=== PATIENT | male | born 1930 | race Caucasian/White ===

== ENCOUNTER 2016-02-20 12:24 | Observation (INO) ==
--- NOTE | 2016-02-20 12:42 | Emergency Department Note ---
Disposition Clinical Impression: Pneumonia, Alzheimer's dementia, Frequent falls, Failure to thrive Disposition: Admitted As Inpatient Condition: Fair Referrals: NO,PCP [Non-Partnered Physician] - Forms: ED Satisfaction Letter Time of Disposition: 14:41 General Adult HPI - General Chief complaint: ED Altered Mental Status Stated complaint: ams Time Seen by Provider: 02/20/16 12:35 Source: patient, EMS Mode of arrival: EMS Limitations: altered mental status Nursing Notes Reviewed: Yes Vital Signs Reviewed: Yes - History of Present Illness HPI Narrative: This is an 85-year-old male who presents with increased confusion. Patient has a history of Alzheimer's dementia and his 's having a hard time taking care of him at home. Patient is not able to feed himself anymore and he is becoming increasingly more difficult to deal with. There is no one here with the patient at this time and so all history is obtained from EMS patient is not really a good historian he is oriented to his name only. Patient is also apparently having more falls at home. Patient was just seen here 3 days ago for a fall and sent back home and he had another one. Pain Scale: 1 - Related Data Previous Rx's Medication Instructions Recorded Nystatin Cream [Mycostatin Cream] 1 appl TP BID #1 tube 08/17/15 Tramadol HCl [Ultram] 50 mg PO TID PRN #20 tab 02/17/16 Allergies Allergy/AdvReac Type Severity Reaction Status Date / Time No Known Allergies Allergy Verified 08/17/15 10:29 Limitations: ROS unobtainable due to patients medical condition (AMS) Past Medical History - Past Medical History Source: old records reviewed Medical history: Reports: dementia, diabetes, hyperlipidemia, hypertension, osteoporosis Psychiatric history: Reports: no psych history - Social History Smoking Status: Former smoker Smokeless Tobacco Status: No Alcohol use: Reports: none Drug use: Reports: none Physical Exam - General Limitations: altered mental status General appearance: alert, in no apparent distress - Head Head exam: atraumatic, normocephalic, normal inspection - Eye Eye exam: Present: normal appearance, PERRL, EOMI - ENT ENT exam: normal exam, normal oropharynx, mucous membranes dry - Expanded ENT Exam External ear exam: Present: normal external inspection Mouth exam: Present: normal external inspection Teeth exam: Present: normal inspection Throat exam: Present: normal inspection - Neck Neck exam: Present: normal inspection, full ROM, trachea midline - Chest Chest inspection: Present: normal inspection, symmetric chest wall rise - Respiratory Respiratory exam: Present: normal lung sounds bilaterally - Cardiovascular Cardiovascular exam: Present: regular rate, normal rhythm, normal heart sounds - Abdominal Exam Abdominal exam: Present: soft, Non-Tender. Absent: tenderness, distention, guarding, rebound, rigidity - Extremities Exam Extremities exam: Present: normal inspection, full ROM. Absent: tenderness, pedal edema - Expanded Upper Extremity Exam Shoulder exam: Present: normal inspection, full ROM Arm exam: Present: normal inspection, full ROM Elbow exam: Present: normal inspection, full ROM Forearm/Wrist exam: Present: normal inspection, full ROM Hand exam: Present: normal inspection, full ROM Vascular exam: Normal: capillary refill, radial pulse - Expanded Lower Extremity Exam Hip/Pelvis exam: Present: normal inspection, full ROM Upper leg exam: Present: normal inspection, full ROM Knee exam: Present: normal inspection, full ROM Lower leg exam: Present: normal inspection, full ROM, abrasion (superficial abrasions to b/l lower legs) Ankle exam: Present: normal inspection, full ROM Foot/toe exam: Present: normal inspection, full ROM Neurovascular/Tendon exam: Absent: motor deficit, sensory deficit, tendon deficit - Back Exam Back exam: Present: normal inspection, full ROM. Absent: tenderness - Neurological Exam Neurological exam: Present: alert. Absent: oriented X3 - Expanded Neurological Exam Patient oriented to: Present: person. Absent: place, time Coma Scale Eye Opening: Spontaneous Coma Scale Motor Response: Obeys Commands Coma Scale Verbal Response: Confused Coma Scale Total: 14 - Psychiatric Psychiatric exam: Present: normal affect, normal mood - Skin Skin exam: Present: warm, dry, normal color, other (abrasions to lower legs noted) Course - Consultations Consultation #1: I spoke with Dr. Fede collins to admit. Time: 15:15 Vital Signs Temperature 97.3 F L 02/20/16 12:26 Pulse Rate 53 02/20/16 12:26 Respiratory Rate 18 02/20/16 12:26 Blood Pressure 139/80 02/20/16 12:26 O2 Sat by Pulse Oximetry 91 L 02/20/16 12:26 Temperature 97.3 F L 02/20/16 12:26 Pulse Rate 53 01/14/17 12:26 Respiratory Rate 18 02/20/16 12:26 Blood Pressure 139/80 02/20/16 12:26 O2 Sat by Pulse Oximetry 91 L 02/20/16 12:26 Oxygen Delivery Oxygen Delivery Room Air Medical Decision Making - Medical Records Medical records reviewed: Yes I reviewed the patient's medical records. - Lab Data Lab results reviewed: Yes I reviewed the patient's lab results. Result diagrams: 02/20/16 12:54 02/20/16 12:54 Lab Results 02/20/16 02/20/16 02/20/16 Range/Units 12:54 12:54 12:54 WBC 6.5 (4.3-11.1) K/mcL RBC 4.85 (4.19-5.50) M/mcL Hgb 14.2 (12.9-16.9) g/dL Hct 41.9 (37.5-50.1) % MCV 86.4 (83.0-100.0) fL MCH 29.3 (28.0-33.3) pg MCHC 33.9 (31.6-35.5) g/dL RDW 12.5 (11.5-14.5) % Plt Count 186 (140-400) K/mcL MPV 9.4 (9.4-12.4) fL Immature Gran % 0.3 (0-4) % Seg Neutrophils % 67.1 % Lymphocytes % 18.7 % Monocytes % 11.0 % Eosinophils % 2.3 % Basophils % 0.6 % Neutrophils # 4.4 (1.6-8.9) K/mcL Lymphocytes # 1.2 (0.6-4.6) K/mcL Monocytes # 0.7 (0.0-1.3) K/mcL Eosinophils # 0.2 (0.0-0.6) K/mcL Basophils # 0.0 (0.0-0.2) K/mcL PT 12.3 H (9.4-12.1) Seconds INR 1.1 APTT 30.0 (26.0-36.0) Seconds Sodium 144 (136-145) mEq/L Potassium 4.0 (3.5-4.5) mEq/L Chloride 109 (98-109) mEq/L Carbon Dioxide 27 (19-29) mEq/L BUN 20 (8-26) mg/dL Creatinine 1.11 (0.72-1.25) mg/dL Est GFR ( Amer) > 60 (> 60) Est GFR (Non-Af Amer) > 60 (> 60) BUN/Creatinine Ratio 18 (6-26) Glucose 128 H (70-99) mg/dL Calculated Osmolality 302 H (280-300) Calcium 9.4 (8.6-10.8) mg/dL Total Bilirubin 1.5 H (0.2-1.2) mg/dL Direct Bilirubin 0.5 (0.0-0.5) mg/dL Indirect Bilirubin 1.0 (0.0-1.2) mg/dL AST 27 (5-34) Units/L ALT 23 (0-55) Units/L Alkaline Phosphatase 76 (38-126) Units/L Troponin I (0-0.03) ng/mL B-Natriuretic Peptide (0-100) pg/mL Serum Total Protein 6.8 (6.0-8.3) g/dL Albumin 3.1 L (3.5-5.0) g/dL Globulin 3.7 H (2.4-3.5) g/dL Albumin/Globulin Ratio 0.8 L (1.1-2.2) 02/20/16 02/20/16 Range/Units 12:54 12:54 WBC (4.3-11.1) K/mcL RBC (4.19-5.50) M/mcL Hgb (12.9-16.9) g/dL Hct (37.5-50.1) % MCV (83.0-100.0) fL MCH (28.0-33.3) pg MCHC (31.6-35.5) g/dL RDW (11.5-14.5) % Plt Count (140-400) K/mcL MPV (9.4-12.4) fL Immature Gran % (0-4) % Seg Neutrophils % % Lymphocytes % % Monocytes % % Eosinophils % % Basophils % % Neutrophils # (1.6-8.9) K/mcL Lymphocytes # (0.6-4.6) K/mcL Monocytes # (0.0-1.3) K/mcL Eosinophils # (0.0-0.6) K/mcL Basophils # (0.0-0.2) K/mcL PT (9.4-12.1) Seconds INR APTT (26.0-36.0) Seconds Sodium (136-145) mEq/L Potassium (3.5-4.5) mEq/L Chloride (98-109) mEq/L Carbon Dioxide (19-29) mEq/L BUN (8-26) mg/dL Creatinine (0.72-1.25) mg/dL Est GFR ( Amer) (> 60) Est GFR (Non-Af Amer) (> 60) BUN/Creatinine Ratio (6-26) Glucose (70-99) mg/dL Calculated Osmolality (280-300) Calcium (8.6-10.8) mg/dL Total Bilirubin (0.2-1.2) mg/dL Direct Bilirubin (0.0-0.5) mg/dL Indirect Bilirubin (0.0-1.2) mg/dL AST (5-34) Units/L ALT (0-55) Units/L Alkaline Phosphatase (38-126) Units/L Troponin I 0.00 (0-0.03) ng/mL B-Natriuretic Peptide 62 (0-100) pg/mL Serum Total Protein (6.0-8.3) g/dL Albumin (3.5-5.0) g/dL Globulin (2.4-3.5) g/dL Albumin/Globulin Ratio (1.1-2.2) - Radiology Data Radiology results reviewed: Yes I reviewed the patient's radiology results. - EKG Data EKG #1 EKG attestation: Yes I reviewed and interpreted this EKG. EKG shows normal: sinus rhythm Rate: bradycardia (51) Rhythm: NSR [place]/QRS: left axis deviation Interpretation: no acute changes, nonspecific ST-T wave changes
[2016-02-20 13:02] LABS: Basophils % 0.6 %; Eosinophils # 0.2 K/mcL (0.0-0.6); Eosinophils % 2.3 %; Hematocrit 41.9 % (37.5-50.1); Hemoglobin 14.2 g/dL (12.9-16.9); Immature Granulocytes % 0.3 % (0-4); Lymphocytes # 1.2 K/mcL (0.6-4.6); Lymphocytes % 18.7 %; Mean Corpuscular HGB Conc 33.9 g/dL (31.6-35.5); Mean Corpuscular Hemoglobin 29.3 pg (28.0-33.3); Mean Corpuscular Volume 86.4 fL (83.0-100.0); Mean Platelet Volume 9.4 fL (9.4-12.4); Monocytes # 0.7 K/mcL (0.0-1.3); Neutrophils # 4.4 K/mcL (1.6-8.9); Platelet Count 186 K/mcL (140-400); Red Blood Count 4.85 M/mcL (4.19-5.50); Red Cell Distribution Width 12.5 % (11.5-14.5); Segmented Neutrophils % 67.1 %
[2016-02-20 13:08] LABS: INR 1.1; Prothrombin Time 12.3 Seconds (9.4-12.1)
[2016-02-20 13:19] LABS: Alanine Aminotransferase 23 Units/L (0-55); Albumin 3.1 g/dL (3.5-5.0); Albumin/Globulin Ratio 0.8 (1.1-2.2); Alkaline Phosphatase 76 Units/L (38-126); Aspartate Amino Transferase 27 Units/L (5-34); BUN/Creatinine Ratio 18 (6-26); Bilirubin,Direct 0.5 mg/dL (0.0-0.5); Bilirubin,Total 1.5 mg/dL (0.2-1.2); Blood Urea Nitrogen 20 mg/dL (8-26); Calcium 9.4 mg/dL (8.6-10.8); Carbon Dioxide 27 mEq/L (19-29); Chloride 109 mEq/L (98-109); Globulin 3.7 g/dL (2.4-3.5); Glucose 128 mg/dL (70-99); Osmolality,Calculated 302 (280-300); Sodium 144 mEq/L (136-145); Total Protein 6.8 g/dL (6.0-8.3); eGFR For African Americans > 60 (> 60); eGFR For Non-African Americans > 60 (> 60)
[2016-02-20] MEDS ORDERED: Levofloxacin 750 MG/150 ML 750 MG/150 ML BAG IVPB ONE (14:40)
[2016-02-20] MEDS ORDERED: Ondansetron 4 MG/2 ML VIAL IVP PRN (17:54)
[2016-02-20] MEDS ORDERED: Naloxone 0.4 MG/ML INJ IVP PRN (17:54)
[2016-02-20] MEDS ORDERED: *HR* Morphine 2 MG/ML SYRINGE IVP PRN (17:54)
[2016-02-20] MEDS ORDERED: Acetaminophen 325 MG TABLET PO PRN (17:54)
[2016-02-20] MEDS ORDERED: Fluticasone Propionate Nasal 50 MCG/SPRAY BOTTLE NS PRN (17:55)
[2016-02-20] MEDS ORDERED: *HR* Dextrose 50 % in Water (Syg) 50 ML SYRINGE IVP PRN (17:56)
[2016-02-20] MEDS ORDERED: D5% in Water 1,000 ML IV PRN (17:56)
[2016-02-20] MEDS ORDERED: Dextrose Gel 15 GM PO PRN ×2 (17:56)
--- NOTE | 2016-02-20 18:22 | Internal Med History&Physical ---
Date of Encounter: 02/20/16 Time of Encounter: 18:20 Assessment and Plan (1) Pneumonia Current visit: Yes Status: Acute Afebrile, no leukocytosis Continue levoquin Sputum culture if patient makes sputum Qualifiers: Pneumonia type: due to unspecified organism Laterality: left Lung location: lower lobe of lung Qualified Code(s): J18.9 - Pneumonia, unspecified organism (2) Hypertension Current visit: Yes Status: Chronic resume home meds Qualifiers: Hypertension type: essential hypertension Qualified Code(s): I10 - Essential (primary) hypertension (3) Alzheimer's dementia Current visit: Yes Status: Chronic Worsening,patient now poor oral intake IVF hydration Nutrition consult SW for NH placement as pt's is older than him and cannot care for him anymore High risk for delirium Oreintation and reorientation Qualifiers: Alzheimer's disease onset: unspecified onset Dementia behavioral disturbance: without behavioral disturbance Qualified Code(s): G30.9 - Alzheimer's disease, unspecified; F02.80 - Dementia in other diseases classified elsewhere without behavioral disturbance (4) Failure to thrive Current visit: Yes Status: Chronic As above Qualifiers: Failure to thrive age range: in adult Qualified Code(s): R62.7 - Adult failure to thrive (5) Frequent falls Current visit: Yes Status: Chronic Pelvic Xray, Cspie Xray, no fractures Head CT no acute finding Fall precautions Monitor closely For SNF placement Internal Medicine - H&P: HPI Chief complaint: Fall Admitted From: Home Plans for Post Hospital Care: Transfer [facility] History of present illness: Mr. Carbajal is a 85 year old male Patient with Alzheimer's dementia, oriented to person only Unable to obtain history from patient as he is not oriented No family at bedside Hx and findings obtained from ER include a history of worsening lethargy due to very minimal oral intake, recurrent falls with most recent one today, worsening confusion and worsening of baseline dementia Patient' had denied any /Chest/Respiratory symptoms at time of review per ER But she stated she is older than the patient and is unable to care for him anymore hence she would love him to be placed in SNF Patient's labs work unremarkable Imaging has ruled out a fracture or intracranial bleed CXR with evolving LLL pneumonia Patient will be started on IV antibiotics for CAP, SW consult for placement, 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 High risk due to poor mental status, risk of falls and bleed, active infection with poor oral intake Past Med Surg Social Fam HX - Past Medical History Medical history: DVT, dementia, diabetes, hyperlipidemia, hypertension, osteoporosis Psychiatric history: no psych history - Social History Smoking Status: Former smoker Smokeless Tobacco Status: No Alcohol use: none Drug use: none Internal Medicine - H&P: Meds Tramadol HCl [Ultram] 50 mg PO TID PRN #20 tab 02/17/16 [Rx] Albuterol Sulfate [Ventolin Hfa] 2 puff IH Q4H PRN 02/20/16 [History] Amlodipine [Norvasc] 5 mg PO DAILY 02/20/16 [History] Beclomethasone Diprop 40mcg [Qvar 40 mcg] 1 puff IH BID 02/20/16 [History] Calcium Carbonate/Vitamin D3 [Calcium 600 + Vit D Tablet] 1 tab PO DAILY [History] Cholecalciferol (D-3) [Vitamin D] 5,000 unit PO DAILY 02/20/16 [History] Cyanocobalamin (Vitamin B-12) [Vitamin B12] 5,000 mcg PO BID 02/20/16 [History] Donepezil HCl 23 mg PO HS 02/20/16 [History] Fluticasone Propionate Nasal [Flonase] 1 - 2 spray NS DAILY PRN 02/20/16 [ History] Glimepiride [Amaryl] 1 mg PO QPM 02/20/16 [History] Glimepiride [Amaryl] 2 mg PO QAM 02/20/16 [History] Guaifenesin [Mucinex] 600 mg PO BID PRN 02/20/16 [History] Loratadine [Allergy Relief] 10 mg PO DAILY 02/20/16 [History] Losartan [Cozaar] 25 mg PO DAILY 02/20/16 [History] Memantine [Namenda] 10 mg PO DAILY 02/20/16 [History] Multivitamin [One Daily Essential] 1 tab PO DAILY 02/20/16 [History] Pantoprazole Sodium [Protonix] 40 mg PO DAILY 02/20/16 [History] Perphenazine 6 mg PO HS 02/20/16 [History] Saline Nasal [place] [[place] Nasal [place]] 1 - 2 ml NS Q4-6H PRN 02/20/16 [History] Sertraline [Zoloft] 50 mg PO DAILY 02/20/16 [History] Allergies No Known Allergies Allergy (Verified 08/17/15 10:29) ROS unobtainable: due to mental status All Systems PM: A 10-system review of systems was performed and is negative for pertinent findings except as documented above in the HPI. - Constitutional Vitals: Temp Pulse Resp BP Pulse Ox 97.1 F L 61 18 152/68 90 L 02/20/16 17:12 02/20/16 17:12 02/20/16 17:12 02/20/16 17:12 02/20/16 17:12 General appearance: Present: cachectic, A&O X 0, pleasant, no acute distress - Head Head exam: Present: atraumatic - Eye Eye exam: Present: PERRL, conjuntiva pink, sclera anicteric - ENT ENT exam: Present: mucous membranes dry - Neck Neck exam general surgery: Present: normal inspection - Respiratory Respiratory exam: Present: CTAB - Cardiovascular Cardiovascular exam: Present: RRR, +S1, +S2. Absent: JVD, tachycardia - GI/Abdominal GI/Abdominal exam: Present: normal bowel sounds, soft, no peritoneal signs. Absent: tenderness - Extremities Exam Additional comments: Left hannah covered with band aids, no pedal edema Some bruising on left arm, - Neurological Exam Additional comments: Alert, oriented to person only Moves all limbs equally No speech deficits No facial paralysis - Skin Skin exam: Present: dry, excoriation Internal Med - H&P Results - Labs CBC & Chem 7: 02/20/16 12:54 02/20/16 12:54
[2016-02-20] MEDS: 0.9 % Sodium Chloride 1,000 ML IVC SCH (19:05)
[2016-02-20] MEDS: *HR* HYDROcodone/Acet 5/325 mg TABLET PO PRN (20:36)
[2016-02-20] MEDS: Beclomethasone 40mcg MDI IH SCH (21:28)
[2016-02-20] MEDS: (Donepezil Hcl [Donepezil Hcl] 23 MG) PO SCH (23:48)
[2016-02-20] MEDS: Insulin LISPRO 300 UNITS/3 ML VIAL SQ SCH (23:49)
[2016-02-21 05:12] LABS: Basophils % 0.6 %; Eosinophils # 0.1 K/mcL (0.0-0.6); Eosinophils % 1.7 %; Hematocrit 38.3 % (37.5-50.1); Hemoglobin 13.3 g/dL (12.9-16.9); Immature Granulocytes % 0.3 % (0-4); Lymphocytes # 1.1 K/mcL (0.6-4.6); Mean Corpuscular HGB Conc 34.7 g/dL (31.6-35.5); Mean Corpuscular Volume 86.3 fL (83.0-100.0); Mean Platelet Volume 9.9 fL (9.4-12.4); Monocytes # 0.8 K/mcL (0.0-1.3); Monocytes % 11.7 %; Neutrophils # 4.8 K/mcL (1.6-8.9); Platelet Count 171 K/mcL (140-400); Red Blood Count 4.44 M/mcL (4.19-5.50); Red Cell Distribution Width 12.3 % (11.5-14.5); Segmented Neutrophils % 69.7 %
[2016-02-21 05:20] LABS: BUN/Creatinine Ratio 21 (6-26); Blood Urea Nitrogen 20 mg/dL (8-26); Calcium 8.8 mg/dL (8.6-10.8); Carbon Dioxide 26 mEq/L (19-29); Chloride 107 mEq/L (98-109); Glucose 128 mg/dL (70-99); Osmolality,Calculated 298 (280-300); Potassium 4.1 mEq/L (3.5-4.5); Sodium 142 mEq/L (136-145); eGFR For African Americans > 60 (> 60); eGFR For Non-African Americans > 60 (> 60)
[2016-02-21] MEDS: Insulin LISPRO 300 UNITS/3 ML VIAL SQ SCH ×4 (08:03→22:53)
[2016-02-21] MEDS: Multivit/Ca/Min/Fe/FA 1 TAB TABLET PO SCH (08:15)
[2016-02-21] MEDS: amLODIPine 5 MG TABLET PO SCH (08:16)
[2016-02-21] MEDS: Cyanocobalamin (B-12) 1,000 MCG TABLET PO SCH (08:16)
[2016-02-21] MEDS: Cholecalciferol (D-3) 1,000 UNIT TABLET PO SCH (08:16)
[2016-02-21] MEDS: 0.9 % Sodium Chloride 1,000 ML IVC SCH ×2 (08:22→22:52)
[2016-02-21] MEDS: Beclomethasone 40mcg MDI IH SCH ×2 (08:24→20:20)
--- NOTE | 2016-02-21 10:18 | Internal Med Progress Note ---
Date of Encounter: 02/21/16 Time of Encounter: 08:00 - Assessment and plan (1) Pneumonia Current Visit: Yes Status: Acute Assessment and plan: We will continue Levaquin treatment. Qualifiers: Pneumonia type: due to unspecified organism Laterality: left Lung location: lower lobe of lung Qualified Code(s): J18.9 - Pneumonia, unspecified organism (2) Diabetes mellitus Current Visit: Yes Status: Acute Assessment and plan: We will cover patient with sliding scale when patient is in the hospital. 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 Qualifiers: Alzheimer's disease onset: unspecified onset Dementia behavioral disturbance: without behavioral disturbance Qualified Code(s): G30.9 - Alzheimer's disease, unspecified; F02.80 - Dementia in other diseases classified elsewhere without behavioral disturbance (4) Failure to thrive Current Visit: Yes Status: Chronic Assessment and plan: Poor uptake. Nutrition consult. IV fluid to prevent dehydration. Qualifiers: Failure to thrive age range: in adult Qualified Code(s): R62.7 - Adult failure to thrive (5) Frequent falls Current Visit: Yes Status: Chronic Assessment and plan: PT evaluation and treatment. (6) Hypertension Current Visit: Yes Status: Chronic Assessment and plan: Will continue home medication. Hydralazine IV when necessary. Qualifiers: Hypertension type: essential hypertension Qualified Code(s): I10 - Essential (primary) hypertension (7) DVT prophylaxis Current Visit: Yes Status: Acute Assessment and plan: EPCD - Subjective Interval history: Patient is a 85-year-old male admitted for frequent fall and altered mental status. His past medical history is significant for dementia, DVT, diabetes, hyperlipidemia, hypertension, osteoporosis. Patient was seen and examined. He is awake, some kind of sleepy, oriented only to person (knows his name). Looks in no acute distress. No fever, vital signs stable. Lungs are clear. We will continue Levaquin to treat his pneumonia. IV fluid. Continue close monitoring. - Constitutional Vitals: Temp Pulse Resp BP Pulse Ox 98.0 F 53 14 176/70 94 L 02/21/16 06:50 02/21/16 06:50 02/21/16 08:26 02/21/16 06:50 02/21/16 08:26 General appearance: Present: cachectic, A&O X 0, pleasant, no acute distress - Head Head exam: Present: atraumatic, normocephalic - Eye Eye exam: Present: PERRL, conjuntiva pink, sclera anicteric Pupils: Present: PERRL - Neck Neck exam general surgery: Present: supple, trachea midline. Absent: lymphadenopathy - Respiratory Respiratory exam: Present: CTAB. Absent: accessory muscle use, rales, rhonchi, wheezes - Cardiovascular Cardiovascular exam: Present: RRR, +S1, +S2. Absent: diastolic murmur, gallop, rubs, systolic murmur - GI/Abdominal GI/Abdominal exam: Present: normal bowel sounds, soft, no peritoneal signs. Absent: distended, tenderness - Extremities Exam Extremities exam: Present: warm, radial pulses palpable and symetrical. Absent : calf tenderness, cyanotic, pedal edema - Neurological Exam Neurological exam: Present: CN II-XII intact, oriented X3, no focal deficits. Absent: pronater drift, facial droop, speech deficit - Skin Skin exam: Present: dry, intact Internal Medicine: Result - Labs CBC & Chem 7: 02/21/16 04:52 02/21/16 04:52 Labs: Short CBC 02/21/16 Range/Units 04:52 WBC 6.9 (4.3-11.1) K/mcL Hgb 13.3 (12.9-16.9) g/dL Hct 38.3 (37.5-50.1) % Plt Count 171 (140-400) K/mcL Neutrophils # 4.8 (1.6-8.9) K/mcL BMP 02/21/16 04:52 Sodium 142 Potassium 4.1 Chloride 107 Carbon Dioxide 26 BUN 20 Creatinine 0.96 Glucose 128 H Calcium 8.8 - ABG Interpretation ABG results: PT/INR, D-dimer PT 12.3 Seconds (9.4-12.1) H 02/20/16 12:54 Consult Discharge Plan - Plan Referrals: Jagdeep Howe DO [Primary Care Provider] -
[2016-02-21] MEDS: (Donepezil Hcl [Donepezil Hcl] 23 MG) PO SCH (21:00)
[2016-02-22] MEDS: *HR* HYDROcodone/Acet 5/325 mg TABLET PO PRN ×2 (00:01→19:33)
[2016-02-22 05:25] LABS: Basophils % 0.6 %; Eosinophils # 0.2 K/mcL (0.0-0.6); Eosinophils % 3.3 %; Hematocrit 37.1 % (37.5-50.1); Hemoglobin 12.9 g/dL (12.9-16.9); Immature Granulocytes % 0.3 % (0-4); Lymphocytes # 1.3 K/mcL (0.6-4.6); Lymphocytes % 20.6 %; Mean Corpuscular HGB Conc 34.8 g/dL (31.6-35.5); Mean Corpuscular Hemoglobin 29.7 pg (28.0-33.3); Mean Corpuscular Volume 85.5 fL (83.0-100.0); Mean Platelet Volume 9.8 fL (9.4-12.4); Monocytes # 0.6 K/mcL (0.0-1.3); Monocytes % 10.2 %; Neutrophils # 4.1 K/mcL (1.6-8.9); Platelet Count 183 K/mcL (140-400); Red Blood Count 4.34 M/mcL (4.19-5.50); Red Cell Distribution Width 12.2 % (11.5-14.5)
[2016-02-22 05:53] LABS: BUN/Creatinine Ratio 23 (6-26); Blood Urea Nitrogen 20 mg/dL (8-26); Calcium 8.7 mg/dL (8.6-10.8); Carbon Dioxide 23 mEq/L (19-29); Chloride 109 mEq/L (98-109); Glucose 142 mg/dL (70-99); Osmolality,Calculated 293 (280-300); Potassium 3.9 mEq/L (3.5-4.5); Sodium 139 mEq/L (136-145); eGFR For African Americans > 60 (> 60); eGFR For Non-African Americans > 60 (> 60)
[2016-02-22 06:03] LABS: Thyroid Stimulating Hormone 1.208 mcIU/mL (0.350-4.840)
[2016-02-22 06:10] LABS: Folate 5.3 ng/mL (7.0-31.4)
[2016-02-22] MEDS: Insulin LISPRO 300 UNITS/3 ML VIAL SQ SCH ×3 (07:49→17:40)
--- NOTE | 2016-02-22 09:33 | Electrocardiograph Report ---
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
[2016-02-22] MEDS: Cyanocobalamin (B-12) 1,000 MCG TABLET PO SCH (09:44)
[2016-02-22] MEDS: Cholecalciferol (D-3) 1,000 UNIT TABLET PO SCH (09:44)
[2016-02-22] MEDS: Multivit/Ca/Min/Fe/FA 1 TAB TABLET PO SCH (09:44)
[2016-02-22] MEDS: amLODIPine 5 MG TABLET PO SCH (09:46)
[2016-02-22] MEDS: Beclomethasone 40mcg MDI IH SCH ×2 (11:19→22:53)
[2016-02-22] MEDS: 0.9 % Sodium Chloride 1,000 ML IVC SCH (12:28)
--- NOTE | 2016-02-22 14:36 | Internal Med Progress Note ---
Date of Encounter: 02/22/16 Time of Encounter: 09:00 - Assessment and plan (1) Pneumonia Current Visit: Yes Status: Acute Assessment and plan: We will continue Levaquin treatment. Qualifiers: Pneumonia type: due to unspecified organism Laterality: left Lung location: lower lobe of lung Qualified Code(s): J18.9 - Pneumonia, unspecified organism (2) Diabetes mellitus Current Visit: Yes Status: Acute Assessment and plan: We will cover patient with sliding scale when patient is in the hospital. Qualifiers: Diabetes mellitus type: type 2 Diabetes mellitus complication status: without complication Diabetes mellitus shelter insulin use: without technician terminal and repeater use Qualified Code(s): E11.9 - Type 2 diabetes mellitus without complications (3) Alzheimer's dementia Current Visit: Yes Status: Chronic Assessment and plan: Continue home med. Qualifiers: Alzheimer's disease onset: unspecified onset Dementia behavioral disturbance: without behavioral disturbance Qualified Code(s): G30.9 - Alzheimer's disease, unspecified; F02.80 - Dementia in other diseases classified elsewhere without behavioral disturbance (4) Failure to thrive Current Visit: Yes Status: Chronic Assessment and plan: Poor uptake. Nutrition consult. IV fluid to prevent dehydration. Supplemental ensure added per life educator. Qualifiers: Failure to thrive age range: in adult Qualified Code(s): R62.7 - Adult failure to thrive (5) Frequent falls Current Visit: Yes Status: Chronic Assessment and plan: PT evaluation and treatment. (6) Hypertension Current Visit: Yes Status: Chronic Assessment and plan: Will continue home medication. Hydralazine IV when necessary. Qualifiers: Hypertension type: essential hypertension Qualified Code(s): I10 - Essential (primary) hypertension (7) DVT prophylaxis Current Visit: Yes Status: Acute Assessment and plan: EPCD - Time Spent With Patient 25 - 35 minutes - Subjective Interval history: Patient is a 85-year-old male admitted for frequent fall and altered mental status. His past medical history is significant for dementia, DVT, diabetes, hyperlipidemia, hypertension, osteoporosis. Patient was seen and examined. He is awake, alert, oriented to person (knows his name) and the time (call tell me his ). Looks in no acute distress. No fever, vital signs stable. Lungs are clear. We will continue Levaquin to treat his pneumonia. IV fluid. Continue close monitoring. PT OT evaluation, plan for ECF discharge. - Constitutional Vitals: Temp Pulse Resp BP Pulse Ox 97.9 F 59 16 132/53 96 02/22/16 12:00 02/22/16 12:00 02/22/16 12:00 02/22/16 12:00 02/22/16 12:00 General appearance: Present: cachectic, A&O X 2, pleasant, no acute distress - Head Head exam: Present: atraumatic, normocephalic - Eye Eye exam: Present: PERRL, conjuntiva pink, sclera anicteric Pupils: Present: PERRL - Neck Neck exam general surgery: Present: supple, trachea midline. Absent: lymphadenopathy - Respiratory Respiratory exam: Present: CTAB. Absent: accessory muscle use, rales, rhonchi, wheezes - Cardiovascular Cardiovascular exam: Present: RRR, +S1, +S2. Absent: diastolic murmur, gallop, rubs, systolic murmur - GI/Abdominal GI/Abdominal exam: Present: normal bowel sounds, soft, no peritoneal signs. Absent: distended, tenderness - Extremities Exam Extremities exam: Present: warm, radial pulses palpable and symetrical. Absent : calf tenderness, cyanotic, pedal edema Additional comments: Right heel compression ulcer well dressed - Neurological Exam Neurological exam: Present: CN II-XII intact, no focal deficits. Absent: pronater drift, facial droop, speech deficit - Skin Skin exam: Present: dry, intact Internal Medicine: Result - Labs CBC & Chem 7: 02/22/16 04:44 02/22/16 04:44 Labs: Short CBC 02/22/16 Range/Units 04:44 WBC 6.3 (4.3-11.1) K/mcL Hgb 12.9 (12.9-16.9) g/dL Hct 37.1 L (37.5-50.1) % Plt Count 183 (140-400) K/mcL Neutrophils # 4.1 (1.6-8.9) K/mcL BMP 02/22/16 04:44 Sodium 139 Potassium 3.9 Chloride 109 Carbon Dioxide 23 BUN 20 Creatinine 0.87 Glucose 142 H Calcium 8.7 - ABG Interpretation ABG results: PT/INR, D-dimer PT 12.3 Seconds (9.4-12.1) H 02/20/16 12:54 Consult Discharge Plan - Plan Referrals: Jagdeep Howe DO [Primary Care Provider] -
[2016-02-22] MEDS ORDERED: Levofloxacin 750 MG/150 ML 750 MG/150 ML BAG IVPB SCH (15:30)
[2016-02-22] MEDS: Levofloxacin 750 MG/150 ML 750 MG/150 ML BAG IVPB SCH (15:59)
[2016-02-23] MEDS: Insulin LISPRO 300 UNITS/3 ML VIAL SQ SCH ×5 (03:13→21:03)
[2016-02-23] MEDS: (Donepezil Hcl [Donepezil Hcl] 23 MG) PO SCH ×2 (03:13→21:55)
[2016-02-23] MEDS: *HR* HYDROcodone/Acet 5/325 mg TABLET PO PRN (06:37)
[2016-02-23] MEDS: 0.9 % Sodium Chloride 1,000 ML IVC SCH (06:49)
[2016-02-23] MEDS: amLODIPine 5 MG TABLET PO SCH (07:59)
[2016-02-23] MEDS: Multivit/Ca/Min/Fe/FA 1 TAB TABLET PO SCH (08:04)
[2016-02-23] MEDS: Cholecalciferol (D-3) 1,000 UNIT TABLET PO SCH (08:04)
[2016-02-23] MEDS: Cyanocobalamin (B-12) 1,000 MCG TABLET PO SCH (08:04)
[2016-02-23] MEDS: Beclomethasone 40mcg MDI IH SCH ×2 (10:36→20:33)
--- NOTE | 2016-02-23 11:05 | Internal Med Progress Note ---
Date of Encounter: 02/23/16 Time of Encounter: 09:00 - Assessment and plan (1) Pneumonia Current Visit: Yes Status: Suspected Assessment and plan: We will continue Levaquin treatment. Qualifiers: Pneumonia type: due to Pneumococcus Laterality: left Lung location: lower lobe of lung Qualified Code(s): J13 - Pneumonia due to Streptococcus pneumoniae (2) Diabetes mellitus Current Visit: Yes Status: Acute Assessment and plan: We will cover patient with sliding scale when patient is in the hospital. Qualifiers: Diabetes mellitus type: type 2 Diabetes mellitus complication status: without complication Diabetes mellitus assisted insulin use: without terminal operations supervisor use Qualified Code(s): E11.9 - Type 2 diabetes mellitus without complications (3) Alzheimer's dementia Current Visit: Yes Status: Chronic Assessment and plan: Continue home med. Qualifiers: Alzheimer's disease onset: unspecified onset Dementia behavioral disturbance: without behavioral disturbance Qualified Code(s): G30.9 - Alzheimer's disease, unspecified; F02.80 - Dementia in other diseases classified elsewhere without behavioral disturbance (4) Failure to thrive Current Visit: Yes Status: Chronic Assessment and plan: Poor uptake. Nutrition consult. IV fluid to prevent dehydration. Supplemental ensure added per warehouser. Qualifiers: Failure to thrive age range: in adult Qualified Code(s): R62.7 - Adult failure to thrive (5) Frequent falls Current Visit: Yes Status: Chronic Assessment and plan: PT evaluation and treatment. (6) Hypertension Current Visit: Yes Status: Chronic Assessment and plan: Will continue home medication. Hydralazine IV when necessary. Qualifiers: Hypertension type: essential hypertension Qualified Code(s): I10 - Essential (primary) hypertension (7) DVT prophylaxis Current Visit: Yes Status: Acute Assessment and plan: EPCD - Time Spent With Patient 25 - 35 minutes - Subjective Interval history: Patient is a 85-year-old male admitted for frequent fall and altered mental status. His past medical history is significant for dementia, DVT, diabetes, hyperlipidemia, hypertension, osteoporosis. Patient was seen and examined. He is awake, alert, oriented to person (knows his name) and the time (call tell me his ). Looks in no acute distress. No fever, vital signs stable. Lungs are clear. Vomited once today, vomiting is stomach content. We will continue Levaquin to treat his pneumonia. IV fluid. Continue close monitoring. PT OT evaluation, plan for ECF discharge. - Constitutional Vitals: Temp Pulse Resp BP Pulse Ox 98.0 F 77 18 143/61 95 02/23/16 10:08 02/23/16 10:08 02/23/16 10:08 02/23/16 10:08 02/23/16 10:08 General appearance: Present: cachectic, A&O X 2, pleasant, no acute distress - Head Head exam: Present: atraumatic, normocephalic - Eye Eye exam: Present: PERRL, conjuntiva pink, sclera anicteric Pupils: Present: PERRL - Neck Neck exam general surgery: Present: supple, trachea midline. Absent: lymphadenopathy - Respiratory Respiratory exam: Present: CTAB. Absent: accessory muscle use, rales, rhonchi, wheezes - Cardiovascular Cardiovascular exam: Present: RRR, +S1, +S2. Absent: diastolic murmur, gallop, rubs, systolic murmur - GI/Abdominal GI/Abdominal exam: Present: normal bowel sounds, soft, no peritoneal signs. Absent: distended, tenderness - Extremities Exam Extremities exam: Present: warm, radial pulses palpable and symetrical. Absent : calf tenderness, cyanotic, pedal edema - Neurological Exam Neurological exam: Present: CN II-XII intact, oriented X3, no focal deficits. Absent: pronater drift, facial droop, speech deficit - Skin Skin exam: Present: dry, intact Internal Medicine: Result - Labs CBC & Chem 7: 02/22/16 04:44 02/22/16 04:44 - ABG Interpretation ABG results: PT/INR, D-dimer PT 12.3 Seconds (9.4-12.1) H 02/20/16 12:54 Consult Discharge Plan - Plan Referrals: Jagdeep Howe DO [Primary Care Provider] -
[2016-02-23] MEDS: Levofloxacin 750 MG/150 ML 750 MG/150 ML BAG IVPB SCH (16:12)
[2016-02-24 03:33] LABS: Basophils % 0.4 %; Eosinophils # 0.2 K/mcL (0.0-0.6); Eosinophils % 2.1 %; Hematocrit 38.9 % (37.5-50.1); Hemoglobin 13.8 g/dL (12.9-16.9); Immature Granulocytes % 0.3 % (0-4); Lymphocytes # 1.3 K/mcL (0.6-4.6); Mean Corpuscular HGB Conc 35.5 g/dL (31.6-35.5); Mean Corpuscular Hemoglobin 29.7 pg (28.0-33.3); Mean Corpuscular Volume 83.7 fL (83.0-100.0); Mean Platelet Volume 9.7 fL (9.4-12.4); Monocytes # 0.8 K/mcL (0.0-1.3); Monocytes % 10.2 %; Neutrophils # 5.7 K/mcL (1.6-8.9); Platelet Count 242 K/mcL (140-400); Red Blood Count 4.65 M/mcL (4.19-5.50); Red Cell Distribution Width 12.8 % (11.5-14.5)
[2016-02-24 03:41] LABS: BUN/Creatinine Ratio 19 (6-26); Blood Urea Nitrogen 16 mg/dL (8-26); Calcium 9.4 mg/dL (8.6-10.8); Carbon Dioxide 24 mEq/L (19-29); Chloride 107 mEq/L (98-109); Glucose 145 mg/dL (70-99); Osmolality,Calculated 292 (280-300); Potassium 4.2 mEq/L (3.5-4.5); Sodium 139 mEq/L (136-145); eGFR For African Americans > 60 (> 60); eGFR For Non-African Americans > 60 (> 60)
[2016-02-24 03:50] LABS: Hemoglobin A1C 5.4 %
[2016-02-24] MEDS: *HR* HYDROcodone/Acet 5/325 mg TABLET PO PRN (06:29)
[2016-02-24] MEDS: Beclomethasone 40mcg MDI IH SCH (07:54)
[2016-02-24] MEDS: Cyanocobalamin (B-12) 1,000 MCG TABLET PO SCH (07:55)
[2016-02-24] MEDS: Multivit/Ca/Min/Fe/FA 1 TAB TABLET PO SCH (07:55)
[2016-02-24] MEDS: amLODIPine 5 MG TABLET PO SCH (07:56)
[2016-02-24] MEDS: Cholecalciferol (D-3) 1,000 UNIT TABLET PO SCH (07:56)
[2016-02-24] MEDS ORDERED: Folic Acid 1 MG TABLET PO SCH (09:00)
--- NOTE | 2016-02-24 10:34 | Internal Med Progress Note ---
Date of Encounter: 02/24/16 Time of Encounter: 09:00 - Assessment and plan (1) Pneumonia Current Visit: Yes Status: Suspected Assessment and plan: We will continue Levaquin treatment. Change to PO today. PT/OT on case, plan for ECF discharge, SW is working on case. Qualifiers: Pneumonia type: due to Pneumococcus Laterality: left Lung location: lower lobe of lung Qualified Code(s): J13 - Pneumonia due to Streptococcus pneumoniae (2) Diabetes mellitus Current Visit: Yes Status: Acute Assessment and plan: We will cover patient with sliding scale when patient is in the hospital. Qualifiers: Diabetes mellitus type: type 2 Diabetes mellitus complication status: without complication Diabetes mellitus salvage determiner insulin use: without salvage determiner use Qualified Code(s): E11.9 - Type 2 diabetes mellitus without complications (3) Alzheimer's dementia Current Visit: Yes Status: Chronic Assessment and plan: Continue home med. Qualifiers: Alzheimer's disease onset: unspecified onset Dementia behavioral disturbance: without behavioral disturbance Qualified Code(s): G30.9 - Alzheimer's disease, unspecified; F02.80 - Dementia in other diseases classified elsewhere without behavioral disturbance (4) Failure to thrive Current Visit: Yes Status: Chronic Assessment and plan: Poor uptake but improved now. Nutrition consult. Supplemental ensure added per central sterilization technician. Qualifiers: Failure to thrive age range: in adult Qualified Code(s): R62.7 - Adult failure to thrive (5) Frequent falls Current Visit: Yes Status: Chronic Assessment and plan: PT evaluation and treatment. (6) Hypertension Current Visit: Yes Status: Chronic Assessment and plan: Will continue home medication. Hydralazine IV when necessary. Qualifiers: Hypertension type: essential hypertension Qualified Code(s): I10 - Essential (primary) hypertension (7) DVT prophylaxis Current Visit: Yes Status: Acute Assessment and plan: EPCD - Subjective Interval history: Patient is a 85-year-old male admitted for frequent fall and altered mental status. His past medical history is significant for dementia, DVT, diabetes, hyperlipidemia, hypertension, osteoporosis. Patient was seen and examined. He is awake, alert, oriented to person (knows his name) and the time (call tell me his ). Looks in no acute distress. No fever, vital signs stable. Lungs are clear. No nausea/vomiting. Change IV Levaquin to po today. PT OT on case, plan for ECF discharge. - Constitutional Vitals: Temp Pulse Resp BP Pulse Ox 98.1 F 65 15 164/71 94 L 02/24/16 04:35 02/24/16 04:35 02/24/16 04:35 02/24/16 04:35 02/24/16 04:35 General appearance: Present: cachectic, A&O X 2, pleasant, no acute distress - Head Head exam: Present: atraumatic, normocephalic - Eye Eye exam: Present: PERRL, conjuntiva pink, sclera anicteric Pupils: Present: PERRL - Neck Neck exam general surgery: Present: supple, trachea midline. Absent: lymphadenopathy - Respiratory Respiratory exam: Present: CTAB. Absent: accessory muscle use, rales, rhonchi, wheezes - Cardiovascular Cardiovascular exam: Present: RRR, +S1, +S2. Absent: diastolic murmur, gallop, rubs, systolic murmur - GI/Abdominal GI/Abdominal exam: Present: normal bowel sounds, soft, no peritoneal signs. Absent: distended, tenderness - Extremities Exam Extremities exam: Present: warm, radial pulses palpable and symetrical. Absent : calf tenderness, cyanotic, pedal edema - Neurological Exam Neurological exam: Present: CN II-XII intact, oriented X3, no focal deficits. Absent: pronater drift, facial droop, speech deficit - Skin Skin exam: Present: dry, intact Internal Medicine: Result - Labs CBC & Chem 7: 02/24/16 03:05 02/24/16 03:05 Labs: Short CBC 02/24/16 Range/Units 03:05 WBC 8.0 (4.3-11.1) K/mcL Hgb 13.8 (12.9-16.9) g/dL Hct 38.9 (37.5-50.1) % Plt Count 242 (140-400) K/mcL Neutrophils # 5.7 (1.6-8.9) K/mcL BMP 02/24/16 03:05 Sodium 139 Potassium 4.2 Chloride 107 Carbon Dioxide 24 BUN 16 Creatinine 0.84 Glucose 145 H Calcium 9.4 - ABG Interpretation ABG results: PT/INR, D-dimer PT 12.3 Seconds (9.4-12.1) H 02/20/16 12:54 Consult Discharge Plan - Plan Referrals: Jagdeep Howe DO [Primary Care Provider] -
--- NOTE | 2016-02-24 11:23 | Discharge Summary ---
Date of Encounter: 02/24/16 Time of Encounter: 11:00 - Discharge Diagnosis (1) Pneumonia Priority: Primary Status: Suspected Qualifiers: Pneumonia type: due to Pneumococcus Laterality: left Lung location: lower lobe of lung Qualified Code(s): J13 - Pneumonia due to Streptococcus pneumoniae (2) Diabetes mellitus Priority: Secondary Status: Acute Qualifiers: Diabetes mellitus type: type 2 Diabetes mellitus complication status: without complication Diabetes mellitus senior care insulin use: without intermodal customer service use Qualified Code(s): E11.9 - Type 2 diabetes mellitus without complications (3) Alzheimer's dementia Priority: Secondary Status: Chronic Qualifiers: Alzheimer's disease onset: unspecified onset Dementia behavioral disturbance: without behavioral disturbance Qualified Code(s): G30.9 - Alzheimer's disease, unspecified; F02.80 - Dementia in other diseases classified elsewhere without behavioral disturbance (4) Failure to thrive Priority: Secondary Status: Chronic Qualifiers: Failure to thrive age range: in adult Qualified Code(s): R62.7 - Adult failure to thrive (5) Frequent falls Priority: Primary Status: Chronic (6) Hypertension Priority: Secondary Status: Chronic Qualifiers: Hypertension type: essential hypertension Qualified Code(s): I10 - Essential (primary) hypertension (7) DVT prophylaxis Priority: Secondary Status: Acute - Discharge Medications Prescriptions: Folic Acid 1 mg PO DAILY #30 tablet Levofloxacin [Levaquin] 750 mg PO DAILY #3 tablet Tramadol HCl [Ultram] 50 mg PO TID PRN #10 tab PRN Reason: Pain Home Medications: Albuterol Sulfate [Ventolin Hfa] 2 puff IH Q4H PRN 02/20/16 [History] Amlodipine [Norvasc] 5 mg PO DAILY 02/20/16 [History] Beclomethasone Diprop 40mcg [QVAR 40 mcg] 1 puff IH BID 02/20/16 [History] Calcium Carbonate/Vitamin D3 [Calcium 600 + Vit D Tablet] 1 tab PO DAILY [History] Cholecalciferol (D-3) [Vitamin D] 5,000 unit PO DAILY 02/20/16 [History] Cyanocobalamin (Vitamin B-12) [Vitamin B12] 5,000 mcg PO BID 02/20/16 [History] Donepezil HCl 23 mg PO HS 02/20/16 [History] Fluticasone Propionate Nasal [Flonase] 1 - 2 spray NS DAILY PRN 02/20/16 [ History] Glimepiride [Amaryl] 1 mg PO QPM 02/20/16 [History] Glimepiride [Amaryl] 2 mg PO QAM 02/20/16 [History] Guaifenesin [Mucinex] 600 mg PO BID PRN 02/20/16 [History] Loratadine [Allergy Relief] 10 mg PO DAILY 02/20/16 [History] Losartan [Cozaar] 25 mg PO DAILY 02/20/16 [History] Memantine [Namenda] 10 mg PO DAILY 02/20/16 [History] Multivitamin [One Daily Essential] 1 tab PO DAILY 02/20/16 [History] Pantoprazole Sodium [Protonix] 40 mg PO DAILY 02/20/16 [History] Perphenazine 6 mg PO HS 02/20/16 [History] Saline Nasal [place] [[place] Nasal [place]] 1 - 2 ml NS Q4-6H PRN 02/20/16 [History] Sertraline [Zoloft] 50 mg PO DAILY 02/20/16 [History] Folic Acid 1 mg PO DAILY #30 tablet 02/24/16 [Rx] Levofloxacin [Levaquin] 750 mg PO DAILY #3 tablet 02/24/16 [Rx] Tramadol HCl [Ultram] 50 mg PO TID PRN #10 tab 02/24/16 [Rx] Allergies/Adverse Reactions: Allergies No Known Allergies Allergy (Verified 08/17/15 10:29) - Notes to Outpatient Provider Patient has pneumonia, on by mouth Levaquin, please continue for 3 more days to finish a seven-day course. Date of admission: 02/20/16 15:43 Primary care physician: Jagdeep Howe DO Consults: 02/20/16 18:44 consult to manager motor [Consult to Nutrition] [CONS] Routine Comment: Consulting Provider: NUTRITION Reason for Dietary Consult: Supplemental Nutrition 02/21/16 10:23 Consult to Occupational Therapy [CONS] Routine Comment: Evaluate, develop and implement POC Consult to Physical Therapy [CONS] Routine Comment: Evaluate, develop and implement POC Discharging clinician: Ehsan More Anticipated date of discharge: 02/24/16 - Patient Status Disposition: Transfer SNF Condition: Fair Overall status at discharge: patient is back to baseline - Discharge Instructions Follow Up With: Jagdeep Howe DO [Primary Care Provider] - - Diet and Activity Activity: as per physical therapy Diet: diabetic diet (Pureed diet with ensure supplement.) Interval History: Mr. Carbajal is a 85 year old male Patient with Alzheimer's dementia, oriented to person only Unable to obtain history from patient as he is not oriented No family at bedside Hx and findings obtained from ER include a history of worsening lethargy due to very minimal oral intake, recurrent falls with most recent one today, worsening confusion and worsening of baseline dementia Patient' had denied any /Chest/Respiratory symptoms at time of review per ER But she stated she is older than the patient and is unable to care for him anymore hence she would love him to be placed in SNF Patient's labs work unremarkable Imaging has ruled out a fracture or intracranial bleed CXR with evolving LLL pneumonia Hospital course: Mr. Carbajal is a 85 year old male admitted as a left lower lobe pneumonia. He was treated with antibiotic. After treatment, his condition has improved. His mental status has improved and his uptake has improved. He has no cough, no shortness or breath. He had no fever, vital signs stable. WBC is within normal limits. He was discharged to [facility] for further care. I saw and examined patient today. His was awake, alert, still demented but oriented 2. No fever, vital signs stable, lungs are clear. Patient will continue by mouth Levaquin for 3 more days and DC to longterm. - Time Spent with Patient Total time spent providing and/or coordinating discharge services: 35 minutes Greater than 30 minutes - Constitutional Vitals: Temp Pulse Resp BP Pulse Ox 98.1 F 65 15 164/71 94 L 02/24/16 04:35 02/24/16 04:35 02/24/16 04:35 02/24/16 04:35 02/24/16 04:35 General appearance: Present: cachectic, A&O X 2, pleasant, no acute distress - Head Head exam: Present: atraumatic, normocephalic - Eye Eye exam: Present: PERRL, conjuntiva pink, sclera anicteric Pupils: Present: PERRL - Neck Neck exam general surgery: Present: supple, trachea midline. Absent: lymphadenopathy - Respiratory Respiratory exam: Present: CTAB. Absent: accessory muscle use, rales, rhonchi, wheezes - Cardiovascular Cardiovascular exam: Present: RRR, +S1, +S2. Absent: diastolic murmur, gallop, rubs, systolic murmur - GI/Abdominal GI/Abdominal exam: Present: normal bowel sounds, soft, no peritoneal signs. Absent: distended, tenderness - Extremities Exam Extremities exam: Present: warm, radial pulses palpable and symetrical. Absent : calf tenderness, cyanotic, pedal edema - Neurological Exam Neurological exam: Present: CN II-XII intact, oriented X3, no focal deficits. Absent: pronater drift, facial droop, speech deficit - Skin Skin exam: Present: dry, intact
--- NOTE | 2016-02-24 11:35 | Physician Discharge Referral ---
ExtendedCare Referral Info Transfer To: [facility] Provider in Charge after Transfer: Other - Diagnosis (1) Pneumonia Priority: Primary Status: Suspected (2) Diabetes mellitus Priority: Secondary Status: Acute (3) Alzheimer's dementia Priority: Secondary Status: Chronic (4) Failure to thrive Priority: Secondary Status: Chronic (5) Frequent falls Priority: Primary Status: Chronic (6) Hypertension Priority: Secondary Status: Chronic (7) DVT prophylaxis Priority: Secondary Status: Acute - Transfer Medications Prescriptions: Folic Acid 1 mg PO DAILY #30 tablet Levofloxacin [Levaquin] 750 mg PO DAILY #3 tablet Tramadol HCl [Ultram] 50 mg PO TID PRN #10 tab PRN Reason: Pain Home Medications: Albuterol Sulfate [Ventolin Hfa] 2 puff IH Q4H PRN 02/20/16 [History] Amlodipine [Norvasc] 5 mg PO DAILY 02/20/16 [History] Beclomethasone Diprop 40mcg [QVAR 40 mcg] 1 puff IH BID 02/20/16 [History] Calcium Carbonate/Vitamin D3 [Calcium 600 + Vit D Tablet] 1 tab PO DAILY [History] Cholecalciferol (D-3) [Vitamin D] 5,000 unit PO DAILY 02/20/16 [History] Cyanocobalamin (Vitamin B-12) [Vitamin B12] 5,000 mcg PO BID 02/20/16 [History] Donepezil HCl 23 mg PO HS 02/20/16 [History] Fluticasone Propionate Nasal [Flonase] 1 - 2 spray NS DAILY PRN 02/20/16 [ History] Glimepiride [Amaryl] 1 mg PO QPM 02/20/16 [History] Glimepiride [Amaryl] 2 mg PO QAM 02/20/16 [History] Guaifenesin [Mucinex] 600 mg PO BID PRN 02/20/16 [History] Loratadine [Allergy Relief] 10 mg PO DAILY 02/20/16 [History] Losartan [Cozaar] 25 mg PO DAILY 02/20/16 [History] Memantine [Namenda] 10 mg PO DAILY 02/20/16 [History] Multivitamin [One Daily Essential] 1 tab PO DAILY 02/20/16 [History] Pantoprazole Sodium [Protonix] 40 mg PO DAILY 02/20/16 [History] Perphenazine 6 mg PO HS 02/20/16 [History] Saline Nasal [place] [[place] Nasal [place]] 1 - 2 ml NS Q4-6H PRN 02/20/16 [History] Sertraline [Zoloft] 50 mg PO DAILY 02/20/16 [History] Folic Acid 1 mg PO DAILY #30 tablet 02/24/16 [Rx] Levofloxacin [Levaquin] 750 mg PO DAILY #3 tablet 02/24/16 [Rx] Tramadol HCl [Ultram] 50 mg PO TID PRN #10 tab 02/24/16 [Rx] Allergies/Adverse Reactions: Allergies No Known Allergies Allergy (Verified 08/17/15 10:29) - Respiratory Orders Smoking Cessation: Smoking cessation has been advised. For more information, call the [employer] Tobacco Quit Line at 4-322-WXQL-NOW. - Advance Directives Code Status: Full Code - Rehabiliation Orders Rehab Potential: Fair Rehab Orders: Evaluation for Physical Therapy, Evaluation for Occupational Therapy, Evaluation for Speech Therapy - Diet Orders Pureed (DM diet with ensure supplement) CERTIFICATION: I certify that the transfer of the above named patient to an Extended Care Facility is necessary for the continuing treatment of the diagnosis listed. The above information is true and accurate reflection of patient's current condition. Confidential - Redisclosure prohibited without a patient's written consent.
[2016-02-24 12:37] VITALS: BP 153/70
[2016-02-25] MEDS ORDERED: levoFLOXacin 500 MG TABLET PO SCH (09:00)
== END 2016-02-24 13:04 ==
LOC: EMEROO 12:24 → 3ANU 12:24
PROVIDERS: ADMIT Internal Medicine; ATTEND Internal Medicine

== ENCOUNTER 2016-11-13 21:27 | Inpatient (IN) ==
[2016-11-13 21:49] LABS: Basophils % 0.3 %; Eosinophils % 0.8 %; Hematocrit 44.4 % (37.5-50.1); Hemoglobin 14.8 g/dL (12.9-16.9); Immature Granulocytes % 0.3 % (0-4); Lymphocytes % 10.6 %; Mean Corpuscular HGB Conc 33.3 g/dL (31.6-35.5); Mean Corpuscular Hemoglobin 28.6 pg (28.0-33.3); Mean Corpuscular Volume 85.9 fL (83.0-100.0); Monocytes % 4.3 %; Platelet Count 182 K/mcL (140-400); Red Blood Count 5.17 M/mcL (4.19-5.50); Red Cell Distribution Width 13.2 % (11.5-14.5); Segmented Neutrophils % 83.7 %
[2016-11-13 21:50] LABS: Eosinophils # 0.1 K/mcL (0.0-0.6); Lymphocytes # 1.3 K/mcL (0.6-4.6); Monocytes # 0.6 K/mcL (0.0-1.3); Neutrophils # 10.6 K/mcL (1.6-8.9)
[2016-11-13 22:04] LABS: Alanine Aminotransferase 20 Units/L (0-55); Albumin 3.8 g/dL (3.5-5.0); Alkaline Phosphatase 113 Units/L (38-126); Aspartate Amino Transferase 21 Units/L (5-34); BUN/Creatinine Ratio 9 (6-26); Bilirubin,Direct 0.3 mg/dL (0.0-0.5); Bilirubin,Indirect 0.4 mg/dL (0.0-1.2); Bilirubin,Total 0.7 mg/dL (0.2-1.2); Blood Urea Nitrogen 11 mg/dL (8-26); Calcium 9.9 mg/dL (8.6-10.8); Carbon Dioxide 28 mEq/L (19-29); Chloride 103 mEq/L (98-109); Globulin 3.9 g/dL (2.4-3.5); Glucose 123 mg/dL (70-99); Osmolality,Calculated 299 (280-300); Potassium 4.2 mEq/L (3.5-4.5); Sodium 144 mEq/L (136-145); Total Protein 7.7 g/dL (6.0-8.3); eGFR For African Americans > 60 (> 60); eGFR For Non-African Americans 56 (> 60)
[2016-11-13] MEDS ORDERED: 0.9 % Sodium Chloride 1,000 ML IVC ONE (22:15)
[2016-11-13 22:17] LABS: Bilirubin,Urine Negative (Negative); Blood,Urine Moderate (Negative); Clarity,Urine Clear (Clear); Color,Urine Yellow (Yellow); Glucose,Urine (UA) Normal (Normal); Ketones,Urine Negative (Negative); Leukocyte Esterase,Urine Trace (Negative); Nitrite,Urine Negative (Negative); Protein,Urine 30 mg/dL (Neg-Trace); Specific Gravity,Urine 1.015 (1.010-1.025); Urobilinogen,Urine Normal (Normal)
[2016-11-13 22:20] LABS: Bacteria,Urine Few per hpf (None-Few); Hyaline Casts,Urine None Seen per lpf (None-Few); Squamous Epithelial Cell,Urine Moderate per lpf (None-Few)
--- NOTE | 2016-11-13 22:23 | Emergency Department Note ---
Disposition Clinical Impression: Sepsis, Rigors, Urinary tract infection, Cough Disposition: Admitted As Inpatient Condition: Critical Referrals: Jagdeep Howe DO [Primary Care Provider] - Forms: ED Satisfaction Letter Time of Disposition: 23:20 General Adult HPI - General Chief complaint: ED Shortness of Breath/Dyspnea Stated complaint: 'low bp, cecil" Source: family, EMS Limitations: altered mental status Nursing Notes Reviewed: Yes Vital Signs Reviewed: Yes - History of Present Illness HPI Narrative: 86-year-old male presents emergency room for fevers and shaking. His noticed him to have increasing shaking and thought it was Reiger's. She took his blood pressure and it was low. Ayden arrived and noticed his blood pressure to be elevated. He was sent to the ER for evaluation. His states he was feeling well up until this evening. He has a history of Alzheimer 's and is a poor historian. We noted a fever here of 102. There is a slight increase in his cough. No reports of any vomiting. No diarrhea. No other complaints. Pain Scale: 0 - Related Data Home Medications Medication Instructions Recorded Confirmed Albuterol Sulfate [Ventolin Hfa] 2 puff IH Q4H PRN 02/20/16 02/20/16 Beclomethasone Diprop 40mcg [QVAR 1 puff IH BID 02/20/16 02/20/16 40 mcg] Calcium Carbonate/Vitamin D3 1 tab PO DAILY 02/20/16 02/20/16 [Calcium 600 + Vit D Tablet] Cholecalciferol (D-3) [Vitamin D] 5,000 unit PO DAILY 02/20/16 02/20/16 Cyanocobalamin (Vitamin B-12) 5,000 mcg PO BID 02/20/16 02/20/16 [Vitamin B12] Donepezil HCl 23 mg PO HS 02/20/16 02/20/16 Fluticasone Propionate Nasal 1 - 2 spray NS DAILY PRN 02/20/16 02/20/16 [Flonase] Glimepiride [Amaryl] 1 mg PO QPM 02/20/16 02/20/16 Glimepiride [Amaryl] 2 mg PO QAM 02/20/16 02/20/16 Guaifenesin [Mucinex] 600 mg PO BID PRN 02/20/16 02/20/16 Loratadine [Allergy Relief] 10 mg PO DAILY 02/20/16 02/20/16 Losartan [Cozaar] 25 mg PO DAILY 02/20/16 02/20/16 Memantine [Namenda] 10 mg PO DAILY 02/20/16 02/20/16 Multivitamin [One Daily Essential] 1 tab PO DAILY 02/20/16 02/20/16 Pantoprazole Sodium [Protonix] 40 mg PO DAILY 02/20/16 02/20/16 Perphenazine 6 mg PO HS 02/20/16 02/20/16 Saline Nasal [place] [[place] Nasal 1 - 2 ml NS Q4-6H PRN 02/20/16 02/20/16 [place]] Sertraline [Zoloft] 50 mg PO DAILY 02/20/16 02/20/16 amLODIPine [Norvasc] 5 mg PO DAILY 02/20/16 02/20/16 Previous Rx's Medication Instructions Recorded Folic Acid 1 mg PO DAILY #30 tablet 02/24/16 Tramadol HCl [Ultram] 50 mg PO TID PRN #10 tab 02/24/16 levoFLOXacin [Levaquin] 750 mg PO DAILY #3 tablet 02/24/16 Allergies Allergy/AdvReac Type Severity Reaction Status Date / Time No Known Allergies Allergy Verified 08/17/15 10:29 Limitations: ROS unobtainable due to patients medical condition (Patient has Alzheimer's is a poor historian) Past Medical History - Past Medical History Medical history: Reports: DVT, dementia, diabetes, hyperlipidemia, hypertension , osteoporosis Psychiatric history: Reports: no psych history - Social History Smoking Status: Former smoker Smokeless Tobacco Status: No Alcohol use: Reports: none Drug use: Reports: none Physical Exam - General Limitations: altered mental status General appearance: anxious, lethargic - Head Head exam: atraumatic, normocephalic - Eye Eye exam: Present: normal appearance - ENT ENT exam: normal exam - Neck Neck exam: Present: normal inspection, full ROM - Chest Chest inspection: Present: normal inspection, symmetric chest wall rise - Respiratory Respiratory exam: Present: normal lung sounds bilaterally. Absent: respiratory distress, wheezes - Cardiovascular Cardiovascular exam: Present: normal rhythm, tachycardia - Abdominal Exam Abdominal exam: Present: soft, Non-Tender. Absent: tenderness, distention - Extremities Exam Extremities exam: Present: normal inspection - Expanded Lower Extremity Exam Neurovascular/Tendon exam: Present: normal capillary refill - Neurological Exam Neurological exam: Present: other (bilateral upper extrem shaking, appears as though rigors ) - Skin Skin exam: Present: warm Course Course Narrative: Fever control of 102 was given with Tylenol. He was given IV fluids due to his elevated lactate. His chest x-ray was read as normal. Vital Signs Temperature 102.1 F H 11/13/16 21:30 Pulse Rate 94 11/13/16 21:30 Respiratory Rate 18 11/13/16 21:30 Blood Pressure 141/80 11/13/16 21:30 O2 Sat by Pulse Oximetry 95 11/13/16 21:30 Temperature 102.1 F H 11/13/16 21:30 Pulse Rate 94 11/13/16 21:30 Respiratory Rate 18 11/13/16 21:30 Blood Pressure 141/80 11/13/16 21:30 O2 Sat by Pulse Oximetry 95 11/13/16 21:30 Oxygen Delivery Oxygen Delivery Nasal Cannula Medical Decision Making - MDM Narrative Medical decision making narrative: Workup in the ER revealed elevated lactate level V.6 with an elevated fever. The only thing the did notice with that was he had an increased cough today with these Reiger's and shakes. His urinalysis showed some WBCs present in the urine with some trace leukocyte Estrace. His chest x-ray did not reveal any abnormalities. I did a CT of his chest to look for pneumonia but that was also read as negative. He has no belly pain on my exam. He is a poor historian. His LFTs and lipase are normal. Troponin was normal. The only thing that seemed to be abnormal on exam was his coughing. It could be that he has not showed a pneumonia and soft rehydrate him. Blood cultures are ordered. He does follow sepsis protocol criteria. I did speak with the hospitalist. If anything they may need to add on a CT abdomen and pelvis overnight if anything changes or if the patient deteriorates. IV fluids, iv zithromax, rocephin blood cultures, urine culture - Medical Records Medical records reviewed: Yes I reviewed the patient's medical records. - Lab Data Lab results reviewed: Yes I reviewed the patient's lab results. Result diagrams: 11/13/16 21:41 11/13/16 21:41 Lab Results 11/13/16 11/13/16 11/13/16 Range/Units 21:41 21:41 21:41 WBC 12.7 H (4.3-11.1) K/mcL RBC 5.17 (4.19-5.50) M/mcL Hgb 14.8 (12.9-16.9) g/dL Hct 44.4 (37.5-50.1) % MCV 85.9 (83.0-100.0) fL MCH 28.6 (28.0-33.3) pg MCHC 33.3 (31.6-35.5) g/dL RDW 13.2 (11.5-14.5) % Plt Count 182 (140-400) K/mcL MPV 9.0 L (9.4-12.4) fL Immature Gran % 0.3 (0-4) % Seg Neutrophils % 83.7 % Lymphocytes % 10.6 % Monocytes % 4.3 % Eosinophils % 0.8 % Basophils % 0.3 % Neutrophils # 10.6 H (1.6-8.9) K/mcL Lymphocytes # 1.3 (0.6-4.6) K/mcL Monocytes # 0.6 (0.0-1.3) K/mcL Eosinophils # 0.1 (0.0-0.6) K/mcL Basophils # 0.0 (0.0-0.2) K/mcL Sodium 144 (136-145) mEq/L Potassium 4.2 (3.5-4.5) mEq/L Chloride 103 (98-109) mEq/L Carbon Dioxide 28 (19-29) mEq/L BUN 11 (8-26) mg/dL Creatinine 1.22 (0.72-1.25) mg/dL Est GFR ( Amer) > 60 (> 60) Est GFR (Non-Af Amer) 56 L (> 60) BUN/Creatinine Ratio 9 (6-26) Glucose 123 H (70-99) mg/dL Calculated Osmolality 299 (280-300) Lactic Acid 5.6 H* (0.5-2.2) mmol/L Calcium 9.9 (8.6-10.8) mg/dL Total Bilirubin 0.7 (0.2-1.2) mg/dL Direct Bilirubin 0.3 (0.0-0.5) mg/dL Indirect Bilirubin 0.4 (0.0-1.2) mg/dL AST 21 (5-34) Units/L ALT 20 (0-55) Units/L Alkaline Phosphatase 113 (38-126) Units/L Troponin I (0-0.03) ng/mL Serum Total Protein 7.7 (6.0-8.3) g/dL Albumin 3.8 (3.5-5.0) g/dL Globulin 3.9 H (2.4-3.5) g/dL Albumin/Globulin Ratio 1.0 L (1.1-2.2) Urine Color (Yellow) Urine Clarity (Clear) Urine pH (5.0-8.0) pH Units Ur Specific [place] (1.010-1.025) Urine Protein (Neg-Trace) mg/dL Urine Glucose (UA) (Normal) mg/dL Urine Ketones (Negative) mg/dL Urine Blood (Negative) Urine Nitrite (Negative) Urine Bilirubin (Negative) Urine Urobilinogen (Normal) mg/dL Ur Leukocyte Esterase (Negative) Urine Microscopic RBC (0-3) per hpf Urine Microscopic WBC (0-3) per hpf Ur Squamous Epith Cells (None-Few) per lpf Urine Bacteria (None-Few) per hpf Hyaline Casts (None-Few) per lpf Ur Culture Indicated? (NO) 11/13/16 11/13/16 Range/Units 21:41 22:10 WBC (4.3-11.1) K/mcL RBC (4.19-5.50) M/mcL Hgb (12.9-16.9) g/dL Hct (37.5-50.1) % MCV (83.0-100.0) fL MCH (28.0-33.3) pg MCHC (31.6-35.5) g/dL RDW (11.5-14.5) % Plt Count (140-400) K/mcL MPV (9.4-12.4) fL Immature Gran % (0-4) % Seg Neutrophils % % Lymphocytes % % Monocytes % % Eosinophils % % Basophils % % Neutrophils # (1.6-8.9) K/mcL Lymphocytes # (0.6-4.6) K/mcL Monocytes # (0.0-1.3) K/mcL Eosinophils # (0.0-0.6) K/mcL Basophils # (0.0-0.2) K/mcL Sodium (136-145) mEq/L Potassium (3.5-4.5) mEq/L Chloride (98-109) mEq/L Carbon Dioxide (19-29) mEq/L BUN (8-26) mg/dL Creatinine (0.72-1.25) mg/dL Est GFR ( Amer) (> 60) Est GFR (Non-Af Amer) (> 60) BUN/Creatinine Ratio (6-26) Glucose (70-99) mg/dL Calculated Osmolality (280-300) Lactic Acid (0.5-2.2) mmol/L Calcium (8.6-10.8) mg/dL Total Bilirubin (0.2-1.2) mg/dL Direct Bilirubin (0.0-0.5) mg/dL Indirect Bilirubin (0.0-1.2) mg/dL AST (5-34) Units/L ALT (0-55) Units/L Alkaline Phosphatase (38-126) Units/L Troponin I 0.01 (0-0.03) ng/mL Serum Total Protein (6.0-8.3) g/dL Albumin (3.5-5.0) g/dL Globulin (2.4-3.5) g/dL Albumin/Globulin Ratio (1.1-2.2) Urine Color Yellow (Yellow) Urine Clarity Clear (Clear) Urine pH 7.0 (5.0-8.0) pH Units Ur Specific [place] 1.015 (1.010-1.025) Urine Protein 30 H (Neg-Trace) mg/dL Urine Glucose (UA) Normal (Normal) mg/dL Urine Ketones Negative (Negative) mg/dL Urine Blood Moderate H (Negative) Urine Nitrite Negative (Negative) Urine Bilirubin Negative (Negative) Urine Urobilinogen Normal (Normal) mg/dL Ur Leukocyte Esterase Trace H (Negative) Urine Microscopic RBC 5-15 H (0-3) per hpf Urine Microscopic WBC 5-15 H (0-3) per hpf Ur Squamous Epith Cells Moderate H (None-Few) per lpf Urine Bacteria Few (None-Few) per hpf Hyaline Casts None Seen (None-Few) per lpf Ur Culture Indicated? YES A (NO) - Radiology Data Radiology results reviewed: Yes I reviewed the patient's radiology results. - EKG Data EKG #1 EKG results narrative: EKG shows a rate of 97. Normal sinus rhythm. Left axis deviation. [place] interval was undetectable due to artifact from him shaking. QRS is 83. QTC 343. No signs of acute ischemia. Critical Care Time Critical Care Time: Yes Total Critical Care Time: 35 Attestation: Critical care time spent and sepsis resuscitation with IV fluids and IV antibiotics.
[2016-11-13] MEDS ORDERED: Ibuprofen 800 MG TABLET PO ONE (23:11)
[2016-11-13] MEDS ORDERED: Azithromycin 500 MG in D5% in Water 250 ML IVPB ONE (23:15)
--- NOTE | 2016-11-14 00:19 | Internal Med History&Physical ---
<Saw Jenkins - Last Filed: 11/14/16 01:51> Date of Encounter: 11/14/16 Time of Encounter: 00:19 Assessment and Plan (1) Septic shock Current visit: Yes Status: Acute 3 SIRS criteria Temp 102.1F, WBC 13.3, HR 106, PNA vs UTI as source of infection. Sudden onset rigors, fever, non-productive cough, and low blood pressure 74/44 at home. Lactic acid 5.6, repeat lactic acid level 1.6 after sepsis bolus BP improved after IVF bolus in ED Started on Rocephin and Azithromycin thi the ED Continue Axithromycin, Rocephin, and consider adding Vancomycin if condition continues to worsen or positive blood cultures Flu test pending Blood, urine, and sputum cultures pending Patient is DNR code status. Continue monitoring. (2) CAP (community acquired pneumonia) Current visit: Yes Status: Acute Sudden onset rigors, fever, non-productive cough CXR and CT chest show no signs of PNA but patient is severely dehydrated Consider repeat CXR in AM after IV hydration. Qualifiers: Laterality: unspecified laterality Qualified Code(s): J18.9 - Pneumonia, unspecified organism (3) Urinary tract infection Current visit: Yes Status: Acute Urine culture pending Prior h/o prostate surgery Continue Rocephin 1g IV daily Qualifiers: Urinary tract infection type: acute cystitis Hematuria presence: with hematuria Qualified Code(s): N30.01 - Acute cystitis with hematuria (4) Alzheimer's dementia Current visit: No Status: Chronic Continue home meds Qualifiers: Alzheimer's disease onset: unspecified onset Dementia behavioral disturbance: without behavioral disturbance Qualified Code(s): G30.9 - Alzheimer's disease, unspecified; F02.80 - Dementia in other diseases classified elsewhere without behavioral disturbance (5) Hypertension Current visit: No Status: Chronic Continue home meds Qualifiers: Hypertension type: essential hypertension Qualified Code(s): I10 - Essential (primary) hypertension (6) Diabetes mellitus Current visit: No Status: Acute Continue diabetic diet and low dose SSI Qualifiers: Diabetes mellitus type: type 2 Diabetes mellitus complication status: without complication Diabetes mellitus medical terminologist insulin use: without medical terminologist use Qualified Code(s): E11.9 - Type 2 diabetes mellitus without complications (7) Pulmonary nodules Current visit: Yes Status: Acute CT chest reveals Scattered 2- 3 mm nodules bilaterally, not well seen on this exam due to respiratory motion which degrades image quality but grossly not significantly changed when compared to the exam of December 05, 2015. Continue outpatient follow up with An[employer] Service Telephone Operator/ Dr. Urbina (8) DVT prophylaxis Current visit: No Status: Acute Heparin subq TID (9) Hypokalemia Current visit: Yes Status: Acute Supplement K continue to monitor (10) Hypomagnesemia Current visit: Yes Status: Acute Supplement Mag continue to monitor Internal Medicine - H&P: HPI Chief complaint: Fever Admitted From: Home Plans for Post Hospital Care: Home History of present illness: Mr. Carbajal is a 86 year old male with a PMH of Alzheimer's dementia, DM, hypertension, hyperlipidemia, and osteoporosis that presented from home c/o not feeling well since yesterday evening. He has advanced dementia and is at bedsie. She reports patient had a fever 102F, chills, sinus congestion, non- productive cough, and low blood pressure 74/44 at home. His BP was elevated once EMS arrived. denies patient c/o CP, SOB, abd pain, N/V/D/C, leg edema , or recent sick contacts. Patient quit smoking [address] see Dr. Urbina for outpatient monitoring of pulmonary nodules. In the ED, labs revealed UTI, lactic acid 5.6, leukocytosis, and pulmonary nodules on CT chest. Past Med Surg Social Fam HX - Past Medical History Medical history: DVT, dementia, diabetes, hyperlipidemia, hypertension, osteoporosis Psychiatric history: no psych history - Past Surgical History Surgical History: cholecystectomy, prostatectomy - Social History Smoking Status: Former smoker Smokeless Tobacco Status: No Alcohol use: none Drug use: none - Family History Mother Hx Family Respiratory Disorders: Yes Internal Medicine - H&P: Meds Albuterol Sulfate [Ventolin Hfa] 2 puff IH Q4H PRN 02/20/16 [History] Beclomethasone Diprop 40mcg [QVAR 40 mcg] 1 puff IH BID 02/20/16 [History] Calcium Carbonate/Vitamin D3 [Calcium 600 + Vit D Tablet] 1 tab PO DAILY [History] Cholecalciferol (D-3) [Vitamin D] 5,000 unit PO DAILY 02/20/16 [History] Cyanocobalamin (Vitamin B-12) [Vitamin B12] 5,000 mcg PO BID 02/20/16 [History] Donepezil HCl 23 mg PO HS 02/20/16 [History] Fluticasone Propionate Nasal [Flonase] 1 - 2 spray NS DAILY PRN 02/20/16 [ History] Glimepiride [Amaryl] 1 mg PO QPM 02/20/16 [History] Glimepiride [Amaryl] 2 mg PO QAM 02/20/16 [History] Guaifenesin [Mucinex] 600 mg PO BID PRN 02/20/16 [History] Loratadine [Allergy Relief] 10 mg PO DAILY 02/20/16 [History] Losartan [Cozaar] 25 mg PO DAILY 02/20/16 [History] Memantine [Namenda] 10 mg PO DAILY 02/20/16 [History] Multivitamin [One Daily Essential] 1 tab PO DAILY 02/20/16 [History] Pantoprazole Sodium [Protonix] 40 mg PO DAILY 02/20/16 [History] Perphenazine 6 mg PO HS 02/20/16 [History] Saline Nasal [place] [[place] Nasal [place]] 1 - 2 ml NS Q4-6H PRN 02/20/16 [History] Sertraline [Zoloft] 50 mg PO DAILY 02/20/16 [History] amLODIPine [Norvasc] 5 mg PO DAILY 02/20/16 [History] Folic Acid 1 mg PO DAILY #30 tablet 02/24/16 [Rx] Tramadol HCl [Ultram] 50 mg PO TID PRN #10 tab 02/24/16 [Rx] levoFLOXacin [Levaquin] 750 mg PO DAILY #3 tablet 02/24/16 [Rx] 3 Allergy/AdvReac Type Severity Reaction Status Date / Time No Known Allergies Allergy Verified 08/17/15 10:29 All Systems PM: A 10-system review of systems was performed and is negative for pertinent findings except as documented above in the HPI. - Constitutional Constitutional: no chills, no falls, no weakness, no weight gain, no weight loss - EENT Eyes: no change in vision Nose, mouth and throat: nasal congestion, post-nasal drip, sinus pressure, no sinus pain, no sore throat - Cardiovascular Cardiovascular ROS IM: no chest pain, no palpitations - Respiratory Respiratory: cough, no dyspnea, no chest congestion, no excessive phlegm production, no change in phlegm color - Gastrointestinal Gastrointestinal: no abdominal pain, no bloating, no constipation, no diarrhea, no nausea, no vomiting - Genitourinary Genitourinary ROS male: urinary hesitancy, no dysuria, no hematuria, no urinary frequency, no urinary urgency - Musculoskeletal Musculoskeletal ROS IM: no back pain, no numbness, no tingling - Integumentary Integumentary IM: no erythema, no new lesions, no skin ulcer - Neurological Neurological ROS: confusion, no dizziness, no numbness, no tingling, no weakness - Psychiatric Psychiatric: no anxiety, no depression - Endocrine Endocrine IM: no polydipsia, no polyphagia, no polyuria - Constitutional Vitals: Temp Pulse Resp BP Pulse Ox 99.1 F 105 19 132/56 93 11/14/16 00:01 11/14/16 00:01 11/14/16 00:01 11/14/16 00:01 11/14/16 00:01 General appearance: Present: cooperative, no acute distress. Absent: answers questions appropriately Exam: Pleasantly confused, responds to name, appears to be in NAD - Head Head exam: Present: atraumatic, normal inspection, normocephalic - Eye Eye exam: Present: EOMI, conjuntiva pink - ENT ENT exam: Present: mucous membranes moist - Expanded ENT Exam Throat exam: Present: post pharyngeal erythema - Neck Neck exam general surgery: Present: normal inspection, supple. Absent: tenderness - Respiratory Respiratory exam: Present: decreased breath sounds (bibasilar). Absent: accessory muscle use, respiratory distress, wheezes, tachypnea - Cardiovascular Cardiovascular exam: Present: RRR, +S1, +S2 - GI/Abdominal GI/Abdominal exam: Present: normal bowel sounds, soft. Absent: distended, guarding, tenderness - Extremities Exam Extremities exam: Present: normal capillary refill, warm. Absent: pedal edema, tenderness - Back Exam Back exam: Present: normal inspection. Absent: tenderness - Neurological Exam Neurological exam: Present: altered. Absent: motor sensory deficit, facial droop, speech deficit - Psychiatric Psychiatric exam: Absent: agitated, anxious - Skin Skin exam: Present: dry, normal color, warm Internal Med - H&P Results - Labs CBC & Chem 7: 11/14/16 01:07 11/14/16 01:07 - EKG Data -: EKG Interpreted by Myself EKG shows normal: sinus rhythm (NSR, rate of 97. Left axis deviation. [place] interval was undetectable due to artifact from him shaking. QRS is 83. QTC 343. No signs of acute ischemia) - Impressions ITS Impressions Chest X-Ray 11/13/16 21:42 IMPRESSION: No acute cardiopulmonary process. D/ / Lb Mace MD / Lb Mace MD Interpreting Provider: Lb Mace MD Chest CT 11/13/16 22:25 IMPRESSION: 1. No CT finding to account for patient's cough and fever. 2. Scattered 2- 3 mm nodules bilaterally, not well seen on this exam due to respiratory motion which degrades image quality but grossly not significantly changed when compared to the exam of December 05, 2015. D/ / Allan Ram MD / Allan Ram MD Interpreting Provider: Allan Ram MD <Ilan Martínez - Last Filed: 11/14/16 04:50> Date of Encounter: 11/14/16 Time of Encounter: 03:35 ROS unobtainable: due to mental status ( not present at the moment; ROS as obtained from by Dr. Jenkins) - Constitutional Vitals: Temp Pulse Resp BP Pulse Ox 99.1 F 105 20 132/56 95 11/14/16 00:01 11/14/16 00:01 11/14/16 03:55 11/14/16 00:01 11/14/16 03:55 General appearance: Present: A&O X 1, no acute distress Exam: Patient looks dehydrated but in no acute distress - Head Head exam: Present: atraumatic, normal inspection - Eye Eye exam: Present: EOMI, PERRL. Absent: scleral icterus Pupils: Present: normal accommodation - ENT ENT exam: Present: mucous membranes dry, normal exam - Neck Neck exam general surgery: Present: supple - Expanded Neck Exam Neck exam: Absent: carotid bruit - Respiratory Respiratory exam: Present: rales (faint crackles right base). Absent: accessory muscle use, respiratory distress, rhonchi, wheezes - Cardiovascular Cardiovascular exam: Present: RRR, +S1, +S2 - GI/Abdominal GI/Abdominal exam: Present: soft. Absent: tenderness - Extremities Exam Extremities exam: Present: normal capillary refill, warm. Absent: calf tenderness Additional comments: atrophy of muscles - Back Exam Back exam: Absent: CVA tenderness (L), CVA tenderness (R) - Neurological Exam Neurological exam: Present: no focal deficits - Psychiatric Psychiatric exam: Present: normal affect, normal mood Additional comments: confused -- ? baseline - Skin Skin exam: Present: dry, warm. Absent: rash Additional comments: +skin tenting Internal Med - H&P Results - Labs CBC & Chem 7: 11/14/16 01:07 11/14/16 01:07 Labs: Short CBC 11/14/16 Range/Units 01:07 WBC 13.3 H (4.3-11.1) K/mcL Hgb 13.5 (12.9-16.9) g/dL Hct 39.3 (37.5-50.1) % Plt Count 155 (140-400) K/mcL Neutrophils # 11.7 H (1.6-8.9) K/mcL BMP 11/14/16 01:07 Sodium 140 Potassium 3.2 L D Chloride 106 Carbon Dioxide 26 BUN 12 Creatinine 1.12 Glucose 106 H Calcium 9.3 - EKG Data -: EKG Interpreted by Myself EKG shows normal: sinus rhythm (NSR; poor qualtiy tracing) - Diagnostic Studies Chest x-ray Status: image reviewed by me (negative) - Attending Attestation I discussed the patient LOWER [place], PMH, ROS, lab data, and exam findings with Dr. Jenkins. I then saw and examined patient independently as well. By the time I saw patient, his had left. Patient unable to provide any history whatsoever. Despite IVF bolus in ER and maintenance fluids, patient still looks clinically dry. I spoke with ER this evening and, based upon the history they provided me, as well as that of Dr. Jenkins, I have a strong suspicion that patient has pneumonia despite negative CXR and CT. He is still in need of IVF and we'll monitor his I/O status. Additionally, we will continue IV antibiotics and monitor him closely. I asked ER staff to obtain Influenza PCR given his presentation. Other than my comments above and noted exam findings, I agree with Dr. Jenkins's assessment and plan.
[2016-11-14] MEDS ORDERED: Dextrose Gel 15 GM PO PRN ×2 (00:29)
[2016-11-14] MEDS ORDERED: D5% in Water 1,000 ML IVC PRN (00:29)
[2016-11-14] MEDS ORDERED: *HR* Dextrose 50 % in Water (Syg) 50 ML SYRINGE IVP PRN (00:29)
[2016-11-14] MEDS ORDERED: 0.9 % Sodium Chloride 1,000 ML IVC SCH (00:30)
[2016-11-14] MEDS ORDERED: Insulin DETEMIR 100 UNIT/ML X5UNITS SQ SCH (00:30)
[2016-11-14] MEDS ORDERED: traMADol 50 MG TABLET PO PRN ×2 (00:49→09:33)
[2016-11-14] MEDS ORDERED: Fluticasone Propionate Nasal 50 MCG/SPRAY BOTTLE NS PRN (00:49)
[2016-11-14] MEDS ORDERED: Ondansetron 4 MG/2 ML VIAL IVP PRN (00:55)
[2016-11-14] MEDS ORDERED: Acetaminophen 325 MG TABLET PO PRN ×2 (00:55→09:33)
[2016-11-14] MEDS ORDERED: Azithromycin 500 MG in D5% in Water 250 ML IVPB SCH ×2 (01:00→23:00)
[2016-11-14] MEDS ORDERED: ARICEPT 23 MG PO SCH (01:00)
[2016-11-14] MEDS ORDERED: Naloxone 0.4 MG/ML INJ IVP PRN (01:13)
[2016-11-14 01:15] LABS: Basophils % 0.2 %; Eosinophils % 0.1 %; Hematocrit 39.3 % (37.5-50.1); Hemoglobin 13.5 g/dL (12.9-16.9); Immature Granulocytes % 0.5 % (0-4); Lymphocytes # 0.4 K/mcL (0.6-4.6); Lymphocytes % 3.2 %; Mean Corpuscular HGB Conc 34.4 g/dL (31.6-35.5); Mean Corpuscular Hemoglobin 28.6 pg (28.0-33.3); Mean Corpuscular Volume 83.3 fL (83.0-100.0); Mean Platelet Volume 9.2 fL (9.4-12.4); Monocytes % 7.8 %; Neutrophils # 11.7 K/mcL (1.6-8.9); Platelet Count 155 K/mcL (140-400); Red Blood Count 4.72 M/mcL (4.19-5.50); Red Cell Distribution Width 12.8 % (11.5-14.5); Segmented Neutrophils % 88.2 %
[2016-11-14 01:20] LABS: INR 1.1; Prothrombin Time 11.8 Seconds (9.4-12.1)
[2016-11-14 01:22] LABS: Activated Partial Thrombo Time 27.6 Seconds (26.0-36.0)
[2016-11-14 01:30] LABS: BUN/Creatinine Ratio 11 (6-26); Blood Urea Nitrogen 12 mg/dL (8-26); Calcium 9.3 mg/dL (8.6-10.8); Carbon Dioxide 26 mEq/L (19-29); Chloride 106 mEq/L (98-109); Glucose 106 mg/dL (70-99); Osmolality,Calculated 290 (280-300); Potassium 3.2 mEq/L (3.5-4.5); Sodium 140 mEq/L (136-145); eGFR For African Americans > 60 (> 60); eGFR For Non-African Americans > 60 (> 60)
[2016-11-14] MEDS: Insulin LISPRO 300 UNITS/3 ML VIAL SQ SCH ×5 (01:42→22:29)
[2016-11-14] MEDS: Ipratropium/Albuterol Neb 3 ML IH SCH ×7 (01:43→23:16)
[2016-11-14] MEDS ORDERED: Magnesium Sulfate 2 GM in D5% in Water 100 ML IVPB ONE (01:58)
[2016-11-14] MEDS: 0.9 % Sodium Chloride 1,000 ML IVC SCH ×2 (05:05→12:53)
[2016-11-14] MEDS: *HR* Heparin 5,000 UNIT/ML VIAL SQ SCH ×3 (05:49→22:30)
[2016-11-14] MEDS ORDERED: Insulin LISPRO 300 UNITS/3 ML VIAL SQ SCH (08:00)
[2016-11-14] MEDS ORDERED: Calcium 600 + Vit D PO SCH (09:00)
[2016-11-14] MEDS ORDERED: VITAMIN B PO SCH (09:00)
[2016-11-14] MEDS: amLODIPine 5 MG TABLET PO SCH (09:07)
[2016-11-14] MEDS: Cholecalciferol (D-3) 1,000 UNIT TABLET PO SCH (09:13)
[2016-11-14] MEDS: Folic Acid 1 MG TABLET PO SCH (09:13)
[2016-11-14] MEDS: Multivit/Ca/Min/Fe/FA 1 TAB TABLET PO SCH (09:13)
[2016-11-14] MEDS: Loratadine 10 MG TABLET PO SCH (09:13)
[2016-11-14] MEDS ORDERED: *HR* LORazepam 2 MG/ML VIAL ONE (11:33)
[2016-11-14] MEDS: *HR* LORazepam 2 MG/ML VIAL IVP PRN ×2 (11:40→14:06)
[2016-11-14] MEDS: Beclomethasone 40mcg MDI IH SCH ×2 (11:48→20:11)
[2016-11-14 21:01] LABS: Acinetobacter baumannii by PCR Not Detected (Not Detect); Candida albicans by PCR Not Detected (Not Detect); Candida glabrata by PCR Not Detected (Not Detect); Candida krusei by PCR Not Detected (Not Detect); Candida parapsilosis by PCR Not Detected (Not Detect); Candida tropicalis by PCR Not Detected (Not Detect); Enterococcus by PCR Not Detected (Not Detect); Escherichia coli by PCR Not Detected (Not Detect); Klebsiella oxytoca by PCR Not Detected (Not Detect); Klebsiella pneumoniae by PCR Not Detected (Not Detect); Pseudomonas aeruginosa by PCR ***DETECTED*** (Not Detect); Serratia marcescens by PCR Not Detected (Not Detect); Staphylococcus aureus by PCR Not Detected (Not Detect); Streptococcus agalactiae(B)PCR Not Detected (Not Detect); Streptococcus by PCR Not Detected (Not Detect); Streptococcus pneumoniae PCR Not Detected (Not Detect); Streptococcus pyogenes (A) PCR Not Detected (Not Detect); blaKPC Carbapenem-Resist Gene Not Detected (Not Detect); mecA Methicillin-Resist Gene Not Detected (Not Detect); vanA/B Vancomycin-Resist Genes Not Detected (Not Detect)
[2016-11-14] MEDS: Perphenazine 2 MG TABLET PO SCH (22:42)
[2016-11-15] MEDS ORDERED: Azithromycin 500 MG in D5% in Water 250 ML IVPB SCH (01:00)
[2016-11-15] MEDS: Piperacillin/Tazobactam 3.375 GM in D5% in Water (Mini-Bag+) 100 ML IVPB SCH ×4 (01:09→23:42)
[2016-11-15] MEDS: Ipratropium/Albuterol Neb 3 ML IH SCH ×6 (04:01→23:33)
[2016-11-15] MEDS: *HR* Heparin 5,000 UNIT/ML VIAL SQ SCH ×3 (07:08→21:52)
[2016-11-15] MEDS ORDERED: Magnesium Sulfate 2 GM in D5% in Water 100 ML IVPB ONE (07:49)
[2016-11-15] MEDS: Beclomethasone 40mcg MDI IH SCH ×2 (08:01→20:05)
[2016-11-15] MEDS: Cyanocobalamin (B-12) 1,000 MCG TABLET PO SCH (08:27)
[2016-11-15] MEDS: Loratadine 10 MG TABLET PO SCH (08:27)
[2016-11-15] MEDS: Multivit/Ca/Min/Fe/FA 1 TAB TABLET PO SCH (08:27)
[2016-11-15] MEDS: amLODIPine 5 MG TABLET PO SCH (08:28)
[2016-11-15] MEDS: Cholecalciferol (D-3) 1,000 UNIT TABLET PO SCH (08:28)
[2016-11-15] MEDS: Insulin LISPRO 300 UNITS/3 ML VIAL SQ SCH ×4 (08:29→20:34)
[2016-11-15 08:43] LABS: Basophils % 0.1 %; Hematocrit 34.9 % (37.5-50.1); Hemoglobin 11.9 g/dL (12.9-16.9); Immature Granulocytes % 2.7 % (0-4); Lymphocytes % 6.3 %; Mean Corpuscular HGB Conc 34.1 g/dL (31.6-35.5); Mean Corpuscular Hemoglobin 29.3 pg (28.0-33.3); Mean Platelet Volume 10.1 fL (9.4-12.4); Monocytes # 0.9 K/mcL (0.0-1.3); Monocytes % 5.9 %; Neutrophils # 12.8 K/mcL (1.6-8.9); Platelet Count 140 K/mcL (140-400); Red Blood Count 4.06 M/mcL (4.19-5.50); Red Cell Distribution Width 13.3 % (11.5-14.5)
[2016-11-15] MEDS: Folic Acid 1 MG TABLET PO SCH (08:43)
[2016-11-15 08:47] LABS: Calcium 8.5 mg/dL (8.6-10.8)
[2016-11-15 08:50] LABS: Potassium 4.3 mEq/L (3.5-4.5)
--- NOTE | 2016-11-15 16:31 | Internal Med Progress Note ---
Date of Encounter: 11/15/16 Time of Encounter: 09:30 - Assessment and plan (1) Pseudomonal septic shock Current Visit: Yes Status: Acute Assessment and plan: Add cefepime to the zosyn for additional coverage. CrCl approx 35 currently. (2) Septic shock Current Visit: Yes Status: Resolved Assessment and plan: Blood cultures resulted in pseudomonas aeruginosa in 1, and gram-negative zahraa and another which could still be reflective of Pseudomonas. Urine culture also grew Pseudomonas. Sensitivities are pending. Currently on Zosyn Cipro However currently his white blood cell count went up from 13 yesterday to 15 today. He is currently hemodynamically stable, afebrile, because it is now within normal limits. He is showing signs of KASANDRA so Zosyn will have to be renally dosed. Will add abx for double coverage. (3) KASANDRA (acute kidney injury) Current Visit: Yes Status: Acute Assessment and plan: Most likely related to sepsis and medications. Currently he is hemodynamically stable and we will renally dose medications. Losartan has helped. Continue IV fluids for now (4) CAP (community acquired pneumonia) Current Visit: Yes Status: Acute Assessment and plan: Repeat chest x-ray in the morning after IV hydration to verify there is no focal consolidations. Qualifiers: Laterality: unspecified laterality Qualified Code(s): J18.9 - Pneumonia, unspecified organism (5) Urinary tract infection Current Visit: Yes Status: Acute Assessment and plan: Secondary to pseudomonas. Continue Zosyn and Cipro. Need to add additional antibiotic if patient condition does not improve. 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 History is limited as patient has baseline dementia. He denies any sort of pain shortness of breath nausea vomiting. States he has a good appetite. - Constitutional Vitals: Temp Pulse Resp BP Pulse Ox 99.2 F 96 20 110/63 96 11/15/16 11:29 11/15/16 11:29 11/15/16 15:44 11/15/16 11:29 11/15/16 15:44 General appearance: Present: A&O X 1, no acute distress Exam: Pleasantly confused, responds to name, appears to be in NAD - Head Head exam: Present: atraumatic, normal inspection, normocephalic - Eye Eye exam: Present: EOMI, conjuntiva pink - ENT ENT exam: Present: mucous membranes moist - Expanded ENT Exam Throat exam: Present: post pharyngeal erythema - Neck Neck exam general surgery: Present: normal inspection, supple. Absent: tenderness - Respiratory Respiratory exam: Present: decreased breath sounds (bibasilar). Absent: accessory muscle use, respiratory distress, wheezes, tachypnea - Cardiovascular Cardiovascular exam: Present: RRR, +S1, +S2 - GI/Abdominal GI/Abdominal exam: Present: normal bowel sounds, soft. Absent: distended, guarding, tenderness - Extremities Exam Extremities exam: Present: normal capillary refill, warm. Absent: pedal edema, tenderness - Back Exam Back exam: Present: normal inspection. Absent: tenderness - Neurological Exam Neurological exam: Present: altered. Absent: motor sensory deficit, facial droop, speech deficit - Psychiatric Psychiatric exam: Absent: agitated, anxious - Skin Skin exam: Present: dry, normal color, warm Internal Medicine: Result - Labs CBC & Chem 7: 11/15/16 08:08 11/15/16 08:08 Labs: Short CBC 11/15/16 Range/Units 08:08 WBC 15.1 H (4.3-11.1) K/mcL Hgb 11.9 L D (12.9-16.9) g/dL Hct 34.9 L (37.5-50.1) % Plt Count 140 (140-400) K/mcL Neutrophils # 12.8 H (1.6-8.9) K/mcL BMP 11/15/16 08:08 Sodium 136 Potassium 4.3 D Chloride 107 Carbon Dioxide 23 BUN 19 Creatinine 1.44 H Glucose 141 H Calcium 8.5 L - ABG Interpretation ABG results: PT/INR, D-dimer PT 11.8 Seconds (9.4-12.1) 10/09/17 01:07 Consult Discharge Plan - Plan Referrals: Jagdeep Howe DO [Primary Care Provider] - (web request 11/14/2016)
--- NOTE | 2016-11-15 16:34 | Electrocardiograph Report ---
[place] [id number] Test Date: 2016-11-13 Pat Name: Oc aCrbajal Department: 103 Room: 2A12 Gender: [facility] Aide: MAYA : 1930 Requested By: Germain Bustamante Order Number: [id number] Reading MD: Sade Ocasio Measurements Intervals [place] Rate: 97 P: MS: 0 QRS: -66 QRSD: 83 T: 71 QT: 289 QTc: 343 Interpretive Statements SINUS RHYTHM MARKED LEFT AXIS DEVIATION [QRS AXIS < -30] PATTERN CONSISTENT WITH PULMONARY DISEASE NONSPECIFIC T-WAVE ABNORMALITY Electronically Signed On 11-15-2016 16:32:57 EDT by Sade Ocasio
[2016-11-15] MEDS: Cefepime HCl 2,000 MG in D5% in Water (Mini-Bag+) 100 ML IVPB SCH (17:33)
[2016-11-15] MEDS: Perphenazine 2 MG TABLET PO SCH (20:33)
[2016-11-16 03:39] LABS: Basophils % 0.2 %; Eosinophils # 0.1 K/mcL (0.0-0.6); Eosinophils % 0.6 %; Hematocrit 34.6 % (37.5-50.1); Immature Granulocytes % 1.5 % (0-4); Immature Platelets 3.9 % (1.1-6.1); Lymphocytes % 7.8 %; Mean Corpuscular HGB Conc 34.7 g/dL (31.6-35.5); Mean Corpuscular Hemoglobin 29.6 pg (28.0-33.3); Mean Corpuscular Volume 85.2 fL (83.0-100.0); Mean Platelet Volume 9.7 fL (9.4-12.4); Monocytes # 0.7 K/mcL (0.0-1.3); Monocytes % 5.1 %; Neutrophils # 10.8 K/mcL (1.6-8.9); Platelet Count 155 K/mcL (140-400); Red Blood Count 4.06 M/mcL (4.19-5.50); Red Cell Distribution Width 13.3 % (11.5-14.5); Segmented Neutrophils % 84.8 %
[2016-11-16 03:51] LABS: Potassium 4.2 mEq/L (3.5-4.5)
[2016-11-16] MEDS: Ipratropium/Albuterol Neb 3 ML IH SCH ×6 (03:58→23:18)
[2016-11-16] MEDS: Cefepime HCl 2,000 MG in D5% in Water (Mini-Bag+) 100 ML IVPB SCH (06:04)
[2016-11-16] MEDS: *HR* Heparin 5,000 UNIT/ML VIAL SQ SCH ×3 (06:04→21:37)
[2016-11-16] MEDS: Beclomethasone 40mcg MDI IH SCH ×2 (07:51→19:38)
[2016-11-16] MEDS: Insulin LISPRO 300 UNITS/3 ML VIAL SQ SCH ×4 (09:11→21:37)
[2016-11-16] MEDS: amLODIPine 5 MG TABLET PO SCH (09:11)
[2016-11-16] MEDS: Cholecalciferol (D-3) 1,000 UNIT TABLET PO SCH (09:12)
[2016-11-16] MEDS: Folic Acid 1 MG TABLET PO SCH (09:12)
[2016-11-16] MEDS: Loratadine 10 MG TABLET PO SCH (09:12)
[2016-11-16] MEDS: Cyanocobalamin (B-12) 1,000 MCG TABLET PO SCH (09:12)
[2016-11-16] MEDS: Multivit/Ca/Min/Fe/FA 1 TAB TABLET PO SCH (09:12)
[2016-11-16] MEDS: Piperacillin/Tazobactam 3.375 GM in D5% in Water (Mini-Bag+) 100 ML IVPB SCH ×3 (09:13→23:30)
--- NOTE | 2016-11-16 10:27 | Internal Med Progress Note ---
Date of Encounter: 11/16/16 Time of Encounter: 10:24 - Assessment and plan (1) Pseudomonal septic shock Current Visit: Yes Status: Acute Assessment and plan: . Zosyn will be continued. We will add Levaquin. Cefepime will be discontinued. We will continue to monitor for fevers or leukocytosis and overall clinical improvement. Patient's are renally dosed Obtain a pro-calcitonin which may be beneficial if it is negative, would be helpful to discontinue antibiotic treatment (2) KASANDRA (acute kidney injury) Current Visit: Yes Status: Acute Assessment and plan: Most likely related to sepsis and medications. Currently he is hemodynamically stable and we will renally dose medications. Continue to hold losartan. (3) CAP (community acquired pneumonia) Current Visit: Yes Status: Acute Assessment and plan: Repeat chest x-ray was done today. There was no definite focal pneumonia identified. Some opacity was present in the left lung base thought to be due to atelectasis, but a small pneumonia would be possible as well. Qualifiers: Laterality: unspecified laterality Qualified Code(s): J18.9 - Pneumonia, unspecified organism (4) Urinary tract infection Current Visit: Yes Status: Acute Assessment and plan: Secondary to pseudomonas. Continue Zosyn and Levaquin Qualifiers: Urinary tract infection type: acute cystitis Hematuria presence: with hematuria Qualified Code(s): N30.01 - Acute cystitis with hematuria (5) Diabetes mellitus Current Visit: No Status: Acute Assessment and plan: Diabetic diet. Goal serum glucose of 140-180. Qualifiers: Diabetes mellitus type: type 2 Diabetes mellitus complication status: without complication Diabetes mellitus assisted insulin use: without assisted use Qualified Code(s): E11.9 - Type 2 diabetes mellitus without complications (6) DVT prophylaxis Current Visit: No Status: Acute (7) Hypokalemia Current Visit: Yes Status: Acute (8) Hypomagnesemia Current Visit: Yes Status: Acute - Subjective Interval history: History is limited as patient has baseline dementia, overnight history cannot be obtained. He denies any sort of pain shortness of breath nausea vomiting. States he has a good appetite. Mental status is improved - Constitutional Vitals: Temp Pulse Resp BP Pulse Ox 98.2 F 66 26 147/68 93 11/16/16 07:11 11/16/16 07:11 11/16/16 07:53 11/16/16 07:11 11/16/16 07:53 Exam: Exam: Pleasantly confused, responds to name, appears to be in NAD - Head Head exam: Present: atraumatic, normal inspection, normocephalic - Eye Eye exam: Present: EOMI, conjuntiva pink - ENT ENT exam: Present: mucous membranes moist - Expanded ENT Exam Throat exam: Present: post pharyngeal erythema - Neck Neck exam general surgery: Present: normal inspection, supple. Absent: tenderness - Respiratory Respiratory exam: Present: Fair Air exchange is improved since yesterday's exam, . Absent: accessory muscle use, respiratory distress, wheezes, tachypnea - Cardiovascular Cardiovascular exam: Present: RRR, +S1, +S2 - GI/Abdominal GI/Abdominal exam: Present: normal bowel sounds, soft. Absent: distended, guarding, tenderness - Extremities Exam Extremities exam: Present: normal capillary refill, warm. Absent: pedal edema, tenderness - Back Exam Back exam: Present: normal inspection. Absent: tenderness - Neurological Exam Neurological exam: Present: altered. Absent: motor sensory deficit, facial droop, speech deficit - Psychiatric Psychiatric exam: Absent: agitated, anxious - Skin Skin exam: Present: dry, normal color, warm Internal Medicine: Result - Labs CBC & Chem 7: 11/16/16 03:21 11/16/16 03:21 Labs: Short CBC 11/16/16 Range/Units 03:21 WBC 12.7 H (4.3-11.1) K/mcL Hgb 12.0 L (12.9-16.9) g/dL Hct 34.6 L (37.5-50.1) % Plt Count 155 (140-400) K/mcL Neutrophils # 10.8 H (1.6-8.9) K/mcL BMP 11/16/16 03:21 Sodium 137 Potassium 4.2 Chloride 106 Carbon Dioxide 25 BUN 19 Creatinine 1.36 H Glucose 115 H Calcium 9.0 - ABG Interpretation ABG results: PT/INR, D-dimer PT 11.8 Seconds (9.4-12.1) 11/14/16 01:07 - Impressions Impressions Chest X-Ray 11/16/16 07:00 IMPRESSION: [id number] pulmonary vascular congestion. Mild left basilar opacity thought to be due to atelectasis although pneumonia is possible. Tiny left pleural effusion. Moderate emphysematous changes. D/ / Jair Atwood MD / Jair Atwood MD Interpreting Provider: Jair Atwood MD Consult Discharge Plan - Plan Referrals: Jagdeep Howe DO [Primary Care Provider] - (web request 11/14/2016)
[2016-11-16] MEDS ORDERED: Levofloxacin 750 MG/150 ML 750 MG/150 ML BAG IVPB SCH (13:00)
[2016-11-16] MEDS: Perphenazine 2 MG TABLET PO SCH (21:37)
[2016-11-16] MEDS: *HR* LORazepam 2 MG/ML VIAL IVP PRN (23:30)
[2016-11-17] MEDS: Ipratropium/Albuterol Neb 3 ML IH SCH ×6 (03:38→23:01)
[2016-11-17] MEDS: *HR* Heparin 5,000 UNIT/ML VIAL SQ SCH ×3 (06:11→21:36)
[2016-11-17 07:07] LABS: Basophils % 0.4 %; Eosinophils # 0.3 K/mcL (0.0-0.6); Eosinophils % 3.8 %; Hematocrit 35.4 % (37.5-50.1); Hemoglobin 12.4 g/dL (12.9-16.9); Lymphocytes # 0.8 K/mcL (0.6-4.6); Lymphocytes % 11.3 %; Mean Corpuscular Hemoglobin 30.1 pg (28.0-33.3); Mean Corpuscular Volume 85.9 fL (83.0-100.0); Mean Platelet Volume 10.1 fL (9.4-12.4); Monocytes # 0.5 K/mcL (0.0-1.3); Monocytes % 7.5 %; Neutrophils # 5.3 K/mcL (1.6-8.9); Platelet Count 144 K/mcL (140-400); Red Blood Count 4.12 M/mcL (4.19-5.50); Red Cell Distribution Width 13.2 % (11.5-14.5)
[2016-11-17] MEDS: Beclomethasone 40mcg MDI IH SCH ×2 (07:33→19:31)
[2016-11-17 07:35] LABS: BUN/Creatinine Ratio 16 (6-26); Blood Urea Nitrogen 20 mg/dL (8-26); Calcium 9.2 mg/dL (8.6-10.8); Carbon Dioxide 27 mEq/L (19-29); Chloride 106 mEq/L (98-109); Glucose 136 mg/dL (70-99); Osmolality,Calculated 297 (280-300); Sodium 141 mEq/L (136-145); eGFR For African Americans > 60 (> 60); eGFR For Non-African Americans 54 (> 60)
[2016-11-17] MEDS: Cyanocobalamin (B-12) 1,000 MCG TABLET PO SCH (09:07)
[2016-11-17] MEDS: Loratadine 10 MG TABLET PO SCH (09:07)
[2016-11-17] MEDS: Folic Acid 1 MG TABLET PO SCH (09:07)
[2016-11-17] MEDS: Cholecalciferol (D-3) 1,000 UNIT TABLET PO SCH (09:07)
[2016-11-17] MEDS: Multivit/Ca/Min/Fe/FA 1 TAB TABLET PO SCH (09:07)
[2016-11-17] MEDS: amLODIPine 5 MG TABLET PO SCH (09:07)
[2016-11-17] MEDS: Piperacillin/Tazobactam 3.375 GM in D5% in Water (Mini-Bag+) 100 ML IVPB SCH ×2 (09:07→16:30)
[2016-11-17] MEDS: Insulin LISPRO 300 UNITS/3 ML VIAL SQ SCH ×4 (09:08→21:37)
--- NOTE | 2016-11-17 15:25 | Discharge Summary ---
Date of Encounter: 11/17/16 Time of Encounter: 15:23 - Discharge Diagnosis (1) Pseudomonal septic shock Priority: Primary Status: Resolved (2) KASANDRA (acute kidney injury) Priority: Secondary Status: Resolved (3) CAP (community acquired pneumonia) Priority: Secondary Status: Resolved Qualifiers: Laterality: unspecified laterality Qualified Code(s): J18.9 - Pneumonia, unspecified organism (4) Urinary tract infection Priority: Secondary Status: Resolved Qualifiers: Urinary tract infection type: acute cystitis Hematuria presence: with hematuria Qualified Code(s): N30.01 - Acute cystitis with hematuria (5) Diabetes mellitus Priority: Secondary Status: Resolved Qualifiers: Diabetes mellitus type: type 2 Diabetes mellitus complication status: without complication Diabetes mellitus jail insulin use: without termite 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 Qualified Code(s): E11.9 - Type 2 diabetes mellitus without complications - Discharge Medications Home Medications: Albuterol Sulfate [Ventolin Hfa] 2 puff IH Q4H PRN 02/20/16 [History] Beclomethasone Diprop 40mcg [QVAR 40 mcg] 1 puff IH BID 02/20/16 [History] Calcium Carbonate/Vitamin D3 [Calcium 600 + Vit D Tablet] 1 tab PO DAILY [History] Cholecalciferol (D-3) [Vitamin D] 5,000 unit PO DAILY 02/20/16 [History] Cyanocobalamin (Vitamin B-12) [Vitamin B12] 5,000 mcg PO BID 02/20/16 [History] Donepezil HCl 23 mg PO HS 02/20/16 [History] Fluticasone Propionate Nasal [Flonase] 1 - 2 spray NS DAILY PRN 02/20/16 [ History] Glimepiride [Amaryl] 1 mg PO QPM 02/20/16 [History] Glimepiride [Amaryl] 2 mg PO QAM 02/20/16 [History] Loratadine [Allergy Relief] 10 mg PO DAILY 02/20/16 [History] Losartan [Cozaar] 25 mg PO DAILY 02/20/16 [History] Memantine [Namenda] 10 mg PO DAILY 02/20/16 [History] Multivitamin [One Daily Essential] 1 tab PO DAILY 02/20/16 [History] Pantoprazole Sodium [Protonix] 40 mg PO DAILY 02/20/16 [History] Perphenazine 6 mg PO HS 02/20/16 [History] Saline Nasal [place] [[place] Nasal [place]] 1 - 2 ml NS Q4-6H PRN 02/20/16 [History] Sertraline [Zoloft] 50 mg PO DAILY 02/20/16 [History] amLODIPine [Norvasc] 5 mg PO DAILY 02/20/16 [History] Folic Acid 1 mg PO DAILY #30 tablet 02/24/16 [Rx] Allergies/Adverse Reactions: 3 Allergy/AdvReac Type Severity Reaction Status Date / Time No Known Allergies Allergy Verified 08/17/15 10:29 Date of admission: 11/14/16 04:50 Primary care physician: Jagdeep Howe DO Consults: 11/14/16 09:50 Consult to Occupational Therapy [CONS] Routine Comment: Evaluate, develop and implement POC Reason for Consult: eval for ecf Consult to Physical Therapy [CONS] Routine Comment: Evaluate, develop and implement POC Reason for Consult: eval for ecf Discharging clinician: Sera Reece - Patient Status Condition: Critical - Discharge Instructions Follow Up With: Jagdeep Howe DO [Primary Care Provider] - (web request 11/14/2016) Hospital course: Mr. Carbajal is a 86 year old male - Time Spent with Patient Total time spent providing and/or coordinating discharge services: - Constitutional Vitals: Temp Pulse Resp BP Pulse Ox 97.3 F L 65 18 142/69 93 11/17/16 11:22 11/17/16 11:22 11/17/16 11:34 11/17/16 11:22 11/17/16 11:34 General appearance: Present: A&O X 1, no acute distress
--- NOTE | 2016-11-17 18:27 | Internal Med Progress Note ---
Date of Encounter: 11/17/16 Time of Encounter: 08:00 - Assessment and plan (1) Pseudomonal septic shock Current Visit: Yes Status: Resolved Assessment and plan: Doing well. Repeat blood cultures today. If cultures are negative 24 hours after they are obtained, He can be discharged to [facility] to complete 14 days total of Zosyn. (2) KASANDRA (acute kidney injury) Current Visit: Yes Status: Resolved (3) CAP (community acquired pneumonia) Current Visit: Yes Status: Resolved Qualifiers: Laterality: unspecified laterality Qualified Code(s): J18.9 - Pneumonia, unspecified organism (4) Urinary tract infection Current Visit: Yes Status: Resolved Qualifiers: Urinary tract infection type: acute cystitis Hematuria presence: with hematuria Qualified Code(s): N30.01 - Acute cystitis with hematuria (5) Diabetes mellitus Current Visit: No Status: Resolved Qualifiers: Diabetes mellitus type: type 2 Diabetes mellitus complication status: without complication Diabetes mellitus shelter 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 - Constitutional Vitals: Temp Pulse Resp BP Pulse Ox 99.3 F 74 17 146/74 93 11/17/16 16:39 11/17/16 16:39 11/17/16 16:39 11/17/16 16:39 11/17/16 16:39 General appearance: Present: A&O X 1, no acute distress Exam: CVS: RRR Lungs: CTAB Ext: no edema, no cyanosis Internal Medicine: Result - Labs CBC & Chem 7: 11/17/16 06:51 11/17/16 06:51 Labs: Short CBC 11/17/16 Range/Units 06:51 WBC 6.9 (4.3-11.1) K/mcL Hgb 12.4 L (12.9-16.9) g/dL Hct 35.4 L (37.5-50.1) % Plt Count 144 (140-400) K/mcL Neutrophils # 5.3 (1.6-8.9) K/mcL BMP 11/17/16 06:51 Sodium 141 Potassium 4.0 Chloride 106 Carbon Dioxide 27 BUN 20 Creatinine 1.26 H Glucose 136 H Calcium 9.2 - ABG Interpretation ABG results: PT/INR, D-dimer PT 11.8 Seconds (9.4-12.1) 11/14/16 01:07 Consult Discharge Plan - Plan Referrals: Jagdeep Howe DO [Primary Care Provider] - (web request 11/14/2016)
[2016-11-17] MEDS: Perphenazine 2 MG TABLET PO SCH (21:36)
[2016-11-18] MEDS: Piperacillin/Tazobactam 3.375 GM in D5% in Water (Mini-Bag+) 100 ML IVPB SCH ×3 (00:01→17:02)
[2016-11-18] MEDS: Ipratropium/Albuterol Neb 3 ML IH SCH ×6 (03:52→23:48)
[2016-11-18 04:49] LABS: Basophils % 0.5 %; Eosinophils # 0.2 K/mcL (0.0-0.6); Eosinophils % 2.4 %; Hematocrit 36.4 % (37.5-50.1); Hemoglobin 12.5 g/dL (12.9-16.9); Immature Granulocytes % 0.8 % (0-4); Lymphocytes # 1.1 K/mcL (0.6-4.6); Mean Corpuscular HGB Conc 34.3 g/dL (31.6-35.5); Mean Corpuscular Hemoglobin 29.7 pg (28.0-33.3); Mean Corpuscular Volume 86.5 fL (83.0-100.0); Monocytes # 0.6 K/mcL (0.0-1.3); Monocytes % 9.8 %; Neutrophils # 4.6 K/mcL (1.6-8.9); Platelet Count 179 K/mcL (140-400); Red Blood Count 4.21 M/mcL (4.19-5.50); Segmented Neutrophils % 69.5 %
[2016-11-18 04:59] LABS: BUN/Creatinine Ratio 15 (6-26); Blood Urea Nitrogen 17 mg/dL (8-26); Calcium 9.2 mg/dL (8.6-10.8); Carbon Dioxide 27 mEq/L (19-29); Chloride 104 mEq/L (98-109); Glucose 136 mg/dL (70-99); Osmolality,Calculated 290 (280-300); Potassium 4.1 mEq/L (3.5-4.5); Sodium 138 mEq/L (136-145); eGFR For African Americans > 60 (> 60); eGFR For Non-African Americans 59 (> 60)
[2016-11-18] MEDS: *HR* Heparin 5,000 UNIT/ML VIAL SQ SCH ×3 (05:52→21:41)
[2016-11-18] MEDS: Cyanocobalamin (B-12) 1,000 MCG TABLET PO SCH (07:49)
[2016-11-18] MEDS: Multivit/Ca/Min/Fe/FA 1 TAB TABLET PO SCH (07:49)
[2016-11-18] MEDS: Cholecalciferol (D-3) 1,000 UNIT TABLET PO SCH (07:49)
[2016-11-18] MEDS: Loratadine 10 MG TABLET PO SCH (07:49)
[2016-11-18] MEDS: amLODIPine 5 MG TABLET PO SCH (07:49)
[2016-11-18] MEDS: Folic Acid 1 MG TABLET PO SCH (07:50)
[2016-11-18] MEDS: Insulin LISPRO 300 UNITS/3 ML VIAL SQ SCH ×4 (07:50→21:42)
[2016-11-18] MEDS: Beclomethasone 40mcg MDI IH SCH ×2 (08:16→19:56)
--- NOTE | 2016-11-18 18:10 | Internal Med Progress Note ---
Date of Encounter: 11/18/16 Time of Encounter: 09:00 - Assessment and plan (1) Pseudomonal septic shock Current Visit: Yes Status: Resolved Assessment and plan: Blood cultures obtained: If negative for 24 hours he can be discharged to ECF to complete 14 days total of Zosyn. (2) KASANDRA (acute kidney injury) Current Visit: Yes Status: Resolved Assessment and plan: Most likely related to sepsis and medications. Currently he is hemodynamically stable and we will renally dose medications. Continue to hold losartan. (3) CAP (community acquired pneumonia) Current Visit: Yes Status: Resolved Assessment and plan: Repeat chest x-ray was done today. There was no definite focal pneumonia identified. Some opacity was present in the left lung base thought to be due to atelectasis, but a small pneumonia would be possible as well. Qualifiers: Laterality: unspecified laterality Qualified Code(s): J18.9 - Pneumonia, unspecified organism (4) Urinary tract infection Current Visit: Yes Status: Resolved Assessment and plan: Secondary to pseudomonas. Continue Zosyn and Levaquin Qualifiers: Urinary tract infection type: acute cystitis Hematuria presence: with hematuria Qualified Code(s): N30.01 - Acute cystitis with hematuria (5) Diabetes mellitus Current Visit: No Status: Chronic Assessment and plan: Diabetic diet. Goal serum glucose of 140-180. Qualifiers: Diabetes mellitus type: type 2 Diabetes mellitus complication status: without complication Diabetes mellitus assurance senior insulin use: without alf use Qualified Code(s): E11.9 - Type 2 diabetes mellitus without complications - Subjective Interval history: History is limited as patient has baseline dementia, NO acute issues. He denies any fevers/chills, SOB, CP, N/V. - Constitutional Vitals: Temp Pulse Resp BP Pulse Ox 98 F 65 24 132/68 97 11/18/16 15:14 11/18/16 15:14 11/18/16 15:29 11/18/16 15:14 11/18/16 15:29 General appearance: Present: A&O X 1, no acute distress - Head Head exam: Present: atraumatic, normocephalic - Respiratory Respiratory exam: Present: CTAB. Absent: accessory muscle use, rales, rhonchi, wheezes - Cardiovascular Cardiovascular exam: Present: RRR, +S1, +S2. Absent: diastolic murmur, gallop, rubs, systolic murmur - GI/Abdominal GI/Abdominal exam: Present: normal bowel sounds, soft, no peritoneal signs. Absent: distended, tenderness - Extremities Exam Extremities exam: Present: warm, radial pulses palpable and symmetrical. Absent : calf tenderness, cyanotic, pedal edema Internal Medicine: Result - Labs CBC & Chem 7: 11/18/16 04:06 11/18/16 04:06 Labs: Short CBC 11/18/16 Range/Units 04:06 WBC 6.5 (4.3-11.1) K/mcL Hgb 12.5 L (12.9-16.9) g/dL Hct 36.4 L (37.5-50.1) % Plt Count 179 (140-400) K/mcL Neutrophils # 4.6 (1.6-8.9) K/mcL BMP 11/18/16 04:06 Sodium 138 Potassium 4.1 Chloride 104 Carbon Dioxide 27 BUN 17 Creatinine 1.17 Glucose 136 H Calcium 9.2 - ABG Interpretation ABG results: PT/INR, D-dimer PT 11.8 Seconds (9.4-12.1) 11/14/16 01:07 Consult Discharge Plan - Plan Referrals: Jagdeep Howe DO [Primary Care Provider] - (web request 11/14/2016)
[2016-11-18] MEDS: Perphenazine 2 MG TABLET PO SCH (21:41)
[2016-11-19] MEDS: Piperacillin/Tazobactam 3.375 GM in D5% in Water (Mini-Bag+) 100 ML IVPB SCH ×3 (00:10→16:50)
[2016-11-19] MEDS: Ipratropium/Albuterol Neb 3 ML IH SCH ×6 (04:06→22:58)
[2016-11-19] MEDS: *HR* Heparin 5,000 UNIT/ML VIAL SQ SCH ×2 (05:34→15:47)
[2016-11-19 06:52] LABS: Basophils # 0.1 K/mcL (0.0-0.2); Basophils % 0.7 %; Eosinophils # 0.3 K/mcL (0.0-0.6); Eosinophils % 4.5 %; Hemoglobin 12.9 g/dL (12.9-16.9); Immature Granulocytes % 1.1 % (0-4); Lymphocytes % 13.8 %; Mean Corpuscular HGB Conc 33.9 g/dL (31.6-35.5); Mean Corpuscular Hemoglobin 29.5 pg (28.0-33.3); Mean Platelet Volume 9.7 fL (9.4-12.4); Monocytes # 0.8 K/mcL (0.0-1.3); Platelet Count 199 K/mcL (140-400); Red Blood Count 4.37 M/mcL (4.19-5.50); Red Cell Distribution Width 12.9 % (11.5-14.5); Segmented Neutrophils % 68.9 %
[2016-11-19 07:03] LABS: BUN/Creatinine Ratio 17 (6-26); Blood Urea Nitrogen 19 mg/dL (8-26); Calcium 9.4 mg/dL (8.6-10.8); Carbon Dioxide 27 mEq/L (19-29); Chloride 105 mEq/L (98-109); Glucose 140 mg/dL (70-99); Osmolality,Calculated 293 (280-300); Potassium 4.2 mEq/L (3.5-4.5); Sodium 139 mEq/L (136-145); eGFR For African Americans > 60 (> 60); eGFR For Non-African Americans > 60 (> 60)
[2016-11-19] MEDS: Beclomethasone 40mcg MDI IH SCH ×2 (07:39→21:07)
[2016-11-19] MEDS: Insulin LISPRO 300 UNITS/3 ML VIAL SQ SCH ×3 (08:39→16:53)
[2016-11-19] MEDS: Multivit/Ca/Min/Fe/FA 1 TAB TABLET PO SCH (08:50)
[2016-11-19] MEDS: Loratadine 10 MG TABLET PO SCH (08:50)
[2016-11-19] MEDS: amLODIPine 5 MG TABLET PO SCH (08:50)
[2016-11-19] MEDS: Cholecalciferol (D-3) 1,000 UNIT TABLET PO SCH (08:50)
[2016-11-19] MEDS: Cyanocobalamin (B-12) 1,000 MCG TABLET PO SCH (08:50)
[2016-11-19] MEDS: Folic Acid 1 MG TABLET PO SCH (08:51)
--- NOTE | 2016-11-19 09:28 | Discharge Summary ---
Date of Encounter: 11/19/16 Time of Encounter: 09:27 - Discharge Diagnosis (1) Pseudomonal septic shock Priority: Primary Status: Resolved (2) CAP (community acquired pneumonia) Priority: Secondary Status: Resolved Qualifiers: Laterality: unspecified laterality Qualified Code(s): J18.9 - Pneumonia, unspecified organism (3) KASANDRA (acute kidney injury) Priority: Secondary Status: Resolved (4) Urinary tract infection Priority: Secondary Status: Resolved Qualifiers: Urinary tract infection type: acute cystitis Hematuria presence: with hematuria Qualified Code(s): N30.01 - Acute cystitis with hematuria (5) Diabetes mellitus Priority: Secondary Status: Chronic Qualifiers: Diabetes mellitus type: type 2 Diabetes mellitus complication status: without complication Diabetes mellitus halfway insulin use: without intermediate project manager use Qualified Code(s): E11.9 - Type 2 diabetes mellitus without complications - Discharge Medications Home Medications: Albuterol Sulfate [Ventolin Hfa] 2 puff IH Q4H PRN 02/20/16 [History] Beclomethasone Diprop 40mcg [QVAR 40 mcg] 1 puff IH BID 02/20/16 [History] Calcium Carbonate/Vitamin D3 [Calcium 600 + Vit D Tablet] 1 tab PO DAILY [History] Cholecalciferol (D-3) [Vitamin D] 5,000 unit PO DAILY 02/20/16 [History] Cyanocobalamin (Vitamin B-12) [Vitamin B12] 5,000 mcg PO BID 02/20/16 [History] Donepezil HCl 23 mg PO HS 02/20/16 [History] Fluticasone Propionate Nasal [Flonase] 1 - 2 spray NS DAILY PRN 02/20/16 [ History] Glimepiride [Amaryl] 1 mg PO QPM 02/20/16 [History] Glimepiride [Amaryl] 2 mg PO QAM 02/20/16 [History] Loratadine [Allergy Relief] 10 mg PO DAILY 02/20/16 [History] Losartan [Cozaar] 25 mg PO DAILY 02/20/16 [History] Memantine [Namenda] 10 mg PO DAILY 02/20/16 [History] Multivitamin [One Daily Essential] 1 tab PO DAILY 02/20/16 [History] Pantoprazole Sodium [Protonix] 40 mg PO DAILY 02/20/16 [History] Perphenazine 6 mg PO HS 02/20/16 [History] Saline Nasal [place] [[place] Nasal [place]] 1 - 2 ml NS Q4-6H PRN 02/20/16 [History] Sertraline [Zoloft] 50 mg PO DAILY 02/20/16 [History] amLODIPine [Norvasc] 5 mg PO DAILY 02/20/16 [History] Folic Acid 1 mg PO DAILY #30 tablet 02/24/16 [Rx] Allergies/Adverse Reactions: 3 Allergy/AdvReac Type Severity Reaction Status Date / Time No Known Allergies Allergy Verified 08/17/15 10:29 Date of admission: 11/14/16 04:50 Primary care physician: Jagdeep Howe DO Consults: 11/14/16 09:50 Consult to Occupational Therapy [CONS] Routine Comment: Evaluate, develop and implement POC Reason for Consult: eval for ecf Consult to Physical Therapy [CONS] Routine Comment: Evaluate, develop and implement POC Reason for Consult: eval for ecf Discharging clinician: Sera Reece - Patient Status Disposition: Transfer SNF Condition: Critical - Discharge Instructions Follow Up With: Jagdeep Howe DO [Primary Care Provider] - (web request 11/14/2016) - Diet and Activity Activity: as per physical therapy Diet: diabetic diet Interval History: Mr. Carbajal is a 86 year old male with a PMH of Alzheimer's dementia, DM, hypertension, hyperlipidemia, and osteoporosis that presented from home c/o not feeling well since yesterday evening. He has advanced dementia and is at bedside. She reports patient had a fever 102F, chills, sinus congestion, non- productive cough, and low blood pressure 74/44 at home. His BP was elevated once EMS arrived. denies patient c/o CP, SOB, abd pain, N/V/D/C, leg edema , or recent sick contacts. Patient quit smoking 16 years ago and see Dr. Urbina for outpatient monitoring of pulmonary nodules. In the ED, labs revealed UTI, lactic acid 5.6, leukocytosis, and pulmonary nodules on CT chest. Hospital course: He was admitted for sepsis and had 3 sisters criteria for temperature of 102.1, WBCs 13.3, heart rate 106. Patient had respiratory like symptoms including cough and pneumonia was suspected. Urine analysis was consistent with UTI. His bolus with IV fluid started on Rocephin and azithromycin initially. Urine cultures and blood cultures both resulted positive for Pseudomonas, after sensitivities came back he was placed on Zosyn. Acute kidney injury resolved. Wound cultures were repeated after 48 hours of positive cultures and starting Zosyn. 24 hours later there were no growth to date. Patient remained hemodynamically stable and afebrile. He was discharged to ECF to continue 11 more days of IV to complete a total course of 14 days of renally dosed Zosyn treatment. - Time Spent with Patient Total time spent providing and/or coordinating discharge services: - Constitutional Vitals: Temp Pulse Resp BP Pulse Ox 98.3 F 73 16 145/69 93 11/19/16 07:25 11/19/16 07:25 11/19/16 07:41 11/19/16 07:25 11/19/16 07:41 General appearance: Present: A&O X 1, no acute distress - Eye Eye exam: Present: PERRL, conjuntiva pink, sclera anicteric Pupils: Present: PERRL - Respiratory Respiratory exam: Present: CTAB. Absent: accessory muscle use, rales, rhonchi, wheezes - Extremities Exam Extremities exam: Present: warm, radial pulses palpable and symmetrical. Absent : calf tenderness, cyanotic, pedal edema
--- NOTE | 2016-11-19 11:08 | Physician Discharge Referral ---
ExtendedCare Referral Info Transfer To: ECF Provider in Charge after Transfer: PCP Institutional Level of Care: Skilled - Diagnosis (1) Pseudomonal septic shock Priority: Primary Status: Resolved (2) CAP (community acquired pneumonia) Priority: Secondary Status: Resolved (3) KASANDRA (acute kidney injury) Priority: Secondary Status: Resolved (4) Urinary tract infection Priority: Secondary Status: Resolved (5) Diabetes mellitus Priority: Secondary Status: Chronic - Transfer Medications Home Medications: Albuterol Sulfate [Ventolin Hfa] 2 puff IH Q4H PRN 02/20/16 [History] Beclomethasone Diprop 40mcg [QVAR 40 mcg] 1 puff IH BID 02/20/16 [History] Calcium Carbonate/Vitamin D3 [Calcium 600 + Vit D Tablet] 1 tab PO DAILY [History] Cholecalciferol (D-3) [Vitamin D] 5,000 unit PO DAILY 02/20/16 [History] Cyanocobalamin (Vitamin B-12) [Vitamin B12] 5,000 mcg PO BID 02/20/16 [History] Donepezil HCl 23 mg PO HS 02/20/16 [History] Fluticasone Propionate Nasal [Flonase] 1 - 2 spray NS DAILY PRN 02/20/16 [ History] Glimepiride [Amaryl] 1 mg PO QPM 02/20/16 [History] Glimepiride [Amaryl] 2 mg PO QAM 02/20/16 [History] Loratadine [Allergy Relief] 10 mg PO DAILY 02/20/16 [History] Losartan [Cozaar] 25 mg PO DAILY 02/20/16 [History] Memantine [Namenda] 10 mg PO DAILY 02/20/16 [History] Multivitamin [One Daily Essential] 1 tab PO DAILY 02/20/16 [History] Pantoprazole Sodium [Protonix] 40 mg PO DAILY 02/20/16 [History] Perphenazine 6 mg PO HS 02/20/16 [History] Saline Nasal [place] [[place] Nasal [place]] 1 - 2 ml NS Q4-6H PRN 02/20/16 [History] Sertraline [Zoloft] 50 mg PO DAILY 02/20/16 [History] amLODIPine [Norvasc] 5 mg PO DAILY 02/20/16 [History] Folic Acid 1 mg PO DAILY #30 tablet 02/24/16 [Rx] Allergies/Adverse Reactions: 3 Allergy/AdvReac Type Severity Reaction Status Date / Time No Known Allergies Allergy Verified 08/17/15 10:29 - Respiratory Orders Smoking Cessation: Smoking cessation has been advised. For more information, call the [place] Tobacco Quit Line at 1-559-TJDS-NOW. - Rehabiliation Orders Rehab Potential: Fair - Treatments Skin tear care topically daily PRN per policy - Diet Orders No Concentrated Sweets CERTIFICATION: I certify that the transfer of the above named patient to an Extended Care Facility is necessary for the continuing treatment of the diagnosis listed. The above information is true and accurate reflection of patient's current condition. Confidential - Redisclosure prohibited without a patient's written consent.
[2016-11-19 16:33] VITALS: BP 129/69
== END 2016-11-19 21:50 | DRG 871 ==
LOC: EMEROO 21:27 → 2ANU 21:27 → SUATTDRO 11-14 04:50 → 2ANU 11-14 15:57
PROVIDERS: ADMIT Pediatrics; ATTEND Student in an Organized Health Care Education/Training Program

== ENCOUNTER 2017-01-17 16:41 | Observation (INO) ==
--- NOTE | 2017-01-17 16:47 | Emergency Department Note ---
Disposition Clinical Impression: Facial laceration Qualifiers: Encounter type: initial encounter Qualified Code(s): S01.81XA - Laceration without foreign body of other part of head, initial encounter Head injury Qualifiers: Encounter type: initial encounter Qualified Code(s): S09.90XA - Unspecified injury of head, initial encounter Right humeral fracture Qualifiers: Encounter type: initial encounter Humerus Location: proximal Fracture type: closed Fracture morphology: other fracture Fracture alignment: nondisplaced Qualified Code(s): S42.294A - Other nondisplaced fracture of upper end of right humerus, initial encounter for closed fracture Disposition: Admitted As Inpatient Condition: Fair Referrals: NONE,PCP [Primary Care Provider] - Forms: ED Satisfaction Letter Time of Disposition: 18:45 Fall HPI - General Chief Complaint: ED Fall Stated Complaint: fell Time Seen by Provider: 01/17/17 16:42 Source: patient, EMS Mode of arrival: EMS Limitations: age, other Nursing Notes Reviewed: Yes Vital Signs Reviewed: Yes (Alzheimer's) - History of Present Illness HPI Narrative: 86-year-old with a history of Alzheimer's disease who apparently walked out of the house and fell landing on his face in the street. There was no loss of consciousness. Patient has a history of hypertension. Patient is not on a blood thinner. Pt Subjective Complaint: fall Onset (ago): Just [employer] Fall From: standing Fall Witnessed: yes Place Fall Occurred: street Loss of Consciousness: none Prolonged Down Time?: no Symptoms Prior to Fall: none Context: tripped/slipped Location of injury: head, face, neck Location of injury - extremities: Right: shoulder Severity: moderate - Related Data Home Medications Medication Instructions Recorded Confirmed Albuterol Sulfate [Ventolin Hfa] 2 puff IH Q4H PRN 02/20/16 11/14/16 Beclomethasone Diprop 40mcg [QVAR 1 puff IH BID 02/20/16 11/14/16 40 mcg] Calcium Carbonate/Vitamin D3 1 tab PO DAILY 02/20/16 11/14/16 [Calcium 600 + Vit D Tablet] Cholecalciferol (D-3) [Vitamin D] 5,000 unit PO DAILY 02/20/16 11/14/16 Cyanocobalamin (Vitamin B-12) 5,000 mcg PO BID 02/20/16 11/14/16 [Vitamin B12] Donepezil HCl 23 mg PO HS 02/20/16 11/14/16 Fluticasone Propionate Nasal 1 - 2 spray NS DAILY PRN 02/20/16 11/14/16 [Flonase] Glimepiride [Amaryl] 1 mg PO QPM 02/20/16 11/14/16 Glimepiride [Amaryl] 2 mg PO QAM 02/20/16 11/14/16 Loratadine [Allergy Relief] 10 mg PO DAILY 02/20/16 11/14/16 Losartan [Cozaar] 25 mg PO DAILY 02/20/16 11/14/16 Memantine [Namenda] 10 mg PO DAILY 02/20/16 11/14/16 Multivitamin [One Daily Essential] 1 tab PO DAILY 02/20/16 11/14/16 Pantoprazole Sodium [Protonix] 40 mg PO DAILY 02/20/16 11/14/16 Perphenazine 6 mg PO HS 02/20/16 11/14/16 Saline Nasal [place] [[place] Nasal 1 - 2 ml NS Q4-6H PRN 02/20/16 11/14/16 [place]] Sertraline [Zoloft] 50 mg PO DAILY 02/20/16 11/14/16 amLODIPine [Norvasc] 5 mg PO DAILY 02/20/16 11/14/16 Previous Rx's Medication Instructions Recorded Folic Acid 1 mg PO DAILY #30 tablet 02/24/16 Allergies Allergy/AdvReac Type Severity Reaction Status Date / Time No Known Allergies Allergy Verified 08/17/15 10:29 Limitations: ROS unobtainable due to patients medical condition Fall [facility] - Past Medical History Medical history: Reports: DVT, dementia, diabetes, hyperlipidemia, hypertension , osteoporosis Surgical history: Reports: cholecystectomy, prostatectomy Psychiatric history: Reports: no psych history - Social History Smoking Status: Former smoker Alcohol use: Reports: none Drug use: Reports: none Physical Exam - General Limitations: other (Alzheimer's) - Head Head exam: other (2 cm laceration above the right eye no palpable bony abnormality) - ENT ENT exam: normal exam, normal oropharynx, mucous membranes moist - Neck Neck exam: Present: normal inspection, full ROM, trachea midline - Chest Chest inspection: Present: normal inspection, symmetric chest wall rise - Respiratory Respiratory exam: Present: normal lung sounds bilaterally - Cardiovascular Cardiovascular exam: Present: regular rate, normal rhythm, normal heart sounds - Abdominal Exam Abdominal exam: Present: soft, Non-Tender. Absent: tenderness, distention, guarding, rebound, rigidity - Extremities Exam Extremities exam: Present: normal inspection - Expanded Lower Extremity Exam Neurovascular/Tendon exam: Absent: motor deficit, sensory deficit, tendon deficit Gait: not tested/not observed - Back Exam Back exam: Present: normal inspection, full ROM. Absent: tenderness - Neurological Exam Neurological exam: Present: alert - Psychiatric Psychiatric exam: Present: normal affect, normal mood - Skin Skin exam: Present: warm, dry, intact, normal color Course - Reevaluation(s) Reevaluation #1: 86-year-old who fell onto his face. CT of the head neck and face were obtained and no acute fractures he does have a question of foreign body at the eyelid level. During the cleaning process some superficial foreign bodies were removed from the eyelid no further foreign bodies were seen. is here and does not feel that she can handle him tonight for safety the patient will be admitted. Time: 19:44 - Consultations Consultation #1: Discussed with Dr. Dotson, admit. Time: 19:46 Vital Signs Temperature 97.6 F 01/17/17 16:42 Pulse Rate 55 01/17/17 16:42 Respiratory Rate 22 01/17/17 16:42 Blood Pressure 171/90 01/17/17 16:42 O2 Sat by Pulse Oximetry 97 01/17/17 16:42 Temperature 97.6 F 01/17/17 16:42 Pulse Rate 55 01/17/17 16:42 Respiratory Rate 22 01/17/17 16:42 Blood Pressure 171/90 01/17/17 16:42 O2 Sat by Pulse Oximetry 97 01/17/17 16:42 Oxygen Delivery Oxygen Delivery Room Air Procedures - Laceration Laceration 1 Site: face Side (If applicable): left Size (cm): 3.0 Description: irregular Depth: simple, single layer Local Anesthetic: lidocaine 1% Amount of Anesthesia Used (mL): 6 (CT scan noted foreign body at the level of the eyelid. During the cleaning process debris was removed from his eyelid. The wound itself was irrigated foreign bodies were seen or detected.) Pre-repair: wound explored, irrigated extensively Skin layer closed with: nylon Size: 4-0 Number of sutures/chastity: 5 Technique: simple, interrupted Fall - Radiology Data Radiology results reviewed: Yes I reviewed the patient's radiology results. Cervical Spine CT 01/17/17 16:44 IMPRESSION: No acute abnormality of the cervical spine. D/ / Buzz Sin MD / Buzz Sin MD Interpreting Provider: Buzz Sin MD Face CT 01/17/17 16:44 IMPRESSION: No acute fracture identified within the facial bones. Right forehead and periorbital laceration. Punctate foreign bodies are identified at the level the eyelid. D/ / Subhash Mtz MD / Subhash Mtz MD Interpreting Provider: Subhash Mtz MD Head CT 01/17/17 16:44 IMPRESSION: No acute intracranial abnormality. D/ / Subhash Mtz MD / Subhash Mtz MD Interpreting Provider: Subhash Mtz MD Humerus X-Ray 01/17/17 16:44 IMPRESSION: Irregularity of the cortical bone at the humeral neck suspicious for nondisplaced fracture. D/ : / 01/17/2017 17:14:11 Santo Palencia MD / casey Interpreting Provider: Santo Palencia MD
[2017-01-17] MEDS ORDERED: Lidocaine -MPF 1% 2 ML VIAL INFILT ONE (18:12)
[2017-01-17] MEDS ORDERED: Tdap (Boostrix) Vaccine 0.5 ML SYRINGE IM ONE (18:14)
[2017-01-17 22:11] LABS: Basophils % 0.3 %; Eosinophils % 0.2 %; Hematocrit 39.8 % (37.5-50.1); Hemoglobin 13.8 g/dL (12.9-16.9); Immature Granulocytes % 0.3 % (0-4); Lymphocytes # 0.8 K/mcL (0.6-4.6); Lymphocytes % 6.7 %; Mean Corpuscular HGB Conc 34.7 g/dL (31.6-35.5); Mean Corpuscular Hemoglobin 29.5 pg (28.0-33.3); Monocytes # 0.7 K/mcL (0.0-1.3); Monocytes % 5.9 %; Neutrophils # 10.4 K/mcL (1.6-8.9); Platelet Count 177 K/mcL (140-400); Red Blood Count 4.68 M/mcL (4.19-5.50); Red Cell Distribution Width 13.5 % (11.5-14.5); Segmented Neutrophils % 86.6 %
[2017-01-17] MEDS ORDERED: Ondansetron 4 MG/2 ML VIAL IVP PRN (22:11)
[2017-01-17] MEDS ORDERED: Naloxone 0.4 MG/ML INJ IVP PRN (22:11)
[2017-01-17] MEDS ORDERED: Fluticasone Propionate Nasal 50 MCG/SPRAY BOTTLE NS PRN (22:19)
[2017-01-17] MEDS ORDERED: Dextrose Gel 15 GM PO PRN ×2 (22:22)
[2017-01-17] MEDS ORDERED: *HR* Dextrose 50 % in Water (Syg) 50 ML SYRINGE IVP PRN (22:22)
[2017-01-17] MEDS ORDERED: D5% in Water 1,000 ML IVC PRN (22:22)
[2017-01-17 22:27] LABS: Alanine Aminotransferase 18 Units/L (0-55); Albumin 3.5 g/dL (3.5-5.0); Alkaline Phosphatase 99 Units/L (38-126); Aspartate Amino Transferase 19 Units/L (5-34); BUN/Creatinine Ratio 8 (6-26); Blood Urea Nitrogen 8 mg/dL (8-26); Calcium 9.3 mg/dL (8.6-10.8); Carbon Dioxide 26 mEq/L (19-29); Chloride 107 mEq/L (98-109); Globulin 3.5 g/dL (2.4-3.5); Glucose 144 mg/dL (70-99); Osmolality,Calculated 293 (280-300); Sodium 141 mEq/L (136-145); eGFR For African Americans > 60 (> 60); eGFR For Non-African Americans > 60 (> 60)
--- NOTE | 2017-01-17 22:28 | Internal Med History&Physical ---
<Tigre Washington - Last Filed: 01/17/17 22:25> Date of Encounter: 01/17/17 Time of Encounter: 22:25 Assessment and Plan (1) Frequent falls Current visit: Yes Status: Chronic History of frequent falls. He has severe functional limitations and deficits to self-care. At baseline he is only able to feed himself, and needs total assistance with hygiene. Has history of Alzheimer's dementia. notes increasing confusions last couple of days leading up to today's fall. Patient may have some metabolic encephalopathy which could contribute to falls and increasing confusion PT/OT consult for evaluation of functional capacity director of managed services consult-may need possible temporary placement to Alzheimer's facility Urinalysis now to further assess suspected sources of metabolic encephalopathy Lactic acid stat, CBC stat, CMP stat Chest x-ray now Strict bedrest (2) Right humeral fracture Current visit: Yes Status: Acute Nondisplaced humeral neck fracture. The fracture likely will not need surgical repair Consult orthopedic surgeon-they will see the patient in the morning Continue pain management with hydrocodone and morphine Qualifiers: Encounter type: initial encounter Humerus Location: proximal Fracture type: closed Fracture morphology: other fracture Fracture alignment: nondisplaced Qualified Code(s): S42.294A - Other nondisplaced fracture of upper end of right humerus, initial encounter for closed fracture (3) Facial laceration Current visit: Yes Status: Acute Sutures intact, no bleeding noted. Pain management with hydrocodone 5/325 every 6 hours when necessary Morphine 1 mg IV push every 4 hours when necessary Qualifiers: Encounter type: initial encounter Qualified Code(s): S01.81XA - Laceration without foreign body of other part of head, initial encounter (4) Head injury Current visit: Yes Status: Acute CT of head negative for acute intracranial abnormalities, C-spine negative for acute abnormalities. Right periorbital facial laceration has been sutured and is well approximated without any bloody drainage. Qualifiers: Encounter type: initial encounter Qualified Code(s): S09.90XA - Unspecified injury of head, initial encounter (5) Alzheimer's dementia Current visit: Yes Status: Chronic reports increasing confusion over the last couple of days. He has become more difficult to manage. PT/OT consult to assess functional capacity director of managed services consult for possible temporary placement Alzheimer's facility Qualifiers: Alzheimer's disease onset: unspecified onset Dementia behavioral disturbance: without behavioral disturbance Qualified Code(s): G30.9 - Alzheimer's disease, unspecified; F02.80 - Dementia in other diseases classified elsewhere without behavioral disturbance (6) Hypertension Current visit: Yes Status: Chronic Stable. Continue [place] Qualifiers: Hypertension type: essential hypertension Qualified Code(s): I10 - Essential (primary) hypertension (7) Diabetes mellitus Current visit: Yes Status: Chronic History of diabetes, takes oral hypoglycemic agents at home. Stop oral hyperglycemic agents and start sliding scale insulin coverage every 6 hours with every 6 hours Accu-Cheks. Nothing by mouth for now, dysphagia screening start diet based on results of dysphasia screening. Target diet is diabetic Qualifiers: Diabetes mellitus type: type 2 Diabetes mellitus complication status: without complication Diabetes mellitus long-term insulin use: without long-term use Qualified Code(s): E11.9 - Type 2 diabetes mellitus without complications (8) DVT prophylaxis Current visit: Yes Status: Acute Continue epcd's for DVT prophylaxis Internal Medicine - H&P: HPI Chief complaint: Right humerus fracture, right periorbital facial laceration Admitted From: Home Plans for Post Hospital Care: Home History of present illness: Mr. Carbajal is a 86 year old male with PMH of Alzheimer's dementia. Presents to [facility] today with a right periorbital facial laceration and right humeral fracture after falling. Due to Alzheimer's dementia patient is unable to participate and review of systems per H&P. No family at bedside. All information obtained from chart review and RN. This reported that the patient's was in the shower and the patient managed to leave the house. He was found approximately one block away from his home on the ground. It appears he had fallen and struck his face resulting in a right periorbital facial laceration right humeral fracture. The patient is not on any blood tenderness. His reported that for the last few days he has been having increasing confusion, at his baseline he is confused due to Alzheimer's dementia. However, he is normally able to have minimal participation in self- care including able to feed himself. But he does need help with hygiene. Past Med Surg Social Fam HX - Past Medical History Medical history: DVT, dementia, diabetes, hyperlipidemia, hypertension, osteoporosis Psychiatric history: no psych history - Past Surgical History Surgical History: cholecystectomy, prostatectomy - Social History Smoking Status: Former smoker Smokeless Tobacco Status: No Alcohol use: none Drug use: none - Family History Mother Living Status: Hx Family Cardiac Disorders: No Hx Family Respiratory Disorders: Yes Hx Family Cancer: No Hx Family GI Disorders: No Hx Family Genitourinary Disorders: No Hx Family Endocrine Disorder: No Hx Family Musculoskeletal Disorders: No Hx Family Neuromuscular Disorders: No Hx Family Neurologic Disorders: No Hx Family HEENT Disorders: No Hx Family Autoimmune Disorders: No Hx Family Reproductive Disorders: No Hx Family Psychosocial Disorders: No Hx Family Medical Disorders: No Internal Medicine - H&P: Meds Albuterol Sulfate [Ventolin Hfa] 2 puff IH Q4H PRN 02/20/16 [History] Beclomethasone Diprop 40mcg [QVAR 40 mcg] 1 puff IH BID 02/20/16 [History] Calcium Carbonate/Vitamin D3 [Calcium 600 + Vit D Tablet] 1 tab PO DAILY [History] Cyanocobalamin (Vitamin B-12) [Vitamin B12] 5,000 mcg PO BID 02/20/16 [History] Donepezil HCl 23 mg PO HS 02/20/16 [History] Fluticasone Propionate Nasal [Flonase] 1 - 2 spray NS DAILY PRN 02/20/16 [ History] Glimepiride [Amaryl] 1 mg PO QPM 02/20/16 [History] Glimepiride [Amaryl] 2 mg PO QAM 02/20/16 [History] Loratadine [Allergy Relief] 10 mg PO DAILY 02/20/16 [History] Losartan [Cozaar] 25 mg PO DAILY 02/20/16 [History] Memantine [Namenda] 10 mg PO DAILY 02/20/16 [History] Multivitamin [One Daily Essential] 1 tab PO DAILY 02/20/16 [History] Pantoprazole Sodium [Protonix] 40 mg PO DAILY 02/20/16 [History] Perphenazine 6 mg PO HS 02/20/16 [History] Saline Nasal [place] [[place] Nasal [place]] 1 - 2 ml NS Q4-6H PRN 02/20/16 [History] Sertraline [Zoloft] 50 mg PO DAILY 02/20/16 [History] amLODIPine [Norvasc] 5 mg PO DAILY 02/20/16 [History] Folic Acid 1 mg PO DAILY #30 tablet 02/24/16 [Rx] 3 Allergy/AdvReac Type Severity Reaction Status Date / Time No Known Allergies Allergy Verified 08/17/15 10:29 ROS unobtainable: due to mental status All Systems PM: A 10-system review of systems was performed and is negative for pertinent findings except as documented above in the HPI. - Constitutional Vitals: Temp Pulse Resp BP Pulse Ox 98.1 F 67 19 145/75 95 01/17/17 21:20 01/17/17 21:20 01/17/17 21:20 01/17/17 21:20 01/17/17 21:20 General appearance: Present: A&O X 1, mild distress. Absent: answers questions appropriately - Head Additional comments: Right periorbital facial laceration; repaired with sutures, no bleeding noted, dressing C/D/I - Eye Eye exam: Present: EOMI - Respiratory Respiratory exam: Present: CTAB. Absent: accessory muscle use, rales, respiratory distress, rhonchi, wheezes, tachypnea - Cardiovascular Cardiovascular exam: Present: RRR, +S1, +S2. Absent: diastolic murmur, gallop, rubs, systolic murmur - GI/Abdominal GI/Abdominal exam: Present: normal bowel sounds, soft, no peritoneal signs. Absent: distended, tenderness - Extremities Exam Extremities exam: Present: normal capillary refill, warm, radial pulses palpable and symmetrical. Absent: calf tenderness, cyanotic, normal inspection , pedal edema - Expanded Upper Extremities Exam General: Present: laceration Upper Arm exam: Present: tenderness. Absent: deformity, dislocation, full ROM - Neurological Exam Neurological exam: Present: alert. Absent: facial droop, speech deficit Additional comments: Confused at baseline - Skin Skin exam: Present: dry. Absent: intact Additional comments: Right periorbital facial laceration Internal Med - H&P Results - Labs CBC & Chem 7: 01/17/17 21:57 Labs: Short CBC 01/17/17 Range/Units 21:57 WBC 12.0 H (4.3-11.1) K/mcL Hgb 13.8 (12.9-16.9) g/dL Hct 39.8 (37.5-50.1) % Plt Count 177 (140-400) K/mcL Neutrophils # 10.4 H (1.6-8.9) K/mcL - Diagnostic Studies Other Images Status: image reviewed by me Additional comments: CT of C-spine without acute abnormalities CT of face no acute fractures CT of head without acute intracranial abnormalities X-ray of right humerus reveals irregularity of cortical bone and humeral neck suspicious for nondisplaced fracture <TomiConstanza Cooper - Last Filed: 01/18/17 01:00> Date of Encounter: 01/18/17 Internal Medicine - H&P: HPI History of present illness: Mr. Carbajal is a 86 year old male All Systems PM: A 10-system review of systems was performed and is negative for pertinent findings except as documented above in the HPI. - Constitutional Vitals: Temp Pulse Resp BP Pulse Ox 97.4 F L 66 20 154/77 94 01/17/17 23:16 01/17/17 23:16 01/17/17 23:16 01/17/17 23:16 01/17/17 23:16 Internal Med - H&P Results - Labs CBC & Chem 7: 01/17/17 21:57 01/17/17 21:57 Labs: Short CBC 01/17/17 Range/Units 21:57 WBC 12.0 H (4.3-11.1) K/mcL Hgb 13.8 (12.9-16.9) g/dL Hct 39.8 (37.5-50.1) % Plt Count 177 (140-400) K/mcL Neutrophils # 10.4 H (1.6-8.9) K/mcL BMP 01/17/17 21:57 Sodium 141 Potassium 4.0 Chloride 107 Carbon Dioxide 26 BUN 8 Creatinine 0.96 Glucose 144 H Calcium 9.3 Liver Function 01/17/17 Range/Units 21:57 Total Bilirubin 1.0 (0.2-1.2) mg/dL AST 19 (5-34) Units/L ALT 18 (0-55) Units/L Alkaline Phosphatase 99 (38-126) Units/L Albumin 3.5 (3.5-5.0) g/dL Urine 01/17/17 Range/Units 23:00 Urine Color Yellow (Yellow) Urine Clarity Clear (Clear) Urine pH 8.0 (5.0-8.0) pH Units Ur Specific [place] 1.015 (1.010-1.025) Urine Protein Trace (Neg-Trace) mg/dL Urine Glucose (UA) Normal (Normal) mg/dL - Impressions ITS Impressions Chest X-Ray 01/17/17 22:33 IMPRESSION: No acute cardiopulmonary abnormality. D/ / Jermain Dumont / Jermain Dumont Interpreting Provider: Jermain Dumont - Attending Attestation I have personally performed a face to face evaluation on this patient. I have reviewed and agree with the care plan. History and Exam by me shows: 86 yo dementia male who presents after being found wandering away from home (he "escape from home") - found 1/[address] from house [address] with bodily trauma. Per , he is DNRCCA and is with hospice. Has Alzheimer for many years now and at baseline is able to feed and walk but is incapable of dressing/toileting needs. 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 Was found to be more confused in the last few days. ROS 14 point review of systems reviewed as best as possible given presentation. Pertinent positive or negative as per HPI or otherwise reviewed as negative General - Confused Psych - Confused but no agitation Eyes - right kayleigh-orbital hematoma Neuro - unable to assess due to mental state Heart - Sinus. RRR. S1 and S2 present. No added HS/murmurs appreciated. No elevated JVD appreciated. Lung - Adequate air entry b/l, bibasal crackles. No wheeze GI - Soft, non-tender. No hepatosplenomegaly/ascites. BS+ - No CVA/suprapubic tenderness or palpable bladder distension MSK - having pain on ROM of right arm XR/XR chest 1V portable IMPRESSION: No acute cardiopulmonary abnormality. XR/XR humerus RT IMPRESSION: Irregularity of the cortical bone at the humeral neck suspicious for nondisplaced fracture. CT/CT head/brain wo con IMPRESSION: No acute intracranial abnormality. CT/CT facial bones wo con IMPRESSION: No acute fracture identified within the facial bones. Right forehead and periorbital laceration. Punctate foreign bodies are identified at the level the eyelid. A/P Acute encephalopathy Moderate-severe dementia - CXR, UA appears clears. No apparent source of infection noted - PT/OT - may consider placement to dementia unit if family would consider ? - continue to monitor closely for an correctable cause of acute confusion - check AXR for constipation Fall - check EKG - not done in the ED - routine vitals - PT/OT Laceration of facial area Possible non-displace fracture of right humeral neck - ortho eval DMII HTN DNRCCA
[2017-01-17] MEDS: *HR* Morphine 2 MG/ML SYRINGE IVP PRN (22:42)
[2017-01-17] MEDS: (Donepezil Hcl [Donepezil Hcl] 23 MG) PO SCH (22:53)
[2017-01-17] MEDS: Perphenazine 2 MG TABLET PO SCH (23:12)
[2017-01-17 23:15] LABS: Bilirubin,Urine Negative (Negative); Blood,Urine Negative (Negative); Clarity,Urine Clear (Clear); Color,Urine Yellow (Yellow); Glucose,Urine (UA) Normal (Normal); Ketones,Urine Negative (Negative); Leukocyte Esterase,Urine Negative (Negative); Nitrite,Urine Negative (Negative); Protein,Urine Trace mg/dL (Neg-Trace); Specific Gravity,Urine 1.015 (1.010-1.025); Urobilinogen,Urine Normal (Normal)
[2017-01-17 23:17] LABS: Bacteria,Urine None Seen per hpf (None-Few); Hyaline Casts,Urine None Seen per lpf (None-Few); Squamous Epithelial Cell,Urine Moderate per lpf (None-Few); WBC,Urine 0-3 per hpf (0-3)
[2017-01-17] MEDS: *HR* HYDROcodone/Acet 5/325 mg TABLET PO PRN (23:59)
[2017-01-18] MEDS: Insulin LISPRO 300 UNITS/3 ML VIAL SQ SCH ×4 (00:07→17:00)
[2017-01-18] MEDS: *HR* Morphine 2 MG/ML SYRINGE IVP PRN ×2 (04:59→09:06)
[2017-01-18 07:04] LABS: Basophils % 0.3 %; Eosinophils % 0.1 %; Hematocrit 37.2 % (37.5-50.1); Hemoglobin 12.9 g/dL (12.9-16.9); Immature Granulocytes % 0.4 % (0-4); Lymphocytes # 1.2 K/mcL (0.6-4.6); Lymphocytes % 12.1 %; Mean Corpuscular HGB Conc 34.7 g/dL (31.6-35.5); Mean Corpuscular Hemoglobin 29.5 pg (28.0-33.3); Mean Corpuscular Volume 85.1 fL (83.0-100.0); Mean Platelet Volume 9.5 fL (9.4-12.4); Monocytes # 0.8 K/mcL (0.0-1.3); Monocytes % 8.5 %; Neutrophils # 7.5 K/mcL (1.6-8.9); Platelet Count 164 K/mcL (140-400); Red Blood Count 4.37 M/mcL (4.19-5.50); Red Cell Distribution Width 13.6 % (11.5-14.5); Segmented Neutrophils % 78.6 %
[2017-01-18 07:18] LABS: Alanine Aminotransferase 18 Units/L (0-55); Albumin 3.2 g/dL (3.5-5.0); Albumin/Globulin Ratio 0.9 (1.1-2.2); Alkaline Phosphatase 95 Units/L (38-126); Aspartate Amino Transferase 19 Units/L (5-34); BUN/Creatinine Ratio 11 (6-26); Bilirubin,Total 1.5 mg/dL (0.2-1.2); Blood Urea Nitrogen 11 mg/dL (8-26); Calcium 8.6 mg/dL (8.6-10.8); Carbon Dioxide 28 mEq/L (19-29); Chloride 105 mEq/L (98-109); Globulin 3.5 g/dL (2.4-3.5); Glucose 131 mg/dL (70-99); INR 1.1; Osmolality,Calculated 295 (280-300); Potassium 3.9 mEq/L (3.5-4.5); Prothrombin Time 11.4 Seconds (9.4-12.1); Sodium 142 mEq/L (136-145); Total Protein 6.7 g/dL (6.0-8.3); eGFR For African Americans > 60 (> 60); eGFR For Non-African Americans > 60 (> 60)
[2017-01-18] MEDS: Beclomethasone 40mcg MDI IH SCH ×2 (08:28→19:36)
--- NOTE | 2017-01-18 08:38 | Internal Med Progress Note ---
<Jose Maria - Last Filed: 01/18/17 10:37> Date of Encounter: 01/18/17 Time of Encounter: 08:38 - Assessment and plan (1) Right humeral fracture Current Visit: Yes Status: Acute Assessment and plan: Nondisplaced humeral neck fracture. The fracture likely will not need surgical repair Consult orthopedic surgeon- Will be seen today. Continue pain management with hydrocodone and morphine Qualifiers: Encounter type: initial encounter Humerus Location: proximal Fracture type: closed Fracture morphology: other fracture Fracture alignment: nondisplaced Qualified Code(s): S42.294A - Other nondisplaced fracture of upper end of right humerus, initial encounter for closed fracture (2) Facial laceration Current Visit: Yes Status: Acute Assessment and plan: Sutures intact, no bleeding noted. Pain management with hydrocodone 5/325 every 6 hours when necessary Qualifiers: Encounter type: initial encounter Qualified Code(s): S01.81XA - Laceration without foreign body of other part of head, initial encounter (3) Alzheimer's dementia Current Visit: Yes Status: Chronic Assessment and plan: Patient has baseline dementia but according to family has had increased confusion over the last couple of days. - Urinalysis negative - No signs of pulmonary infiltration, abdominal x-ray demonstrated normal bowel gas patterns without increased amount of stool throughout the colon to suggest constipation - PT/OT consult for evaluation of functional capacity - We will monitor for other signs and causes of metabolic encephalopathy. Qualifiers: Alzheimer's disease onset: unspecified onset Dementia behavioral disturbance: without behavioral disturbance Qualified Code(s): G30.9 - Alzheimer's disease, unspecified; F02.80 - Dementia in other diseases classified elsewhere without behavioral disturbance (4) Frequent falls Current Visit: Yes Status: Chronic Assessment and plan: Patient is already a fall risk with increased frequency of falls and altered mental status. At baseline he is only able to feed himself and does need assistance with other ADLs. - Social service consult as patient may need temporary versus long-term placement (5) Hypertension Current Visit: Yes Status: Chronic Assessment and plan: BP appropriate, continue current medications. Qualifiers: Hypertension type: essential hypertension Qualified Code(s): I10 - Essential (primary) hypertension (6) Diabetes mellitus Current Visit: Yes Status: Chronic Assessment and plan: Known type II diabetic, glucoses are appropriate Plan: Before meals at bedtime glucose checks Continue low-dose inpatient sliding scale insulin Qualifiers: Diabetes mellitus type: type 2 Diabetes mellitus complication status: without complication Diabetes mellitus senior living insulin use: without extermination inspector use Qualified Code(s): E11.9 - Type 2 diabetes mellitus without complications (7) DVT prophylaxis Current Visit: Yes Status: Acute Assessment and plan: SCDs - Subjective Interval history: Mr. Carbajal 86-year-old male seen and evaluated patient bedside this morning. He is confused and does not answer questions appropriately. He is alert and interactive and does have some tenderness to palpation of his right upper extremity. - Constitutional Vitals: Temp Pulse Resp BP Pulse Ox 98.6 F 69 16 119/64 93 01/18/17 06:24 01/18/17 06:24 01/18/17 08:33 01/18/17 06:24 01/18/17 08:33 General appearance: Present: A&O X 1, mild distress. Absent: answers questions appropriately Exam: HEENT: Normocephalic, patient has a hematoma above the right eyebrow and ecchymosis of the periorbital region of the right eye. He is edentulous, mucous membranes slightly dry, eyes asymmetric bilateral. Neck is supple trachea midline Cardiac: Regular rate and rhythm positive S1-S2, radial pulses were 2+ bilateral Respiratory: Clear to auscultation all lung calle bilaterally Abdominal exam: Soft, positive bowel sounds, no signs of ecchymosis or erythema on the abdominal skin no lacerations, mild tenderness to palpation Extremities: Right upper extremity is in a sling secondary to a fracture. Left upper extremity patient is moving spontaneously, moving bilateral lower extremity spontaneously. Internal Medicine: Result - Labs CBC & Chem 7: 01/18/17 06:06 01/18/17 06:06 Labs: Short CBC 01/17/17 01/18/17 Range/Units 21:57 06:06 WBC 12.0 H 9.6 (4.3-11.1) K/mcL Hgb 13.8 12.9 (12.9-16.9) g/dL Hct 39.8 37.2 L (37.5-50.1) % Plt Count 177 164 (140-400) K/mcL Neutrophils # 10.4 H 7.5 (1.6-8.9) K/mcL BMP 01/17/17 01/18/17 21:57 06:06 Sodium 141 142 Potassium 4.0 3.9 Chloride 107 105 Carbon Dioxide 26 28 BUN 8 11 Creatinine 0.96 1.00 Glucose 144 H 131 H Calcium 9.3 8.6 Liver Function 01/17/17 01/18/17 Range/Units 21:57 06:06 Total Bilirubin 1.0 1.5 H (0.2-1.2) mg/dL AST 19 19 (5-34) Units/L ALT 18 18 (0-55) Units/L Alkaline Phosphatase 99 95 (38-126) Units/L Albumin 3.5 3.2 L (3.5-5.0) g/dL Urine 01/17/17 Range/Units 23:00 Urine Color Yellow (Yellow) Urine Clarity Clear (Clear) Urine pH 8.0 (5.0-8.0) pH Units Ur Specific [place] 1.015 (1.010-1.025) Urine Protein Trace (Neg-Trace) mg/dL Urine Glucose (UA) Normal (Normal) mg/dL - ABG Interpretation ABG results: PT/INR, D-dimer PT 11.4 Seconds (9.4-12.1) 01/18/17 06:06 - Impressions Impressions Chest X-Ray 01/17/17 22:33 IMPRESSION: No acute cardiopulmonary abnormality. D/ / Jermain Dumont / Jermain Dumont Interpreting Provider: Jermain Dumont Chest/Abdomen X-ray 01/18/17 09:00 IMPRESSION: Normal bowel gas pattern without increased amount of stool throughout the colon to suggest constipation. D/ / Vignesh Treviño MD / Vignesh Treviño MD Interpreting Provider: Vignesh Treviño MD - VTE Documentation of Mechanical Device: Intermittent pneumatic compression device Consult Discharge Plan - Plan Referrals: NONE,PCP [Primary Care Provider] - <Frankie Edwards - Last Filed: 01/18/17 17:56> Date of Encounter: 01/18/17 - Assessment and plan (1) Right humeral fracture Current Visit: Yes Status: Acute Qualifiers: Encounter type: initial encounter Humerus Location: proximal Fracture type: closed Fracture morphology: other fracture Fracture alignment: nondisplaced Qualified Code(s): S42.294A - Other nondisplaced fracture of upper end of right humerus, initial encounter for closed fracture (2) Facial laceration Current Visit: Yes Status: Acute Qualifiers: Encounter type: initial encounter Qualified Code(s): S01.81XA - Laceration without foreign body of other part of head, initial encounter (3) Periorbital hematoma of right eye Current Visit: Yes Status: Acute (4) Head injury Current Visit: Yes Status: Acute Qualifiers: Encounter type: initial encounter Qualified Code(s): S09.90XA - Unspecified injury of head, initial encounter (5) Alzheimer's dementia Current Visit: Yes Status: Chronic Qualifiers: Alzheimer's disease onset: unspecified onset Dementia behavioral disturbance: without behavioral disturbance Qualified Code(s): G30.9 - Alzheimer's disease, unspecified; F02.80 - Dementia in other diseases classified elsewhere without behavioral disturbance (6) Diabetes mellitus Current Visit: Yes Status: Chronic Qualifiers: Diabetes mellitus type: type 2 Diabetes mellitus complication status: without complication Diabetes mellitus senior living insulin use: without extermination inspector use Qualified Code(s): E11.9 - Type 2 diabetes mellitus without complications (7) Hypertension Current Visit: Yes Status: Chronic Qualifiers: Hypertension type: essential hypertension Qualified Code(s): I10 - Essential (primary) hypertension - Constitutional Vitals: Temp Pulse Resp BP Pulse Ox 97.6 F 56 16 160/73 92 01/18/17 15:53 01/18/17 15:53 01/18/17 15:53 01/18/17 15:53 01/18/17 15:53 Internal Medicine: Result - Labs CBC & Chem 7: 01/18/17 06:06 01/18/17 06:06 Labs: Short CBC 01/17/17 01/18/17 Range/Units 21:57 06:06 WBC 12.0 H 9.6 (4.3-11.1) K/mcL Hgb 13.8 12.9 (12.9-16.9) g/dL Hct 39.8 37.2 L (37.5-50.1) % Plt Count 177 164 (140-400) K/mcL Neutrophils # 10.4 H 7.5 (1.6-8.9) K/mcL BMP 01/17/17 01/18/17 21:57 06:06 Sodium 141 142 Potassium 4.0 3.9 Chloride 107 105 Carbon Dioxide 26 28 BUN 8 11 Creatinine 0.96 1.00 Glucose 144 H 131 H Calcium 9.3 8.6 Liver Function 01/17/17 01/18/17 Range/Units 21:57 06:06 Total Bilirubin 1.0 1.5 H (0.2-1.2) mg/dL AST 19 19 (5-34) Units/L ALT 18 18 (0-55) Units/L Alkaline Phosphatase 99 95 (38-126) Units/L Albumin 3.5 3.2 L (3.5-5.0) g/dL Urine 01/17/17 Range/Units 23:00 Urine Color Yellow (Yellow) Urine Clarity Clear (Clear) Urine pH 8.0 (5.0-8.0) pH Units Ur Specific [place] 1.015 (1.010-1.025) Urine Protein Trace (Neg-Trace) mg/dL Urine Glucose (UA) Normal (Normal) mg/dL - ABG Interpretation ABG results: PT/INR, D-dimer PT 11.4 Seconds (9.4-12.1) 01/18/17 06:06 - Impressions Impressions Chest X-Ray 01/17/17 22:33 IMPRESSION: No acute cardiopulmonary abnormality. D/ / Jermain Dumont / Jermain Dumont Interpreting Provider: Jermain Dumont Chest/Abdomen X-ray 01/18/17 09:00 IMPRESSION: Normal bowel gas pattern without increased amount of stool throughout the colon to suggest constipation. D/ / Vignesh Treviño MD / Vignesh Treviño MD Interpreting Provider: Vignesh Treviño MD - Attending Attestation I examined this patient and my medical decision-making was reviewed with the Resident Physician on 01/18/17. I agree with the documented findings, disposition and treatment plan as described except to the extent set forth below. Mr Carbajal is currently admitted for R humeral fracture s/p fall. He remains moderate to high risk due to potential for worsening clinical status. Mr Carbajal is confused to situation. He is incoherent in his speech. Exam Alert. Appears comfortable Mucus membrane dry Heart reg No wheeze Perioorbital hematoma on R. Sling R arm I/P 1. R periorbital hematoma 2. R humeral fracture 3. Dementia Further diagnoses and plan as above.
[2017-01-18] MEDS: Loratadine 10 MG TABLET PO SCH (08:50)
[2017-01-18] MEDS: Cyanocobalamin (B-12) 1,000 MCG TABLET PO SCH ×2 (08:51→22:25)
[2017-01-18] MEDS: amLODIPine 5 MG TABLET PO SCH (08:51)
[2017-01-18] MEDS: Multivit/Ca/Min/Fe/FA 1 TAB TABLET PO SCH (08:51)
[2017-01-18] MEDS: Folic Acid 1 MG TABLET PO SCH (08:51)
--- NOTE | 2017-01-18 20:45 | Orthopedic Consult Note ---
Date of Encounter: 01/18/17 Time of Encounter: 20:41 History of Present Illness Chief complaint: Right shoulder pain HPI: Mr. Carbajal is a 86 year old male who apparently had a fall at his home yesterday. He sustained a head injury as well as an injury to his right shoulder. He was admitted with a facial/head laceration and a proximal humerus fracture. The patient does have a history of Alzheimer's dementia and is a poor historian. He should not complains of pain in and about the right shoulder. Denies elbow or hand pain. For complete history and physical data please see the completed portion of the medical record. Pertinent orthopedic examination reveals some fullness and pain about the right shoulder. There is minimal ecchymosis. Distal neurosensory exam appears to be grossly intact. I reviewed x-rays. These reveal a nondisplaced fracture of the surgical neck area of the right proximal humerus. Impression: Nondisplaced fracture right proximal humerus Recommendation: I would recommend initially treating the patient with a sling and swath strap and his the pain improves can start to do some range of motion exercises. This does not require any surgical or other intervention. In essence the patient can begin to use the arm as tolerated once the pain improves. Would be cautious with pain medications in light of his underlying dementia and is high risk for falls already. Would need to see the patient in follow-up in probably 3-4 weeks' time after discharge. Thank you very much for allowing me to see care for Mr. Carbajal. Sincerely, Carlos Lopez,DO Past Med Surg Social Fam HX - Past Medical History Medical history: DVT, dementia, diabetes, hyperlipidemia, hypertension, osteoporosis Psychiatric history: no psych history - Past Surgical History Surgical History: cholecystectomy, prostatectomy - Social History Smoking Status: Former smoker Smokeless Tobacco Status: No Alcohol use: none Drug use: none - Family History Mother Living Status: Hx Family Cardiac Disorders: No Hx Family Respiratory Disorders: Yes Hx Family Cancer: No Hx Family GI Disorders: No Hx Family Genitourinary Disorders: No Hx Family Endocrine Disorder: No Hx Family Musculoskeletal Disorders: No Hx Family Neuromuscular Disorders: No Hx Family Neurologic Disorders: No Hx Family HEENT Disorders: No Hx Family Autoimmune Disorders: No Hx Family Reproductive Disorders: No Hx Family Psychosocial Disorders: No Hx Family Medical Disorders: No Medications and Allergies Albuterol Sulfate [Ventolin Hfa] 2 puff IH Q4H PRN 02/20/16 [History] Beclomethasone Diprop 40mcg [QVAR 40 mcg] 1 puff IH BID 02/20/16 [History] Calcium Carbonate/Vitamin D3 [Calcium 600 + Vit D Tablet] 1 tab PO DAILY [History] Cyanocobalamin (Vitamin B-12) [Vitamin B12] 5,000 mcg PO BID 02/20/16 [History] Donepezil HCl 23 mg PO HS 02/20/16 [History] Fluticasone Propionate Nasal [Flonase] 1 - 2 spray NS DAILY PRN 02/20/16 [ History] Glimepiride [Amaryl] 1 mg PO QPM 02/20/16 [History] Glimepiride [Amaryl] 2 mg PO QAM 02/20/16 [History] Loratadine [Allergy Relief] 10 mg PO DAILY 02/20/16 [History] Losartan [Cozaar] 25 mg PO DAILY 02/20/16 [History] Memantine [Namenda] 10 mg PO DAILY 02/20/16 [History] Multivitamin [One Daily Essential] 1 tab PO DAILY 02/20/16 [History] Pantoprazole Sodium [Protonix] 40 mg PO DAILY 02/20/16 [History] Perphenazine 6 mg PO HS 02/20/16 [History] Saline Nasal Vevay [Saline Nasal Vevay] 1 - 2 ml NS Q4-6H PRN 02/20/16 [History] Sertraline [Zoloft] 50 mg PO DAILY 02/20/16 [History] amLODIPine [Norvasc] 5 mg PO DAILY 02/20/16 [History] Folic Acid 1 mg PO DAILY #30 tablet 02/24/16 [Rx] 3 Allergy/AdvReac Type Severity Reaction Status Date / Time No Known Allergies Allergy Verified 08/17/15 10:29 All Systems Reviewed: A 10-system review of systems was performed and is negative for pertinent findings except as documented above in the HPI. Physical Exam - Constitutional Vitals: Temp Pulse Resp BP Pulse Ox 97.8 F 61 16 147/67 93 01/18/17 19:25 01/18/17 19:25 01/18/17 19:25 01/18/17 19:25 01/18/17 19:25 Results - Labs Result Diagrams: 01/18/17 06:06 01/18/17 06:06 Labs: Abnormal lab results Hct 37.2 % (37.5-50.1) L 01/18/17 06:06 Glucose 131 mg/dL (70-99) H 01/18/17 06:06 POC Glucose 178 (58-89) H 01/18/17 19:20 Total Bilirubin 1.5 mg/dL (0.2-1.2) H 01/18/17 06:06 Albumin 3.2 g/dL (3.5-5.0) L 01/18/17 06:06 Albumin/Globulin Ratio 0.9 (1.1-2.2) L 01/18/17 06:06 Urine Microscopic RBC 3-5 per hpf (0-3) H 01/17/17 23:00 Ur Squamous Epith Cells Moderate per lpf (None-Few) H 01/17/17 23:00 H & H 01/17/17 01/18/17 Range/Units 21:57 06:06 Hgb 13.8 12.9 (12.9-16.9) g/dL Hct 39.8 37.2 L (37.5-50.1) % All other labs normal. - Diagnostic results Shoulder x-ray: image reviewed Consult Discharge Plan - Plan Referrals: NONE,PCP [Primary Care Provider] -
[2017-01-18] MEDS ORDERED: *HR* Morphine 2 MG/ML SYRINGE IVP SCH (22:05)
[2017-01-18] MEDS: *HR* HYDROcodone/Acet 5/325 mg TABLET PO PRN (22:24)
[2017-01-18] MEDS: Perphenazine 2 MG TABLET PO SCH (22:25)
[2017-01-18] MEDS: (Donepezil Hcl [Donepezil Hcl] 23 MG) PO SCH (22:26)
[2017-01-19] MEDS: Insulin LISPRO 300 UNITS/3 ML VIAL SQ SCH ×4 (01:25→12:15)
[2017-01-19 05:16] LABS: Basophils % 0.5 %; Eosinophils # 0.1 K/mcL (0.0-0.6); Hemoglobin 12.7 g/dL (12.9-16.9); Immature Granulocytes % 0.5 % (0-4); Lymphocytes # 1.3 K/mcL (0.6-4.6); Lymphocytes % 19.6 %; Mean Corpuscular HGB Conc 34.3 g/dL (31.6-35.5); Mean Corpuscular Hemoglobin 29.4 pg (28.0-33.3); Mean Corpuscular Volume 85.6 fL (83.0-100.0); Mean Platelet Volume 9.7 fL (9.4-12.4); Monocytes # 0.7 K/mcL (0.0-1.3); Monocytes % 11.2 %; Neutrophils # 4.3 K/mcL (1.6-8.9); Platelet Count 163 K/mcL (140-400); Red Blood Count 4.32 M/mcL (4.19-5.50); Red Cell Distribution Width 13.4 % (11.5-14.5); Segmented Neutrophils % 66.2 %
[2017-01-19 05:33] LABS: Alanine Aminotransferase 17 Units/L (0-55); Albumin 3.1 g/dL (3.5-5.0); Albumin/Globulin Ratio 0.9 (1.1-2.2); Alkaline Phosphatase 87 Units/L (38-126); Aspartate Amino Transferase 21 Units/L (5-34); BUN/Creatinine Ratio 17 (6-26); Bilirubin,Total 1.9 mg/dL (0.2-1.2); Blood Urea Nitrogen 17 mg/dL (8-26); Calcium 9.1 mg/dL (8.6-10.8); Carbon Dioxide 28 mEq/L (19-29); Chloride 105 mEq/L (98-109); Globulin 3.6 g/dL (2.4-3.5); Glucose 128 mg/dL (70-99); Osmolality,Calculated 297 (280-300); Potassium 3.9 mEq/L (3.5-4.5); Sodium 142 mEq/L (136-145); Total Protein 6.7 g/dL (6.0-8.3); eGFR For African Americans > 60 (> 60); eGFR For Non-African Americans > 60 (> 60)
[2017-01-19] MEDS: Beclomethasone 40mcg MDI IH SCH ×2 (08:27→20:32)
[2017-01-19] MEDS: Loratadine 10 MG TABLET PO SCH (09:20)
[2017-01-19] MEDS: Folic Acid 1 MG TABLET PO SCH (09:20)
[2017-01-19] MEDS: Cyanocobalamin (B-12) 1,000 MCG TABLET PO SCH ×2 (09:20→20:55)
[2017-01-19] MEDS: Multivit/Ca/Min/Fe/FA 1 TAB TABLET PO SCH (09:20)
--- NOTE | 2017-01-19 15:41 | Internal Med Progress Note ---
<Jose Maria - Last Filed: 01/19/17 15:38> Date of Encounter: 01/19/17 Time of Encounter: 08:30 - Assessment and plan (1) Right humeral fracture Current Visit: Yes Status: Acute Assessment and plan: Nondisplaced humeral neck fracture. - Orthopedic surgery has evaluated and will plan for nonoperative management. Continue pain management with hydrocodone and morphine Qualifiers: Encounter type: initial encounter Humerus Location: proximal Fracture type: closed Fracture morphology: other fracture Fracture alignment: nondisplaced Qualified Code(s): S42.294A - Other nondisplaced fracture of upper end of right humerus, initial encounter for closed fracture (2) Facial laceration Current Visit: Yes Status: Acute Assessment and plan: Sutures intact, no bleeding noted. Pain management with hydrocodone 5/325 every 6 hours when necessary Qualifiers: Encounter type: initial encounter Qualified Code(s): S01.81XA - Laceration without foreign body of other part of head, initial encounter (3) Alzheimer's dementia Current Visit: Yes Status: Chronic Assessment and plan: Patient has baseline dementia but according to family has had increased confusion over the last couple of days. - Urinalysis negative - No signs of pulmonary infiltration, abdominal x-ray demonstrated normal bowel gas patterns without increased amount of stool throughout the colon to suggest constipation - PT/OT consult for evaluation of functional capacity - We will monitor for other signs and causes of metabolic encephalopathy. Qualifiers: Alzheimer's disease onset: unspecified onset Dementia behavioral disturbance: without behavioral disturbance Qualified Code(s): G30.9 - Alzheimer's disease, unspecified; F02.80 - Dementia in other diseases classified elsewhere without behavioral disturbance (4) Frequent falls Current Visit: Yes Status: Chronic Assessment and plan: Patient is already a fall risk with increased frequency of falls and altered mental status. At baseline he is only able to feed himself and does need assistance with other ADLs. - Social service consult as patient may need temporary versus long-term placement (5) Hypertension Current Visit: Yes Status: Chronic Assessment and plan: BP appropriate, continue current medications. Qualifiers: Hypertension type: essential hypertension Qualified Code(s): I10 - Essential (primary) hypertension (6) Diabetes mellitus Current Visit: Yes Status: Chronic Assessment and plan: Known type II diabetic, glucoses are appropriate Plan: Before meals at bedtime glucose checks Continue low-dose inpatient sliding scale insulin Qualifiers: Diabetes mellitus type: type 2 Diabetes mellitus complication status: without complication Diabetes mellitus manager terminal insulin use: without senior care use Qualified Code(s): E11.9 - Type 2 diabetes mellitus without complications (7) DVT prophylaxis Current Visit: Yes Status: Acute Assessment and plan: SCDs - Subjective Interval history: Mr. Carbajal 86-year-old male seen and evaluated patient bedside this morning. He is confused and mildly agitated. He does not answer questions appropriately. - Constitutional Vitals: Temp Pulse Resp BP Pulse Ox 97.7 F 73 16 146/79 93 01/19/17 10:50 01/19/17 10:50 01/19/17 10:50 01/19/17 10:50 01/19/17 10:50 General appearance: Present: A&O X 1, mild distress. Absent: answers questions appropriately Exam: HEENT: Normocephalic, patient has a hematoma above the right eyebrow and ecchymosis of the periorbital region of the right eye. He is edentulous, mucous membranes slightly dry, eyes asymmetric bilateral. Neck is supple trachea midline Cardiac: Regular rate and rhythm positive S1-S2, radial pulses were 2+ bilateral Respiratory: Clear to auscultation all lung calle bilaterally Abdominal exam: Soft, positive bowel sounds, no signs of ecchymosis or erythema on the abdominal skin no lacerations, mild tenderness to palpation Extremities: Right upper extremity is in a sling secondary to a fracture. Left upper extremity patient is moving spontaneously, moving bilateral lower extremity spontaneously. Internal Medicine: Result - Labs CBC & Chem 7: 01/19/17 04:15 01/19/17 04:15 Labs: Short CBC 01/19/17 Range/Units 04:15 WBC 6.4 (4.3-11.1) K/mcL Hgb 12.7 L (12.9-16.9) g/dL Hct 37.0 L (37.5-50.1) % Plt Count 163 (140-400) K/mcL Neutrophils # 4.3 (1.6-8.9) K/mcL BMP 01/19/17 04:15 Sodium 142 Potassium 3.9 Chloride 105 Carbon Dioxide 28 BUN 17 Creatinine 1.03 Glucose 128 H Calcium 9.1 Liver Function 01/19/17 Range/Units 04:15 Total Bilirubin 1.9 H (0.2-1.2) mg/dL AST 21 (5-34) Units/L ALT 17 (0-55) Units/L Alkaline Phosphatase 87 (38-126) Units/L Albumin 3.1 L (3.5-5.0) g/dL - ABG Interpretation ABG results: PT/INR, D-dimer PT 11.4 Seconds (9.4-12.1) 01/18/17 06:06 - VTE Documentation of Mechanical Device: Intermittent pneumatic compression device Consult Discharge Plan - Plan Referrals: NONE,PCP [Primary Care Provider] - <Frankie Edwards - Last Filed: 01/19/17 15:56> Date of Encounter: 01/19/17 - Assessment and plan (1) Right humeral fracture Current Visit: Yes Status: Acute Qualifiers: Encounter type: subsequent encounter Humerus Location: proximal Fracture type: closed Fracture morphology: other fracture Fracture alignment: nondisplaced Fracture healing: with routine healing Qualified Code(s): S42.294D - Other nondisplaced fracture of upper end of right humerus, subsequent encounter for fracture with routine healing (2) Facial laceration Current Visit: Yes Status: Acute Qualifiers: Encounter type: subsequent encounter Qualified Code(s): S01.81XD - Laceration without foreign body of other part of head, subsequent encounter (3) Periorbital hematoma of right eye Current Visit: Yes Status: Acute (4) Head injury Current Visit: Yes Status: Acute Qualifiers: Encounter type: subsequent encounter Qualified Code(s): S09.90XD - Unspecified injury of head, subsequent encounter (5) Alzheimer's dementia Current Visit: Yes Status: Chronic Qualifiers: Alzheimer's disease onset: unspecified onset Dementia behavioral disturbance: without behavioral disturbance Qualified Code(s): G30.9 - Alzheimer's disease, unspecified; F02.80 - Dementia in other diseases classified elsewhere without behavioral disturbance (6) Diabetes mellitus Current Visit: Yes Status: Chronic Qualifiers: Diabetes mellitus type: type 2 Diabetes mellitus complication status: without complication Diabetes mellitus manager terminal insulin use: without senior care use Qualified Code(s): E11.9 - Type 2 diabetes mellitus without complications (7) Hypertension Current Visit: Yes Status: Chronic Qualifiers: Hypertension type: essential hypertension Qualified Code(s): I10 - Essential (primary) hypertension - Constitutional Vitals: Temp Pulse Resp BP Pulse Ox 97.7 F 73 16 146/79 93 01/19/17 10:50 01/19/17 10:50 01/19/17 10:50 01/19/17 10:50 01/19/17 10:50 Internal Medicine: Result - Labs CBC & Chem 7: 01/19/17 04:15 01/19/17 04:15 Labs: Short CBC 01/19/17 Range/Units 04:15 WBC 6.4 (4.3-11.1) K/mcL Hgb 12.7 L (12.9-16.9) g/dL Hct 37.0 L (37.5-50.1) % Plt Count 163 (140-400) K/mcL Neutrophils # 4.3 (1.6-8.9) K/mcL BMP 01/19/17 04:15 Sodium 142 Potassium 3.9 Chloride 105 Carbon Dioxide 28 BUN 17 Creatinine 1.03 Glucose 128 H Calcium 9.1 Liver Function 01/19/17 Range/Units 04:15 Total Bilirubin 1.9 H (0.2-1.2) mg/dL AST 21 (5-34) Units/L ALT 17 (0-55) Units/L Alkaline Phosphatase 87 (38-126) Units/L Albumin 3.1 L (3.5-5.0) g/dL - ABG Interpretation ABG results: PT/INR, D-dimer PT 11.4 Seconds (9.4-12.1) 01/18/17 06:06 - Attending Attestation I examined this patient and my medical decision-making was reviewed with the Resident Physician on 01/19/17. I agree with the documented findings, disposition and treatment plan as described except to the extent set forth below. Mr Carbajal is currently admitted for acute R humeral fracture and closed head trauma s/p fall. He remains moderate to high risk due to potential for worsening neurolgic status. Mr Carbajal is eating breakfast. He remains confused to most events. Pain is tolerable at this point. No fever or chills. Working on d/c planning at this time. Exam Alert. Mild distress due to pain. Mucus membranes dry Heart reg Lungs clear Abd soft Ecchymoses improving. I/P 1. Closed head trauma 2. Fracture R humerus 3. Periorbital fracture D/C planning Further diagnoses and plan as above.
[2017-01-19] MEDS: amLODIPine 5 MG TABLET PO SCH (16:25)
[2017-01-19] MEDS: *HR* Morphine 2 MG/ML SYRINGE IVP PRN (16:53)
[2017-01-19] MEDS: *HR* HYDROcodone/Acet 5/325 mg TABLET PO PRN (20:55)
[2017-01-19] MEDS: Perphenazine 2 MG TABLET PO SCH (20:55)
[2017-01-20] MEDS: Insulin LISPRO 300 UNITS/3 ML VIAL SQ SCH ×3 (01:35→13:26)
[2017-01-20] MEDS: (Donepezil Hcl [Donepezil Hcl] 23 MG) PO SCH (01:35)
[2017-01-20] MEDS: *HR* HYDROcodone/Acet 5/325 mg TABLET PO PRN (04:16)
[2017-01-20 05:41] LABS: Basophils % 0.5 %; Eosinophils # 0.2 K/mcL (0.0-0.6); Eosinophils % 2.9 %; Hematocrit 38.5 % (37.5-50.1); Hemoglobin 13.1 g/dL (12.9-16.9); Immature Granulocytes % 0.3 % (0-4); Lymphocytes # 1.3 K/mcL (0.6-4.6); Lymphocytes % 19.9 %; Mean Corpuscular Hemoglobin 29.4 pg (28.0-33.3); Mean Corpuscular Volume 86.3 fL (83.0-100.0); Mean Platelet Volume 9.7 fL (9.4-12.4); Monocytes # 0.7 K/mcL (0.0-1.3); Monocytes % 10.7 %; Neutrophils # 4.3 K/mcL (1.6-8.9); Platelet Count 181 K/mcL (140-400); Red Blood Count 4.46 M/mcL (4.19-5.50); Red Cell Distribution Width 13.3 % (11.5-14.5); Segmented Neutrophils % 65.7 %
[2017-01-20 06:01] LABS: Alanine Aminotransferase 16 Units/L (0-55); Albumin 3.1 g/dL (3.5-5.0); Albumin/Globulin Ratio 0.8 (1.1-2.2); Alkaline Phosphatase 88 Units/L (38-126); Aspartate Amino Transferase 20 Units/L (5-34); BUN/Creatinine Ratio 18 (6-26); Bilirubin,Total 1.6 mg/dL (0.2-1.2); Blood Urea Nitrogen 17 mg/dL (8-26); Calcium 9.1 mg/dL (8.6-10.8); Carbon Dioxide 29 mEq/L (19-29); Chloride 104 mEq/L (98-109); Globulin 3.8 g/dL (2.4-3.5); Glucose 126 mg/dL (70-99); Osmolality,Calculated 297 (280-300); Potassium 3.9 mEq/L (3.5-4.5); Sodium 142 mEq/L (136-145); Total Protein 6.9 g/dL (6.0-8.3); eGFR For African Americans > 60 (> 60); eGFR For Non-African Americans > 60 (> 60)
[2017-01-20 06:50] VITALS: BP 144/67
[2017-01-20] MEDS: Beclomethasone 40mcg MDI IH SCH (08:04)
[2017-01-20] MEDS: Folic Acid 1 MG TABLET PO SCH (09:03)
[2017-01-20] MEDS: Multivit/Ca/Min/Fe/FA 1 TAB TABLET PO SCH (09:03)
[2017-01-20] MEDS: amLODIPine 5 MG TABLET PO SCH (09:03)
[2017-01-20] MEDS: Cyanocobalamin (B-12) 1,000 MCG TABLET PO SCH (09:03)
[2017-01-20] MEDS: Loratadine 10 MG TABLET PO SCH (09:03)
--- NOTE | 2017-01-20 11:11 | Discharge Summary ---
<Frankie Edwards - Last Filed: 01/20/17 12:54> Date of Encounter: 01/20/17 - Discharge Diagnosis (1) Right humeral fracture Status: Acute Qualifiers: Encounter type: subsequent encounter Humerus Location: proximal Fracture type: closed Fracture morphology: other fracture Fracture alignment: nondisplaced Fracture healing: with routine healing Qualified Code(s): S42.294D - Other nondisplaced fracture of upper end of right humerus, subsequent encounter for fracture with routine healing (2) Facial laceration Status: Acute Qualifiers: Encounter type: subsequent encounter Qualified Code(s): S01.81XD - Laceration without foreign body of other part of head, subsequent encounter (3) Periorbital hematoma of right eye Priority: Secondary Status: Acute (4) Head injury Priority: Secondary Status: Acute Qualifiers: Encounter type: subsequent encounter Qualified Code(s): S09.90XD - Unspecified injury of head, subsequent encounter (5) Alzheimer's dementia Status: Chronic Qualifiers: Alzheimer's disease onset: unspecified onset Dementia behavioral disturbance: without behavioral disturbance Qualified Code(s): G30.9 - Alzheimer's disease, unspecified; F02.80 - Dementia in other diseases classified elsewhere without behavioral disturbance; F02.80 - Dementia in other diseases classified elsewhere without behavioral disturbance; F02.80 - Dementia in other diseases classified elsewhere without behavioral disturbance (6) Diabetes mellitus Status: Chronic Qualifiers: Diabetes mellitus type: type 2 Diabetes mellitus complication status: without complication Diabetes mellitus longterm insulin use: without longterm use Qualified Code(s): E11.9 - Type 2 diabetes mellitus without complications (7) Hypertension Status: Chronic Qualifiers: Hypertension type: essential hypertension Qualified Code(s): I10 - Essential (primary) hypertension - Discharge Medications Prescriptions: HYDROcodone/Acet 5/325 mg [[place] 5-325 mg] 1 tab PO Q6HR PRN #20 tablet PRN Reason: Moderate Pain Home Medications: Albuterol Sulfate [Ventolin Hfa] 2 puff IH Q4H PRN 02/20/16 [History] Beclomethasone Diprop 40mcg [QVAR 40 mcg] 1 puff IH BID 02/20/16 [History] Calcium Carbonate/Vitamin D3 [Calcium 600 + Vit D Tablet] 1 tab PO DAILY [History] Cyanocobalamin (Vitamin B-12) [Vitamin B12] 5,000 mcg PO BID 02/20/16 [History] Donepezil HCl 23 mg PO HS 02/20/16 [History] Fluticasone Propionate Nasal [Flonase] 1 - 2 spray NS DAILY PRN 02/20/16 [ History] Glimepiride [Amaryl] 1 mg PO QPM 02/20/16 [History] Glimepiride [Amaryl] 2 mg PO QAM 02/20/16 [History] Loratadine [Allergy Relief] 10 mg PO DAILY 02/20/16 [History] Losartan [Cozaar] 25 mg PO DAILY 02/20/16 [History] Memantine [Namenda] 10 mg PO DAILY 02/20/16 [History] Multivitamin [One Daily Essential] 1 tab PO DAILY 02/20/16 [History] Pantoprazole Sodium [Protonix] 40 mg PO DAILY 02/20/16 [History] Perphenazine 6 mg PO HS 02/20/16 [History] Saline Nasal [place] [[place] Nasal [place]] 1 - 2 ml NS Q4-6H PRN 02/20/16 [History] Sertraline [Zoloft] 50 mg PO DAILY 02/20/16 [History] amLODIPine [Norvasc] 5 mg PO DAILY 02/20/16 [History] Folic Acid 1 mg PO DAILY #30 tablet 02/24/16 [Rx] HYDROcodone/Acet 5/325 mg [[place] 5-325 mg] 1 tab PO Q6HR PRN #20 tablet [Rx] Allergies/Adverse Reactions: 3 Allergy/AdvReac Type Severity Reaction Status Date / Time No Known Allergies Allergy Verified 08/17/15 10:29 Procedures/tests Complete & Pending: Procedures Performed prior 72 hours Category Date Time Status ECG 12 lead ECG [ECG] AM 0600 Y 01/18/17 06:00 Ordered EKG [ECG 12 lead ECG] [ECG] Routine Y 01/18/17 09:00 Stop Req Date of admission: 01/17/17 20:15 Primary care physician: PCP NONE Consults: 01/17/17 22:09 Consult to Orthopedic Surgery [CONS] Routine Consulting Provider: [facility] Reason for Consult: Right Humerus fracture Time Notified: 22:11 Call Completed: Yes 01/17/17 22:15 Consult to Occupational Therapy [CONS] Routine Comment: Evaluate, develop and implement POC Reason for Consult: Assess functional capacity Consult to Physical Therapy [CONS] Routine Comment: Evaluate, develop and implement POC Reason for Consult: Assessment functional capacity Consult to Computer Information Systems Instructor [CONS] Routine Reason for SW Consult: Pain Or placement to Alzheimer's facility - Patient Status Disposition: Transfer SNF Condition: Fair - Discharge Instructions Instructions: Arm Fracture in Adults (DC) Follow Up With: NONE,PCP [Primary Care Provider] - Additional Instructions: 1. Follow-up with your primary care provider in the next 3-5 days 2. Take all prescriptions as prescribed, any concerns or questions contact her primary care provider. Hospital course: Mr. Carbajal is a 86 year old male - Time Spent with Patient Total time spent providing and/or coordinating discharge services: 38min - Constitutional Vitals: Temp Pulse Resp BP Pulse Ox 97.8 F 52 16 144/67 95 01/20/17 06:44 01/20/17 06:44 01/20/17 08:06 01/20/17 06:44 01/20/17 08:06 - Attending Attestation I examined this patient and my medical decision-making was reviewed with the Resident Physician on 01/20/17. I agree with the documented findings, disposition and treatment plan as described except to the extent set forth below. Mr Carbajal has been admitted for acute closed head trauma and R humeral fracture. He is afebrile with stable vitals today. There is no operative management. He appears to be at baseline. Exam Alert. Comfortable up in chair. Heart reg No wheeze Ecchymoses improving. No edema Plan D/C today Follow up with PCP and ortho <Jose Maria - Last Filed: 01/20/17 13:26> Date of Encounter: 01/20/17 Time of Encounter: 11:09 - Discharge Diagnosis (1) Right humeral fracture Priority: Primary Status: Acute Qualifiers: Encounter type: subsequent encounter Humerus Location: proximal Fracture type: closed Fracture morphology: other fracture Fracture alignment: nondisplaced Fracture healing: with routine healing Qualified Code(s): S42.294D - Other nondisplaced fracture of upper end of right humerus, subsequent encounter for fracture with routine healing (2) Facial laceration Priority: Primary Status: Acute Qualifiers: Encounter type: subsequent encounter Qualified Code(s): S01.81XD - Laceration without foreign body of other part of head, subsequent encounter (3) Alzheimer's dementia Priority: Primary Status: Chronic Qualifiers: Alzheimer's disease onset: unspecified onset Dementia behavioral disturbance: without behavioral disturbance Qualified Code(s): G30.9 - Alzheimer's disease, unspecified; F02.80 - Dementia in other diseases classified elsewhere without behavioral disturbance; F02.80 - Dementia in other diseases classified elsewhere without behavioral disturbance; F02.80 - Dementia in other diseases classified elsewhere without behavioral disturbance (4) Frequent falls Priority: Primary Status: Chronic (5) Hypertension Priority: Secondary Status: Chronic Qualifiers: Hypertension type: essential hypertension Qualified Code(s): I10 - Essential (primary) hypertension (6) Diabetes mellitus Priority: Secondary Status: Chronic Qualifiers: Diabetes mellitus type: type 2 Diabetes mellitus complication status: without complication Diabetes mellitus intermediate school teacher insulin use: without intermediate school teacher use Qualified Code(s): E11.9 - Type 2 diabetes mellitus without complications (7) DVT prophylaxis Priority: Secondary Status: Acute Procedures/tests Complete & Pending: Procedures Performed prior 72 hours Category Date Time Status ECG 12 lead ECG [ECG] AM 0600 Y 01/18/17 06:00 Ordered EKG [ECG 12 lead ECG] [ECG] Routine Y 01/18/17 09:00 Stop Req Date of admission: 01/17/17 20:15 Primary care physician: PCP NONE Consults: 01/17/17 22:09 Consult to Orthopedic Surgery [CONS] Routine Consulting Provider: [facility] Reason for Consult: Right Humerus fracture Time Notified: 22:11 Call Completed: Yes 01/17/17 22:15 Consult to Occupational Therapy [CONS] Routine Comment: Evaluate, develop and implement POC Reason for Consult: Assess functional capacity Consult to Physical Therapy [CONS] Routine Comment: Evaluate, develop and implement POC Reason for Consult: Assessment functional capacity Consult to Computer Information Systems Instructor [CONS] Routine Reason for SW Consult: Pain Or placement to Alzheimer's facility Discharging clinician: Jose Maria Anticipated date of discharge: 01/20/17 - Patient Status Functional capacity at discharge: uses cane/walker Overall status at discharge: patient is progressing back to baseline - Diet and Activity Activity: as per physical therapy Diet: advance to your usual diet, diabetic diet Interval History: Mr. Carbajal is a 86 year old male with PMH of Alzheimer's dementia was admitted to general medical floor with right periorbital facial laceration and a right humeral fracture after wandering away from his home and following. He was brought to the emergency department where he was evaluated found to have a right humerus fracture and his laceration was sutured. He was admitted to the general medical floor, evaluated by orthopedic surgery who recommended nonoperative management. The patient's pain was controlled during his inpatient stay. His laboratory results were monitored and his hemoglobin remained stable. He was seen in value by physical therapy during his inpatient stay. His vitals, laboratory results and clinical picture remained stable throughout his inpatient stay. He was seen and evaluated by speech therapy recommendations were followed. Patient to go to [facility] post discharge. Script for sheldon sent for pain management. Hospital course: Mr. Carbajal is a 86 year old male - Time Spent with Patient Total time spent providing and/or coordinating discharge services: - Constitutional Vitals: Temp Pulse Resp BP Pulse Ox 97.8 F 52 16 144/67 95 01/20/17 06:44 01/20/17 06:44 01/20/17 08:06 01/20/17 06:44 01/20/17 08:06 General appearance: Present: A&O X 1, mild distress. Absent: answers questions appropriately Exam: HEENT: Normocephalic, patient has a hematoma above the right eyebrow and ecchymosis of the periorbital region of the right eye. He is edentulous, mucous membranes moist, eyes symmetric bilateral. Neck is supple trachea midline Cardiac: Regular rate and rhythm positive S1-S2, radial pulses were 2+ bilateral Respiratory: Clear to auscultation all lung calle bilaterally Abdominal exam: Soft, positive bowel sounds, no signs of ecchymosis or erythema on the abdominal skin no lacerations, mild tenderness to palpation Extremities: Right upper extremity is in a sling secondary to a fracture. Left upper extremity patient is moving spontaneously, moving bilateral lower extremity spontaneously. - VTE Documentation of Mechanical Device: Intermittent pneumatic compression device
--- NOTE | 2017-01-20 13:25 | Physician Discharge Referral ---
ExtendedCare Referral Info Transfer To: [facility] Provider in Charge after Transfer: PCP Institutional Level of Care: Skilled - Diagnosis (1) Right humeral fracture Priority: Primary Status: Acute (2) Facial laceration Priority: Primary Status: Acute (3) Alzheimer's dementia Priority: Primary Status: Chronic (4) Frequent falls Priority: Primary Status: Chronic (5) Hypertension Priority: Secondary Status: Chronic (6) Diabetes mellitus Priority: Secondary Status: Chronic (7) DVT prophylaxis Priority: Secondary Status: Acute - Transfer Medications Prescriptions: HYDROcodone/Acet 5/325 mg [[place] 5-325 mg] 1 tab PO Q6HR PRN #20 tablet PRN Reason: Moderate Pain Home Medications: Albuterol Sulfate [Ventolin Hfa] 2 puff IH Q4H PRN 02/20/16 [History] Beclomethasone Diprop 40mcg [QVAR 40 mcg] 1 puff IH BID 02/20/16 [History] Calcium Carbonate/Vitamin D3 [Calcium 600 + Vit D Tablet] 1 tab PO DAILY [History] Cyanocobalamin (Vitamin B-12) [Vitamin B12] 5,000 mcg PO BID 02/20/16 [History] Donepezil HCl 23 mg PO HS 02/20/16 [History] Fluticasone Propionate Nasal [Flonase] 1 - 2 spray NS DAILY PRN 02/20/16 [ History] Glimepiride [Amaryl] 1 mg PO QPM 02/20/16 [History] Glimepiride [Amaryl] 2 mg PO QAM 02/20/16 [History] Loratadine [Allergy Relief] 10 mg PO DAILY 02/20/16 [History] Losartan [Cozaar] 25 mg PO DAILY 02/20/16 [History] Memantine [Namenda] 10 mg PO DAILY 02/20/16 [History] Multivitamin [One Daily Essential] 1 tab PO DAILY 02/20/16 [History] Pantoprazole Sodium [Protonix] 40 mg PO DAILY 02/20/16 [History] Perphenazine 6 mg PO HS 02/20/16 [History] Saline Nasal [place] [[place] Nasal [place]] 1 - 2 ml NS Q4-6H PRN 02/20/16 [History] Sertraline [Zoloft] 50 mg PO DAILY 02/20/16 [History] amLODIPine [Norvasc] 5 mg PO DAILY 02/20/16 [History] Folic Acid 1 mg PO DAILY #30 tablet 02/24/16 [Rx] HYDROcodone/Acet 5/325 mg [[place] 5-325 mg] 1 tab PO Q6HR PRN #20 tablet [Rx] Allergies/Adverse Reactions: 3 Allergy/AdvReac Type Severity Reaction Status Date / Time No Known Allergies Allergy Verified 08/17/15 10:29 - Respiratory Orders Smoking Cessation: Smoking cessation has been advised. For more information, call the [place] Tobacco Quit Line at 1-111-ORBX-NOW. - Ancillary Orders May use pressure relief devices daily prn, May consult with Dentist, Sales Contract Administrator, Halver Machine Operator PRN - Advance Directives Living Will: No Power of Hoisting Laborer: No Code Status: DNR-Arrest/Don't Intubate - Mobility Orders Ambulate (with assistance) - Rehabiliation Orders Rehab Potential: Fair Rehab Orders: Evaluation for Physical Therapy, Evaluation for Occupational Therapy - Treatments Skin tear care topically daily PRN per policy, Fleet enema rectally every other day PRN cleansing purposes - Diet Orders Regular (diabetic) CERTIFICATION: I certify that the transfer of the above named patient to an Extended Care Facility is necessary for the continuing treatment of the diagnosis listed. The above information is true and accurate reflection of patient's current condition. Confidential - Redisclosure prohibited without a patient's written consent.
[2017-01-20] MEDS ORDERED: Insulin LISPRO 300 UNITS/3 ML VIAL SQ SCH (21:00)
== END 2017-01-20 15:12 ==
LOC: EMEROO 16:41 → 3NENU 16:41 → SUATTDRO 20:15 → 3NENU 20:54
PROVIDERS: ADMIT Family Medicine; ATTEND Internal Medicine